=== PATIENT | male | born 1940 | race Caucasian/White ===

== ENCOUNTER → 2017-07-01 20:00 | Outpatient (CLI) | payer MEDICARE, SELFPAY | PROVIDERS: Family Provider Internal Medicine; PCP Internal Medicine; Visit Provider Psychiatry & Neurology Psychiatry | DX: G47.33 Obstructive sleep apnea (adult) (pediatric) (principal) | CPT/HCPCS: 95811 ==

== ENCOUNTER 2017-07-05 14:54 | Emergency (ER) | payer MEDICARE, SELFPAY ==
[2017-07-05 14:55] VITALS: BP 137/77; PULSE 87; RESP 14; TEMP 36.6; O2SAT 99; BMI 27.0
--- NOTE | 2017-07-05 15:10 | RAD_ITS ---
STUDY: X-RAY CHEST REASON FOR EXAM: Male, 77 years old. Chest pain TECHNIQUE: Single frontal view of the chest. COMPARISON: 08/16/2016 FINDINGS: Single chamber defibrillator on the left. The lungs are clear and expanded. There is no demonstrated pleural abnormality. Normal size heart. Normal mediastinum and jeffrey. Normal visualized pulmonary arteries. Normal visualized aortic arch and descending thoracic aorta. Normal visualized thoracic spine. Normal visualized ribs, clavicles, and shoulders. There is no demonstrated abnormality of the visualized soft tissue structures of the upper abdomen. RAD/Chest 1 View (Portable) IMPRESSION: No acute pulmonary findings. Electronically Signed: Ravi Chau MD at 15:50 EDT Tel , Service support ,
--- NOTE | 2017-07-05 15:10 | EKG12_ITS ---
Test Reason : CP Blood Pressure : / mmHG Vent. Rate : 090 BPM Atrial Rate : 090 BPM P-R Int : 246 ms QRS Dur : 122 ms QT Int : 394 ms P-R-T Axes : 063 -46 133 degrees QTc Int : 481 ms Sinus rhythm with 1st degree A-V block Left anterior fascicular block ST & T wave abnormality, consider lateral ischemia Abnormal ECG Confirmed by MOSHE HUERTAS, SARA ([id number]), scientific publications editor BIRGIT HONEYCUTT ([id number] on 07/07/2017 2:38:22 PM Referred By: OLAMIDE Confirmed By:SARA MESA MD
--- NOTE | 2017-07-05 15:18 | ED.VISSUMM ---
- ER Visit Summary Date of Service: 07/05/17 Chief Complaint: Shortness of breath History of Present Illness: The patient is a 77 M history of COPD, cardiomyopathy and defibrillator pacemaker. States since the first week of March he has had shortness of breath. He was treated at an urgent care with steroids I believe an antibiotic. Said he felt somewhat better but now is back to being short of breath. He has a cough is nonproductive. He says only chest pain he has is with soreness with coughing. Denies any hemoptysis. States he goes to [place] every winter in mid February comes back and May 1 week of June and he had similar symptoms last year when he came back in the cold and with seasonal allergies. No history of DVT or PE. Denies any leg pain or swelling. No pleuritic chest pain. Physical Examination: Older male no acute distress. Vital signs are stable afebrile. Pulse ox 99% room air no signs of hypoxia. No distress. HEENT exam unremarkable. Neck nontender no lymphadenopathy. Lungs coarse breath sounds but no rhonchi. Equal symmetrical. Heart regular rate and rhythm rate about 90. No murmur. Chest wall nontender. No crepitus. Abdomen soft and nontender. Moving all 4 extremities. Calves nontender without edema or cords. Neurologically is awake and alert with no focal motor deficits. Test Results: CBC normal white count of 6. BMP normal. Troponin less than 0.02. EKG shows sinus rhythm a rate of 90 with an old left bundle branch block. No acute signs of MD. Unchanged from prior EKG from 2017. Chest x-ray showed a left-sided defibrillator and chronic changes consistent with COPD but no pneumonia or failure. Read both by myself and the radiologist. Emergency Department Course and Treatment: A gentleman with dyspnea with a history of COPD. Undergo cardiac workup along with receiving aerosols and Solu-Medrol. Treatment Plan: Patient doing well on repeat exam after aerosols and Solu-Medrol. He was ambulated in the hallway and his pulse ox went from 91-94 % without being on oxygen. He did well walking. On repeat exam at 17 43 his sat is 96% while lying in bed. He feels comfortable being discharged home. He will be started on prednisone 40 mg a day for 1 week. Follow-up with his primary care physician Dr. Salomon this week. Disposition: Discharge Impression: Acute dyspnea secondary to acute exacerbation of COPD History of cardiomyopathy and defibrillator. This note was generated with [employer] dictation software. It may contain incorrect words, spelling, and punctuation that were not noted in review of the chart prior to signing ED Disposition - Plan for ED Patient: Chief Complaint: Shortness of Breath Referrals: Dustin Salomon MD [Primary Care Provider] -
--- NOTE | 2017-07-05 15:22 | ED.DCSUM_ITS ---
- ER Visit Summary Date of Service: 07/05/17 Chief Complaint: Shortness of breath History of Present Illness: The patient is a 77 M history of COPD, cardiomyopathy and defibrillator pacemaker. States since the first week of March he has had shortness of breath. He was treated at an urgent care with steroids I believe an antibiotic. Said he felt somewhat better but now is back to being short of breath. He has a cough is nonproductive. He says only chest pain he has is with soreness with coughing. Denies any hemoptysis. States he goes to [place] every winter in mid February comes back and May 1 week of June and he had similar symptoms last year when he came back in the cold and with seasonal allergies. No history of DVT or PE. Denies any leg pain or swelling. No pleuritic chest pain. Physical Examination: Older male no acute distress. Vital signs are stable afebrile. Pulse ox 99% room air no signs of hypoxia. No distress. HEENT exam unremarkable. Neck nontender no lymphadenopathy. Lungs coarse breath sounds but no rhonchi. Equal symmetrical. Heart regular rate and rhythm rate about 90. No murmur. Chest wall nontender. No crepitus. Abdomen soft and nontender. Moving all 4 extremities. Calves nontender without edema or cords. Neurologically is awake and alert with no focal motor deficits. Test Results: CBC normal white count of 6. BMP normal. Troponin less than 0.02. EKG shows sinus rhythm a rate of 90 with an old left bundle branch block. No acute signs of AR. Unchanged from prior EKG from 2017. Chest x-ray showed a left-sided defibrillator and chronic changes consistent with COPD but no pneumonia or failure. Read both by myself and the radiologist. Emergency Department Course and Treatment: A gentleman with dyspnea with a history of COPD. Undergo cardiac workup along with receiving aerosols and Solu- Medrol. Treatment Plan: Patient doing well on repeat exam after aerosols and Solu- Medrol. He was ambulated in the hallway and his pulse ox went from 91-94 % without being on oxygen. He did well walking. On repeat exam at 17 43 his sat is 96% while lying in bed. He feels comfortable being discharged home. He will be started on prednisone 40 mg a day for 1 week. Follow-up with his primary care physician Dr. Salomon this week. Disposition: Discharge Impression: Acute dyspnea secondary to acute exacerbation of COPD History of cardiomyopathy and defibrillator. This note was generated with [employer] dictation software. It may contain incorrect words, spelling, and punctuation that were not noted in review of the chart prior to signing ED Disposition - Plan for ED Patient: Chief Complaint: Shortness of Breath Referrals: Dustin Salomon MD [Primary Care Provider] -
[2017-07-05 15:47] LABS: Absolute Lymphocyte Count 0.95 X10^3/ul (0.83-4.51); Absolute Neutrophil Count 3.8 X10^3/uL (2.0-7.7); Basophil# 0.03 X10^3/uL; Basophil% 0.5 % (0-1); Eosinophil# 0.58 X10^3/uL; Eosinophils% 9.6 % (0-5); Hematocrit 38.6 % (40-54); Hemoglobin 13.3 g/dl (13.0-16.5); Lymphocyte # 0.95 X10^3/ul (4.0); Lymphocyte % 15.8 % (19-41); Mean Corp Hgb Conc 34.5 g/gl (32-36); Mean Corpuscular Hgb 32.5 pg (27.0-32.0); Mean Corpuscular Volume 94.4 fL (80-94); Mean Platelet Vol. 9.3 fl (6.2-12.0); Monocyte# 0.69 X10^3/uL; Monocyte% 11.4 % (0-10); Neutrophil # 3.77 X10^3/uL (2.7-7.7); Neutrophil % 62.5 % (47-70); Platelet Count 212 K/mm3 (150-450); RBC Distribution Width SD 43.4 fl (35.1-43.9); Red Blood Count 4.09 M/mm3 (4.6-6.2)
[2017-07-05 15:48] VITALS: PULSE 82; RESP 16
[2017-07-05 15:48] LABS: POSITIVE COUNT NO; POSITIVE DIFFERENTIAL NO; POSITIVE MORPHOLOGY NO
[2017-07-05] MEDS: MethylPREDNISolone 125 MG/2 ML Vial IV (15:48)
[2017-07-05] MEDS: Ipratropium/Albuterol Sulfate 3 ML AMPUL.NEB INHALATION (15:48)
[2017-07-05] MEDS: Albuterol 2.5 MG/3 ML VIAL.NEB. INHALATION ×2 (15:48)
[2017-07-05 15:56] LABS: Anion Gap 5 (5-15); BUN 13 mg/dL (7-18); BUN/Creat Ratio 11.9 RATIO (10-20); Calcium,Total 9.1 mg/dL (8.5-10.1); Chloride 103 mmol/L (98-107); Creatinine, Serum 1.09 mg/dL (0.70-1.30); EST Glomerular Filtration Rate 70 mL/min (>60); Est Glom Filt Rate - Afr Amer 85 mL/min (>60); Estimated Creatinine Clearance 63.28 ml/min; Glucose 89 mg/dL (74-106); Potassium 3.8 mmol/L (3.5-5.1); Sodium Level 137 mmol/L (136-145)
[2017-07-05 16:49] VITALS: O2SAT 95
[2017-07-05 17:33] VITALS: PULSE 95; RESP 20; O2SAT 95
--- NOTE | 2017-07-05 17:45 | ED.DEP ---
ED Disposition - Plan for ED Patient: Disposition: Home or Assisted Living Chief Complaint: Shortness of Breath Instructions: ED COPD Flare Prescriptions: Prednisone [Deltasone] 40 mg PO DAILY 7 Days tab Referrals: Dustin Salomon MD [Primary Care Provider] - 3-5 Days Additional Instructions: Call and follow-up with your doctor this week. Return to ER if you are feeling worse. Prednisone 40 mg a day for 7 days. Use your inhalers as needed.
[2017-07-05 17:52] VITALS: PULSE 95; RESP 14; O2SAT 96
== END 2017-07-05 17:52 | disposition home or self-care (01) ==
PROVIDERS: Emergency Provider Emergency Medicine; Family Provider Internal Medicine; PCP Internal Medicine
DX: J44.1 Chronic obstructive pulmonary disease with (acute) exacerbation (principal); R06.00 Dyspnea, unspecified; I42.9 Cardiomyopathy, unspecified; Z95.810 Presence of automatic (implantable) cardiac defibrillator; Z87.891 Personal history of nicotine dependence; Z79.899 Other long term (current) drug therapy
CPT/HCPCS: 71045; 80048; 84484; 85025; 93005; 94640; 96374; 99284; A4216

== ENCOUNTER → 2017-08-19 12:53 | Outpatient (CLI) | payer MEDICARE, SELFPAY | PROVIDERS: Family Provider Internal Medicine; PCP Internal Medicine; Visit Provider Internal Medicine Cardiovascular Disease | DX: Z00.00 Encounter for general adult medical examination without abnormal findings (principal) ==

== ENCOUNTER → 2017-09-03 06:51 | Outpatient (CLI) | payer MEDICARE, SELFPAY ==
--- NOTE | 2017-09-03 10:00 | STRESSREP ---
Stress Test Report Date: 09/03/2017 Procedure: Pharmacologic stress nuclear imaging study Indications: Shortness of breath/dyspnea Consent: Per the patient Procedure: The patient underwent pharmacologic (Regadenoson) evaluation with a peak heart rate of 86 beats per minute (59 predicted maximal heart rate) and a peak blood pressure of 114/70 mmHg. The baseline ECG demonstrated sinus rhythm with a nonspecific IVCD. The peak pharmacologic ECG demonstrated no obvious ECG changes. There was a rare PVC pretest and during recovery. There was no complaint of chest discomfort during pharmacologic infusion or recovery. The examination was discontinued secondary to completion of protocol. Impression: 1. Pharmacologic (Regadenoson) evaluation 2. Peak pharmacologic ECG with continued nonspecific IVCD with no obvious ECG changes. 3. There was a rare PVC pretest and during recovery 4. Nuclear images pending Myocardial perfusion imaging study: Technique: The patient was injected with 11.7 millicuries of technetium 99m Cardiolite and subsequently rest SPECT Cardiolite nuclear imaging was obtained in the horizontal long, vertical long, and short axis views. The patient underwent pharmacologic (Regadenoson) evaluation with a peak heart rate of 86 beats per minute (59 % percent predicted maximal heart rate) and a peak blood pressure of 114/70 mmHg. The patient was injected with 36 millicuries of technetium 99m Cardiolite and subsequently stress SPECT Cardiolite nuclear imaging was obtained in the horizontal long, vertical long, and short axis views. A gated Cardiolite study at peak stress was obtained. Interpretation: Rest and stress SPECT Cardiolite nuclear imaging status post realignment, normalization, and attenuation correction demonstrate a lot of uniform tracer uptake and myocardial perfusion appearing within normal limits. Also, there appears to be myocardial perfusion findings potentially compatible with left ventricular dilatation. There is diminished end systolic thickening and brightening. The gated Cardiolite study demonstrates diminished myocardial thickening and inward wall motion. The reported LVEF is 33 %. Impression: 1. Rest and stress SPECT Cardiolite nuclear imaging demonstrate relative uniform tracer uptake and myocardial perfusion appearing within normal limits. 2. Also, there appears to be myocardial perfusion findings potentially compatible with left ventricular dilatation. 3. The gated Cardiolite study reports an LVEF of 33 %. This note was generated with [employer] software. It may contain incorrect words, spelling, and punctuation that were not noted in checking the note before signing.
== END ==
PROVIDERS: Family Provider Internal Medicine; PCP Internal Medicine; Visit Provider Internal Medicine Cardiovascular Disease
DX: I42.8 Other cardiomyopathies (principal); I50.22 Chronic systolic (congestive) heart failure; I47.2 Ventricular tachycardia; Z95.810 Presence of automatic (implantable) cardiac defibrillator; R06.02 Shortness of breath
CPT/HCPCS: 78452; 93017; A9500; A4216; J2785

== ENCOUNTER → 2017-12-29 16:09 | Outpatient (CLI) | payer MEDICARE, SELFPAY ==
[2017-12-29 17:03] LABS: Anion Gap 6 (5-15); BUN 19 mg/dL (7-18); BUN/Creat Ratio 16.4 RATIO (10-20); Calcium,Total 9.2 mg/dL (8.5-10.1); Chloride 104 mmol/L (98-107); Creatinine, Serum 1.16 mg/dL (0.70-1.30); EST Glomerular Filtration Rate 65 mL/min (>60); Est Glom Filt Rate - Afr Amer 79 mL/min (>60); Glucose 96 mg/dL (74-106); Potassium 4.5 mmol/L (3.5-5.1); Sodium Level 138 mmol/L (136-145)
[2017-12-29 17:18] LABS: BNP,B-Type NATRIURETIC PEPTIDE 864.1 pg/mL (0-100)
== END ==
PROVIDERS: Family Provider Internal Medicine; PCP Internal Medicine; Referring Provider Nurse Practitioner Family; Visit Provider Nurse Practitioner Family
DX: I42.8 Other cardiomyopathies (principal); R06.09 Other forms of dyspnea; Z95.810 Presence of automatic (implantable) cardiac defibrillator
CPT/HCPCS: 36415; 80048; 83880

== ENCOUNTER → 2018-07-07 | Outpatient (CLI) | payer MEDICARE, SELFPAY ==
[2018-06-30 14:38] VITALS: BMI 24.3
[2018-07-07 10:41] LABS: International Normalized Ratio 2.1; Prothrombin Time (Protime)PT. 23.7 SECONDS (11.7-14.9)
[2018-07-07 11:07] LABS: Albumin, Serum 3.6 g/dL (3.2-5.0); BUN 31 mg/dL (7-18); BUN/Creat Ratio 10.4 RATIO (10-20); Calcium,Total 9.3 mg/dL (8.5-10.1); Chloride 94 mmol/L (98-107); Creatinine, Serum 2.98 mg/dL (0.70-1.30); EST Glomerular Filtration Rate 22 mL/min (>60); Est Glom Filt Rate - Afr Amer 26 mL/min (>60); Glucose 125 mg/dL (74-106); Phosphorus 2.7 mg/dL (2.5-4.9); Sodium Level 135 mmol/L (136-145)
[2018-07-07 11:21] LABS: Digoxin Level 1.51 ng/mL (0.80-2.00)
== END | disposition home or self-care (01) ==
PROVIDERS: Family Provider Internal Medicine; PCP Internal Medicine; Referring Provider Internal Medicine Cardiovascular Disease; Visit Provider Internal Medicine Cardiovascular Disease
DX: I50.22 Chronic systolic (congestive) heart failure (principal); I51.3 Intracardiac thrombosis, not elsewhere classified; I42.8 Other cardiomyopathies; I48.0 Paroxysmal atrial fibrillation; N17.9 Acute kidney failure, unspecified; Z95.810 Presence of automatic (implantable) cardiac defibrillator
CPT/HCPCS: 36415; 80069; 80162; 85610

== ENCOUNTER → 2018-07-08 | Outpatient (CLI) | payer MEDICARE, SELFPAY ==
[2018-06-30 14:38] VITALS: BMI 24.3
--- NOTE | 2018-07-08 10:52 | ECHOL_ITS ---
Reason For Study: CHF Procedure This was a limited 2D transthoracic echocardiogram. The exam was of adequate technical quality. Exam performed in department. Left Ventricle Mildly dilated left ventricle. Apical false tendon noted. Severe segmental systolic dysfunction (see wall motion). The estimated ejection fraction is 20 %. Unable to assess diastolic dysfunction. Anterio-Basal: Hypokinetic. Posterior-Basal: Hypokinetic. Infero-Basal: Severely Hypokinetic. Basal inferoseptal: Severely Hypokinetic. Basal anteroseptal: Hypokinetic. Mid-Anterior : Severely Hypokinetic. Mid-Lateral : Severely Hypokinetic. Mid-Posterior: Akinetic. Mid-Inferior: Akinetic. Mid-inferoseptal : Akinetic. Mid-anteroseptal : Severely Hypokinetic. Mobile : Akinetic. Right Ventricle Normal RV size. ICD or pacer leads identified within the right ventricle. Normal systolic function. Atria The left atrium is severely enlarged. Normal right atrium. ICD or pacer leads identified within the right atrium. No doppler evidence for ASD. Mitral Valve There is no mitral annular calcification. Mild diffuse mitral valve thickening. Mild papillary muscle dysfunction of the mitral valve. Trivial mitral valve insufficiency. Tricuspid Valve Normal tricuspid valve. Mild tricuspid valve insufficiency. Right ventricular systolic pressure estimated to be 53 mmHg. Aortic Valve Trisinus/trileaflet aortic valve. Normal aortic valve. Pulmonic Valve The pulmonic valve is not well visualized. Great Vessels Normal sized aortic root. Pericardium/Pleural No pericardial effusion. MMode/2D Measurements & Calculations LVIDd: 5.7 cm IVSd: 1.1 cm Ao root diam: 2.8 cm LVIDs: 4.7 cm LVPWd: 1.1 cm RVDd: 3.6 cm FS: 17.4 % LAV(MOD-bp): 141.6 ml LA A4 area: 34.0 cm2 LA dimension(2D): 4.3 cm LAV(MOD-bp) Indexed: 71.2 ml/m2 LAV(MOD-sp2): 138.3 ml LAV(MOD-sp4): 138.1 ml RA A4 area: 18.8 cm2 Doppler Measurements & Calculations TR max april: 347.4 cm/sec TR max P.6 mmHg Interpretation Summary Mildly dilated left ventricle. Severe segmental systolic dysfunction (see wall motion). The estimated ejection fraction is 20 %. Apical false tendon noted. The left atrium is severely enlarged. Mild diffuse mitral valve thickening. Mild papillary muscle dysfunction of the mitral valve. Trivial mitral valve insufficiency. Mild tricuspid valve insufficiency. Right ventricular systolic pressure estimated to be 53 mmHg. Unable to assess diastolic dysfunction. ICD or pacer leads identified within the right atrium ICD or pacer leads identified within the right ventricle. Ordering Physician: Irvin Allen Referring Physician: Dustin Salomon Performed By: Su Tucker RDCS, RVT
== END | disposition home or self-care (01) ==
LOC: CVS 10:51
PROVIDERS: Family Provider Internal Medicine; PCP Internal Medicine; Referring Provider Internal Medicine Cardiovascular Disease; Visit Provider Internal Medicine Cardiovascular Disease
DX: I50.22 Chronic systolic (congestive) heart failure (principal); I51.3 Intracardiac thrombosis, not elsewhere classified; E78.00 Pure hypercholesterolemia, unspecified; I42.8 Other cardiomyopathies; Z95.810 Presence of automatic (implantable) cardiac defibrillator
CPT/HCPCS: 93308

== ENCOUNTER 2018-08-03 08:44 | Outpatient (RCR) | payer MEDICARE, SELFPAY ==
[2018-06-30 14:38] VITALS: BMI 24.3
[2018-07-12 11:22] LABS: International Normalized Ratio 2.6; Prothrombin Time (Protime)PT. 28.3 SECONDS (11.7-14.9)
[2018-07-12 11:25] LABS: BUN 27 mg/dL (7-18); Creatinine, Serum 2.81 mg/dL (0.70-1.30); Glucose 133 mg/dL (74-106)
[2018-07-12 11:26] LABS: Anion Gap 4 (5-15); BUN/Creat Ratio 9.6 RATIO (10-20); Calcium,Total 9.4 mg/dL (8.5-10.1); Chloride 94 mmol/L (98-107); EST Glomerular Filtration Rate 23 mL/min (>60); Est Glom Filt Rate - Afr Amer 28 mL/min (>60); Potassium 3.4 mmol/L (3.5-5.1); Sodium Level 129 mmol/L (136-145)
[2018-07-20 08:55] LABS: Albumin, Serum 3.5 g/dL (3.2-5.0); BUN 28 mg/dL (7-18); BUN/Creat Ratio 10.3 RATIO (10-20); Calcium,Total 8.9 mg/dL (8.5-10.1); Chloride 102 mmol/L (98-107); Creatinine, Serum 2.72 mg/dL (0.70-1.30); EST Glomerular Filtration Rate 24 mL/min (>60); Est Glom Filt Rate - Afr Amer 29 mL/min (>60); Glucose 143 mg/dL (74-106); Phosphorus 2.8 mg/dL (2.5-4.9); Potassium 4.1 mmol/L (3.5-5.1); Sodium Level 136 mmol/L (136-145)
[2018-07-20 10:22] LABS: International Normalized Ratio 2.7
[2018-08-03 10:11] LABS: International Normalized Ratio 1.9; Prothrombin Time (Protime)PT. 22.1 SECONDS (11.7-14.9)
[2018-08-03 10:31] LABS: Albumin, Serum 3.3 g/dL (3.2-5.0); BUN 39 mg/dL (7-18); BUN/Creat Ratio 12.8 RATIO (10-20); Calcium,Total 8.8 mg/dL (8.5-10.1); Chloride 103 mmol/L (98-107); Creatinine, Serum 3.04 mg/dL (0.70-1.30); EST Glomerular Filtration Rate 21 mL/min (>60); Est Glom Filt Rate - Afr Amer 26 mL/min (>60); Glucose 147 mg/dL (74-106); Phosphorus 2.8 mg/dL (2.5-4.9); Potassium 3.9 mmol/L (3.5-5.1); Sodium Level 138 mmol/L (136-145)
== END 2018-08-03 10:00 | disposition home or self-care (01) ==
LOC: LAB 08:44
PROVIDERS: Family Provider Internal Medicine; PCP Internal Medicine; Referring Provider Internal Medicine Cardiovascular Disease; Visit Provider Internal Medicine Cardiovascular Disease
DX: N17.9 Acute kidney failure, unspecified (principal); I50.22 Chronic systolic (congestive) heart failure; I48.0 Paroxysmal atrial fibrillation; I51.3 Intracardiac thrombosis, not elsewhere classified
CPT/HCPCS: 36415; 80048; 80069; 85610

== ENCOUNTER 2018-08-23 09:51 | Outpatient (RCR) | payer MEDICARE, SELFPAY ==
[2018-08-07 08:34] VITALS: BMI 24.3
[2018-08-09 10:09] LABS: International Normalized Ratio 2.2
[2018-08-23 10:26] LABS: International Normalized Ratio 2.4; Prothrombin Time (Protime)PT. 26.4 SECONDS (11.7-14.9)
[2018-08-23 11:21] LABS: Albumin, Serum 3.3 g/dL (3.2-5.0); BUN 26 mg/dL (7-18); BUN/Creat Ratio 9.2 RATIO (10-20); Chloride 101 mmol/L (98-107); Creatinine, Serum 2.83 mg/dL (0.70-1.30); EST Glomerular Filtration Rate 23 mL/min (>60); Est Glom Filt Rate - Afr Amer 28 mL/min (>60); Glucose 125 mg/dL (74-106); Phosphorus 3.1 mg/dL (2.5-4.9); Potassium 3.8 mmol/L (3.5-5.1); Sodium Level 138 mmol/L (136-145)
== END 2018-08-23 10:00 | disposition home or self-care (01) ==
LOC: LAB 09:51
PROVIDERS: Family Provider Internal Medicine; PCP Internal Medicine; Referring Provider Internal Medicine Cardiovascular Disease; Visit Provider Internal Medicine Cardiovascular Disease
DX: I50.22 Chronic systolic (congestive) heart failure (principal); I48.0 Paroxysmal atrial fibrillation; I51.3 Intracardiac thrombosis, not elsewhere classified
CPT/HCPCS: 36415; 80069; 85610

== ENCOUNTER 2018-09-20 09:05 | Outpatient (RCR) | payer MEDICARE, SELFPAY ==
[2018-09-03 10:36] VITALS: BMI 24.1
[2018-09-20 10:40] LABS: Prothrombin Time (Protime)PT. 22.7 SECONDS (11.7-14.9)
[2018-09-20 11:25] LABS: Anion Gap 12 (5-15); BUN 35 mg/dL (7-18); BUN/Creat Ratio 11.9 RATIO (10-20); Calcium,Total 8.9 mg/dL (8.5-10.1); Chloride 103 mmol/L (98-107); Creatinine, Serum 2.93 mg/dL (0.70-1.30); EST Glomerular Filtration Rate 22 mL/min (>60); Est Glom Filt Rate - Afr Amer 27 mL/min (>60); Glucose 121 mg/dL (74-106); Potassium 3.5 mmol/L (3.5-5.1); Sodium Level 139 mmol/L (136-145)
== END 2018-10-06 16:00 | disposition home or self-care (01) ==
LOC: LAB 09:05
PROVIDERS: Family Provider Internal Medicine; PCP Internal Medicine; Referring Provider Internal Medicine Cardiovascular Disease; Visit Provider Internal Medicine Cardiovascular Disease
DX: N17.9 Acute kidney failure, unspecified (principal); I50.22 Chronic systolic (congestive) heart failure; I48.0 Paroxysmal atrial fibrillation; I51.3 Intracardiac thrombosis, not elsewhere classified
CPT/HCPCS: 36415; 80048; 85610

== ENCOUNTER 2018-10-03 06:06 | Emergency (ER) | payer MEDICARE, SELFPAY ==
[2018-09-03 10:36] VITALS: BMI 24.1
[2018-10-03 06:07] VITALS: BP 132/94; PULSE 61; RESP 15; TEMP 36.4; O2SAT 99; BMI 24.4
--- NOTE | 2018-10-03 06:18 | RAD_ITS ---
STUDY: X-RAY CHEST REASON FOR EXAM: Male, 78 years old. Cough. TECHNIQUE: PA and lateral views of the chest were obtained. COMPARISON: None. FINDINGS: A left-sided defibrillator is noted. The lungs are clear and expanded. There is no demonstrated pleural abnormality. Normal size heart. Normal mediastinum and jeffrey. Normal visualized pulmonary arteries. Normal visualized aortic arch and descending thoracic aorta. Normal visualized thoracic spine. Normal visualized ribs, clavicles, and shoulders. There is no demonstrated abnormality of the visualized soft tissue structures of the upper abdomen. RAD/Chest PA and Lateral IMPRESSION: Normal x-ray examination of the chest. Electronically Signed: Suleiman Johnson, at 7:02 EDT Tel , Service support ,
--- NOTE | 2018-10-03 06:18 | EKG12_ITS ---
Test Reason : ANXIETY Blood Pressure : / mmHG Vent. Rate : 063 BPM Atrial Rate : 063 BPM P-R Int : 226 ms QRS Dur : 184 ms QT Int : 492 ms P-R-T Axes : -19 146 101 degrees QTc Int : 503 ms AV dual-paced rhythm with prolonged AV conduction with occasional ventricular-paced complexes Biventricular pacemaker detected Abnormal ECG Confirmed by PAM HUERTAS, BEA ([id number]), editor managing director ANGIE WASHINGTON ([id number]) on 10/06/2018 10:36:09 AM Referred By: JOSE M Confirmed By:BEA OROZCO MD
--- NOTE | 2018-10-03 06:19 | ED.VIS.GEN ---
History of Present Illness Informant: Patient Onset: Days - 3 Narrative: Patient here with multiple complaints. Initial complaints shortness of breath worsening since Thursday. Nonproductive cough. Symptoms worse with exertion. No chest pains or tightness with exertion. History of cardiomyopathy, paroxysmal atrial fibrillation on warfarin. Reports pacemaker defibrillator was changed out September 02, is followed by Dr. Allen. Denies any vomiting or diarrhea. Reports this evening had difficulty sleeping, states when he would closely fall asleep would jerk. Denies any increased stress. Denies any NM history. Took Advil PM at 1 AM. Prior similar symptoms: Yes <Abilio Rosario - Last Filed: 10/03/18 06:41> <Brian Garcia - Last Filed: 10/03/18 08:00> Chief Complaint: Anxiety Past Medical History Smoking Status: Never smoker <Abilio Rosario - Last Filed: 10/03/18 06:41> <Brian Garcia - Last Filed: 10/03/18 08:00> - Allergies and Home Meds Allergies/Adverse Reactions: Allergies Penicillins Allergy (Verified 08/05/18 13:17) Hives Sulfa (Sulfonamide Antibiotics) Allergy (Verified 08/05/18 13:17) Hives MILKA Inhibitors Adverse Reaction (Severe, Verified 08/05/18 13:17) cough Primary Care Physician: Dustin Salomon MD [Primary Care Provider] - Review of Systems General: Denies: Chills, Fever, Sweats Eyes: Denies: Visual changes - bilaterally, Diplopia ENT: Denies: Rhinorrhea, Sore throat Cardiovascular: Denies: Chest pain, Palpitations Respiratory: Reports: Dyspnea, Cough. Denies: Dyspnea on exertion Gastrointestinal: Denies: Abdominal pain, Nausea, Vomiting, Diarrhea, Melena, Hematochezia Genitourinary: Denies: Dysuria, Hematuria, Frequency Musculoskeletal: Denies: Back pain, Extremity Pain Skin: Denies: Rash, Wounds Neurological: Denies: Headache, Weakness, Numbness <Abilio Rosario - Last Filed: 10/03/18 06:41> Physical Exam Vital Signs/Narrative: Vital Signs Temp Pulse Resp BP Pulse Ox 10/03/18 06:07 97.6 F L 61 15 132/94 H 99 Inital Vital Signs reviewed: Yes General: Well nourished, Well developed, No Acute Distress Head: Normocephalic, Atraumatic Eyes: Perrl, EOMI ENT: Moist mucous membranes, No rhinorrhea Neck: Supple, Nontender Cardiovascular: Regular rate, Regular rhythm, No murmurs Respiratory: No distress, CTA bilaterally, Chest nontender, - - Left upper chest device, incision clean, dry, intact. Abdomen: Soft, Nontender, Nondistended, Normal bowel sounds Back: Nontender, Normal Inspection Extremities: Nontender, No edema Skin: Normal color, No rash Neurological: Alert, Oriented x3, Cranial nerves II-XII grossly intact, Normal Strength, Normal Sensation Psychological: Normal affect, Normal Mood <Abilio Rosario - Last Filed: 10/03/18 06:41> Vital Signs/Narrative: Vital Signs Temp Pulse Resp BP Pulse Ox 10/03/18 06:07 97.6 F L 61 15 132/94 H 99 <Brian Garcia - Last Filed: 10/03/18 08:00> Diagnostic/Tx/Re-eval - EKG Initial EKG Interpretation: Paced - AV paced rhythm rate of 63 with no acute changes. Comparison to EKG in June 2017 is different however in the interim has had his ICD replaced. - Medical Decision Making Patient vital signs stable. EKG notes a paced rhythm. Labs are sent for evaluation including INR and digoxin evaluation. Chest x-ray ordered. Work-up initiated, patient will be signed out to morning physician for final disposition. <Abilio Rosario - Last Filed: 10/03/18 06:41> Impressions Chest X-Ray 10/03/18 06:18 IMPRESSION: Normal x-ray examination of the chest. Electronically Signed: Suleiman Johnson, at 7:02 EDT Tel , Service support , 10/03/18 06:18 Chest PA and Lateral [RAD] Stat Laboratory Results 10/03/18 10/03/18 10/03/18 06:25 06:25 06:25 WBC 7.3 RBC 3.36 L Hgb 11.3 L Hct 33.8 L MCV 100.6 H MCH 33.6 H MCHC 33.4 RDW Std Deviation 50.1 H RDW Coeff of Bebo 13.6 Plt Count 122 L MPV 9.9 Immature Gran % (Auto) 0.400 Neut % (Auto) 75.8 H Lymph % (Auto) 12.5 L Beaver % (Auto) 9.4 Eos % (Auto) 1.5 Baso % (Auto) 0.4 Absolute Neuts (auto) 5.6 Absolute Lymphs (auto) 0.92 Absolute Nucleated RBC 0.00 Nucleated RBC % 0 PT 24.2 H INR 2.2 Sodium 133 L Potassium 3.7 Chloride 99 Carbon Dioxide 28.0 Anion Gap 6 BUN 35 H Creatinine 2.86 H Estim Creat Clear Calc 23.74 Est GFR (MDRD) Af Amer 28 L Est GFR (MDRD) Non-Af 23 L BUN/Creatinine Ratio 12.2 Glucose 106 Calcium 9.2 Troponin I < 0.015 Digoxin 10/03/18 06:25 WBC RBC Hgb Hct MCV MCH MCHC RDW Std Deviation RDW Coeff of Bebo Plt Count MPV Immature Gran % (Auto) Neut % (Auto) Lymph % (Auto) Beaver % (Auto) Eos % (Auto) Baso % (Auto) Absolute Neuts (auto) Absolute Lymphs (auto) Absolute Nucleated RBC Nucleated RBC % PT INR Sodium Potassium Chloride Carbon Dioxide Anion Gap BUN Creatinine Estim Creat Clear Calc Est GFR (MDRD) Af Amer Est GFR (MDRD) Non-Af BUN/Creatinine Ratio Glucose Calcium Troponin I Digoxin 1.66 - Medical Decision Making Patient has stable chronic renal insufficiency, the rest of his work-up is negative and his INR is therapeutic. His chest x-ray is normal. With ambulation here in the ER, initially his pulse ox was 95, and went up to 98 while exerting himself, and he did not become dyspneic. He keeps talking about how he is very tired and has restless legs and because of that he cannot sleep. According to the , the restless legs has been an ongoing issue that has just been gradually getting worse and it was mainly the reason that the patient came in tonight. Dr. Rosario had offered him a prescription for Vistaril, which I have no issue writing him a temporary supply of, but he is advised to follow-up with his primary care doctor. Since his INR is therapeutic and his x-ray is unremarkable I do not think we need to risk kidney injury to rule out pulmonary embolus. At this time I think he is stable for discharge home. Discussed with him and they are comfortable with this, will also give him a dose of Ativan here prior to discharge as he would like to go home and sleep if able. <Brian Garcia - Last Filed: 10/03/18 08:00> ED Disposition <Abilio Rosario - Last Filed: 10/03/18 06:41> <Brian Garcia - Last Filed: 10/03/18 08:00> - Plan for ED Patient: Disposition: Home or Assisted Living Diagnosis: Dyspnea on exertion, Restless legs Instructions: ED Dyspnea, Understanding Restless Legs Syndrome Prescriptions: hydrOXYzine pamoate capsule [Vistaril] 25 - 50 mg PO TID PRN PRN #20 cap PRN Reason: Anxiety Prescription Printed Referrals: Dustin Salomon MD [Primary Care Provider] - 3-5 Days
[2018-10-03 06:34] LABS: Absolute Lymphocyte Count 0.92 X10^3/uL (0.83-4.51); Absolute Neutrophil Count 5.6 X10^3/uL (2.0-7.7); Basophil# 0.03 X10^3/uL; Basophil% 0.4 % (0-1); Eosinophil# 0.11 X10^3/uL; Eosinophils% 1.5 % (0-5); Hematocrit 33.8 % (40-54); Hemoglobin 11.3 g/dL (13.0-16.5); Lymphocyte # 0.92 X10^3/ul (4.0); Lymphocyte % 12.5 % (19-41); Mean Corp Hgb Conc 33.4 g/dL (32-36); Mean Corpuscular Hgb 33.6 pg (27.0-32.0); Mean Corpuscular Volume 100.6 fL (80-94); Mean Platelet Vol. 9.9 fl (6.2-12.0); Monocyte# 0.69 X10^3/uL; Monocyte% 9.4 % (0-10); NRBC Flagged by Analyzer 0 % (0-5); Neutrophil # 5.56 X10^3/uL (2.7-7.7); Neutrophil % 75.8 % (47-70); Platelet Count 122 K/mm3 (150-450); RBC Distribution Width CV 13.6 % (11.6-14.6); RBC Distribution Width SD 50.1 fl (35.1-43.9); Red Blood Count 3.36 M/mm3 (4.6-6.2); White Blood Count 7.3 K/mm3 (4.4-11.0)
[2018-10-03 06:40] LABS: International Normalized Ratio 2.2; Prothrombin Time (Protime)PT. 24.2 SECONDS (11.7-14.9)
[2018-10-03 06:50] LABS: Anion Gap 6 (5-15); BUN 35 mg/dL (7-18); BUN/Creat Ratio 12.2 RATIO (10-20); Calcium,Total 9.2 mg/dL (8.5-10.1); Chloride 99 mmol/L (98-107); Creatinine, Serum 2.86 mg/dL (0.70-1.30); EST Glomerular Filtration Rate 23 mL/min (>60); Est Glom Filt Rate - Afr Amer 28 mL/min (>60); Estimated Creatinine Clearance 23.74 ml/min; Glucose 106 mg/dL (74-106); Potassium 3.7 mmol/L (3.5-5.1); Sodium Level 133 mmol/L (136-145)
[2018-10-03 07:32] LABS: Digoxin Level 1.66 ng/mL (0.80-2.00)
[2018-10-03 07:42] VITALS: O2SAT 95
[2018-10-03 08:04] VITALS: BP 123/87; PULSE 74; RESP 18
[2018-10-03] MEDS: LORazepam 1 MG Tablet PO (08:06)
== END 2018-10-03 08:11 | disposition home or self-care (01) ==
PROVIDERS: Emergency Provider Emergency Medicine; Family Provider Internal Medicine; PCP Internal Medicine
DX: R06.09 Other forms of dyspnea (principal); G25.81 Restless legs syndrome; I48.0 Paroxysmal atrial fibrillation; I42.9 Cardiomyopathy, unspecified; Z95.0 Presence of cardiac pacemaker; Z79.01 Long term (current) use of anticoagulants
CPT/HCPCS: 71046; 80048; 80162; 84484; 85025; 85610; 93005; 99284; A4216

== ENCOUNTER 2018-10-22 10:37 | Outpatient (RCR) | payer MEDICARE, SELFPAY ==
[2018-10-22 11:36] LABS: Prothrombin Time (Protime)PT. 22.4 SECONDS (11.7-14.9)
[2018-10-22 11:49] LABS: Albumin, Serum 3.7 g/dL (3.2-5.0); Anion Gap 5 (5-15); BUN 39 mg/dL (7-18); BUN/Creat Ratio 13.6 RATIO (10-20); Calcium,Total 8.9 mg/dL (8.5-10.1); Chloride 98 mmol/L (98-107); Creatinine, Serum 2.86 mg/dL (0.70-1.30); EST Glomerular Filtration Rate 23 mL/min (>60); Est Glom Filt Rate - Afr Amer 28 mL/min (>60); Glucose 114 mg/dL (74-106); Phosphorus 4.1 mg/dL (2.5-4.9); Potassium 4.3 mmol/L (3.5-5.1); Sodium Level 133 mmol/L (136-145)
== END 2018-10-22 12:00 | disposition home or self-care (01) ==
LOC: LAB 10:37
PROVIDERS: Family Provider Internal Medicine; PCP Internal Medicine; Referring Provider Internal Medicine Cardiovascular Disease; Visit Provider Internal Medicine Cardiovascular Disease
DX: N17.9 Acute kidney failure, unspecified (principal); I50.22 Chronic systolic (congestive) heart failure; I48.0 Paroxysmal atrial fibrillation; I51.3 Intracardiac thrombosis, not elsewhere classified
CPT/HCPCS: 36415; 80048; 82040; 84100; 85610

== ENCOUNTER 2018-10-25 21:30 | Observation (INO) | payer MEDICARE, SELFPAY ==
[2018-10-25 21:31] VITALS: BP 104/71; PULSE 64; RESP 18; TEMP 36.4; O2SAT 98; BMI 24.8
[2018-10-25 21:46] VITALS: PULSE 65; O2SAT 98
--- NOTE | 2018-10-25 22:06 | RAD_ITS ---
STUDY: X-RAY CHEST REASON FOR EXAM: Male, 78 years old. Shortness of breath TECHNIQUE: Single frontal view of the chest. COMPARISON: 10/03/2018 FINDINGS: Dual-chamber pacemaker defibrillator on the left. The lungs are clear and expanded. There is no demonstrated pleural abnormality. Stable cardiomediastinal silhouette. Normal mediastinum and jeffrey. Normal visualized pulmonary arteries. Normal visualized aortic arch and descending thoracic aorta. Normal visualized thoracic spine. Normal visualized ribs, clavicles, and shoulders. There is no demonstrated abnormality of the visualized soft tissue structures of the upper abdomen. RAD/Chest 1 View (Portable) IMPRESSION: No acute pulmonary findings. Electronically Signed: Ravi Chau MD at 22:31 EDT Tel , Service support ,
--- NOTE | 2018-10-25 22:07 | EKG12_ITS ---
Test Reason : Blood Pressure : / mmHG Vent. Rate : 065 BPM Atrial Rate : 065 BPM P-R Int : 152 ms QRS Dur : 182 ms QT Int : 484 ms P-R-T Axes : 078 153 094 degrees QTc Int : 503 ms Atrial-sensed ventricular-paced rhythm Biventricular pacemaker detected Abnormal ECG Confirmed by PAM HUERTAS, IRVIN ([id number]), editor in chief ANGIE WASHINGTON ([id number]) on 10/28/2018 1:01:38 PM Referred By: Irvin Orozco Confirmed By:IRVIN OROZCO MD
--- NOTE | 2018-10-25 22:10 | ED.DCSUM_ITS ---
History of Present Illness Chief Complaint: Anxiety Informant: Patient, Family Onset: Weeks Current Severity: Moderate Maximum Severity: Moderate Narrative: Patient has had problems with anxiety over the past several weeks. He is unsure if it is related to restless legs. He was seen here in the ER on October 04 and work-up was unremarkable. He was given Vistaril which family states helped for a short time but not for long. He also saw his PCP a few days later and was given prescription for Mirapex which did not help him. Symptoms of seem to be worse over the past 2 days. He states he has trouble sitting still. He denies chest pain. He has shortness of breath when he has a bad panic attack. 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 - Past Medical History (1) shelter (current) use of anticoagulants Status: Chronic (2) Chronic systolic (congestive) heart failure Status: Chronic (3) Paroxysmal atrial fibrillation Status: Acute (4) Pure hypercholesterolemia Status: Chronic (5) Nonsustained ventricular tachycardia Status: Acute (6) History of implantable cardioverter-defibrillator (ICD) placement Status: Chronic (7) Nonischemic cardiomyopathy Status: Chronic (8) Dilated cardiomyopathy Status: Chronic Past Medical History - Allergies and Home Meds Allergies/Adverse Reactions: Allergies Penicillins Allergy (Verified 10/25/18 21:31) Hives Sulfa (Sulfonamide Antibiotics) Allergy (Verified 10/25/18 21:31) Hives MILKA Inhibitors Adverse Reaction (Severe, Verified 10/25/18 21:31) cough Primary Care Physician: Dustin Salomon MD [Primary Care Provider] - Prior records reviewed: Yes Past Medical History: - - Reviewed Lives: Spouse/ Significant Other Smoking Status: Never smoker Review of Systems General: Denies: Chills, Fever Eyes: Denies: Visual changes - bilaterally ENT: Denies: Bilateral ear pain Cardiovascular: Denies: Chest pain Respiratory: Reports: Dyspnea Gastrointestinal: Denies: Abdominal pain, Nausea, Vomiting Genitourinary: Denies: Dysuria Musculoskeletal: Reports: Myalgias Skin: Denies: Rash Neurological: Denies: Headache Psych: Reports: Anxiety. Denies: Suicidal thoughts Physical Exam Vital Signs/Narrative: Vital Signs Temp Pulse Resp BP Pulse Ox 10/25/18 21:46 65 98 10/25/18 21:31 97.5 F L 64 18 104/71 98 Inital Vital Signs reviewed: Yes General: Well nourished, Well developed Head: Normocephalic Eyes: EOMI ENT: Moist mucous membranes Neck: Supple Cardiovascular: Regular rate, Regular rhythm Respiratory: No distress, CTA bilaterally Abdomen: Soft, Nontender Extremities: Nontender Skin: Normal color, No rash Neurological: Alert, Oriented x3, Normal Strength, Normal Sensation Psychological: - - Anxious Diagnostic/Tx/Re-eval Impressions Chest X-Ray 10/25/18 22:06 IMPRESSION: No acute pulmonary findings. Electronically Signed: Ravi Chau MD at 22:31 EDT Tel , Service support , 10/25/18 22:06 Chest 1 View (Portable) [RAD] Stat Laboratory Results 10/25/18 10/25/18 10/25/18 22:30 22:30 22:30 WBC 7.8 RBC 3.76 L Hgb 12.7 L Hct 36.8 L MCV 97.9 H MCH 33.8 H MCHC 34.5 RDW Std Deviation 48.4 H RDW Coeff of Bebo 13.4 Plt Count 138 L MPV 9.9 Immature Gran % (Auto) 0.400 Neut % (Auto) 77.2 H Lymph % (Auto) 12.5 L [place] % (Auto) 8.2 Eos % (Auto) 1.2 Baso % (Auto) 0.5 Absolute Neuts (auto) 6.0 Absolute Lymphs (auto) 0.97 Nucleated RBC % 0 PT INR Sodium 133 L Potassium 4.2 Chloride 100 Carbon Dioxide 28.0 Anion Gap 5 BUN 39 H Creatinine 2.95 H Estim Creat Clear Calc 23.02 Est GFR (MDRD) Af Amer 27 L Est GFR (MDRD) Non-Af 22 L BUN/Creatinine Ratio 13.2 Glucose 132 H Calcium 8.5 Troponin I < 0.015 TSH 9.78 H Free T4 Total T3 Digoxin 1.69 10/25/18 10/25/18 10/25/18 22:30 22:30 22:30 WBC RBC Hgb Hct MCV MCH MCHC RDW Std Deviation RDW Coeff of Bebo Plt Count MPV Immature Gran % (Auto) Neut % (Auto) Lymph % (Auto) [place] % (Auto) Eos % (Auto) Baso % (Auto) Absolute Neuts (auto) Absolute Lymphs (auto) Nucleated RBC % PT 22.7 H INR 2.0 Sodium Potassium Chloride Carbon Dioxide Anion Gap BUN Creatinine Estim Creat Clear Calc Est GFR (MDRD) Af Amer Est GFR (MDRD) Non-Af BUN/Creatinine Ratio Glucose Calcium Troponin I TSH Free T4 1.52 H Total T3 0.78 Digoxin - EKG Initial EKG Interpretation: - - Paced at 65. Unchanged from prior. - Medical Decision Making Patient was initially given 0.5 mg of IV Ativan. He reports no improvement in his anxiety. He is then given a dose of Benadryl IV. Test results are discussed with the patient. I advised him that his thyroid testing indicates hypothyroid, not hyperthyroid. Labs are printed and given to to take to PCP tomorrow. Patient be signed out to oncoming physician for repeat evaluation. Family was updated and is in agreement with the plan. ED Disposition - Plan for ED Patient: Disposition: Home or Assisted Living Diagnosis: Anxiety Instructions: Anxiety Reaction Referrals: Dustin Salomon MD [Primary Care Provider] - Keep [facility] appointment
[2018-10-25] MEDS: LORazepam 2 MG/ML Syringe 0.5 MG IV (22:31)
[2018-10-25 22:41] LABS: Absolute Lymphocyte Count 0.97 X10^3/uL (0.83-4.51); Basophil# 0.04 X10^3/uL; Basophil% 0.5 % (0-1); Eosinophil# 0.09 X10^3/uL; Eosinophils% 1.2 % (0-5); Hematocrit 36.8 % (40-54); Hemoglobin 12.7 g/dL (13.0-16.5); Lymphocyte # 0.97 X10^3/ul (4.0); Lymphocyte % 12.5 % (19-41); Mean Corp Hgb Conc 34.5 g/dL (32-36); Mean Corpuscular Hgb 33.8 pg (27.0-32.0); Mean Corpuscular Volume 97.9 fL (80-94); Mean Platelet Vol. 9.9 fl (6.2-12.0); Monocyte# 0.64 X10^3/uL; Monocyte% 8.2 % (0-10); NRBC Flagged by Analyzer 0 % (0-5); Neutrophil % 77.2 % (47-70); Platelet Count 138 K/mm3 (150-450); RBC Distribution Width CV 13.4 % (11.6-14.6); RBC Distribution Width SD 48.4 fl (35.1-43.9); Red Blood Count 3.76 M/mm3 (4.6-6.2); White Blood Count 7.8 K/mm3 (4.4-11.0)
[2018-10-25 22:47] LABS: Prothrombin Time (Protime)PT. 22.7 SECONDS (11.7-14.9)
[2018-10-25 23:07] LABS: Anion Gap 5 (5-15); BUN 39 mg/dL (7-18); BUN/Creat Ratio 13.2 RATIO (10-20); Calcium,Total 8.5 mg/dL (8.5-10.1); Chloride 100 mmol/L (98-107); Creatinine, Serum 2.95 mg/dL (0.70-1.30); EST Glomerular Filtration Rate 22 mL/min (>60); Est Glom Filt Rate - Afr Amer 27 mL/min (>60); Estimated Creatinine Clearance 23.02 ml/min; Glucose 132 mg/dL (74-106); Potassium 4.2 mmol/L (3.5-5.1); Sodium Level 133 mmol/L (136-145); Thyroid Stim Hormone (TSH) 9.78 uIU/mL (0.358-3.74)
[2018-10-25 23:36] VITALS: BP 129/80; PULSE 68; RESP 15; O2SAT 96
[2018-10-25] MEDS: DiphenhydrAMINE 50 MG/ML Syringe 25 MG IV (23:39)
[2018-10-25 23:42] LABS: T3 Total - Triiodothyronine 0.78 ng/mL (0.6-1.81)
[2018-10-25 23:51] LABS: Digoxin Level 1.69 ng/mL (0.80-2.00); T4 Free Direct 1.52 ng/dL (0.76-1.46)
[2018-10-26] VITALS (10 sets, daily range): BP systolic 123–147; BP diastolic 76–89; PULSE 63–70; RESP 18–21; TEMP 36.3–36.8; O2SAT 98–100; BMI 24.1; BMI 24.2
--- NOTE | 2018-10-26 00:45 | PCM.HP.STD ---
Problem List (1) Akathisia Status: Acute (2) Paroxysmal atrial fibrillation Status: Chronic (3) Left ventricular apical thrombus Status: Chronic (4) Wide-complex tachycardia Status: Chronic (5) Nonsustained ventricular tachycardia Status: Chronic (6) Premature ventricular contraction Status: Chronic History of Present Illness Date of Admission: 10/26/18 Chief Complaint: restlessness The patient is a 78 year old M with a significant history of permanent pacemaker; former smoker; obstructive sleep apnea; proximal A. fib who presented to emergency department with 3-week history of restlessness. Per family patient was prescribed Vistaril which did not help with his symptoms. Also he was prescribed Mirapex which also did not help with his symptoms. At the emergency department patient was found to have elevated TSH and elevated T3. But his T4 was normal. 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 (Chronic) Chronic systolic (congestive) heart failure (Chronic) Paroxysmal atrial fibrillation (Chronic) Left ventricular apical thrombus (Chronic) Pure hypercholesterolemia (Chronic) Premature ventricular contraction (Chronic) Nonsustained ventricular tachycardia (Chronic) Wide-complex tachycardia (Chronic) History of implantable cardioverter-defibrillator (ICD) placement (Chronic ~12/2012) Nonischemic cardiomyopathy (Chronic) Dilated cardiomyopathy (Chronic) Medical History: Medical History (Last Reviewed 10/26/18 @ 01:42 by Constantin Angeles MD) 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) use of anticoagulants (Chronic) Z79.01 Chronic systolic (congestive) heart failure (Chronic) I50.22 Paroxysmal atrial fibrillation (Chronic) I48.0 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 Pure hypercholesterolemia (Chronic) E78.00 Dyspnea on exertion (Inactive) R06.09 Premature ventricular contraction (Acute) I49.3 Nonsustained ventricular tachycardia (Chronic) I47.2 Wide-complex tachycardia (Chronic) I47.2 Nonischemic cardiomyopathy (Chronic) I42.8 Dilated cardiomyopathy (Chronic) I42.0 History of GI bleed Z87.19 LISA (obstructive sleep apnea) G47.33 Degenerative joint disease M19.90 Allergies Penicillins Allergy (Verified 10/25/18 21:31) Hives Sulfa (Sulfonamide Antibiotics) Allergy (Verified 10/25/18 21:31) Hives MILKA Inhibitors Adverse Reaction (Severe, Verified 10/25/18 21:31) cough Home Medications: Ambulatory Orders Medication Instructions Recorded cod liver oil capsule 3 cap PO QDAY cap 07/28/17 multivitamin tablet 1 tab PO QDAY 07/28/17 atorvastatin 40 mg tablet 40 mg PO QHS 06/29/18 torsemide 20 mg tablet 20 mg PO DAILY 06/29/18 warfarin 2.5 mg tablet 2.5 mg PO DAILY 06/29/18 metoprolol succinate ER 100 mg 100 mg PO BID #180 tab 07/06/18 tablet,extended release 24 hr hydralazine 10 mg tablet 10 mg PO TID #90 tab 07/09/18 isosorbide dinitrate 10 mg tablet 5 mg PO TID #90 tab 07/14/18 digoxin 125 mcg tablet 125 mcg PO QDAY #90 tab 08/30/18 potassium chloride ER 20 mEq 40 meq PO QDAY #180 tab 08/30/18 tablet,extended release amiodarone 200 mg tablet 200 mg PO DAILY #90 tab 10/21/18 Surgical History: Surgical History (Last Reviewed 10/26/18 @ 01:38 by Constantin Angeles MD) History of implantable cardioverter-defibrillator (ICD) placement (Chronic) Onset Date: ~12/2012 Z95.810 History of hip surgery Z98.890 Hx of appendectomy Z90.49 Lives: Spouse/ Significant Other Smoking Status: Former smoker Alcohol: None - *Family History Paternal Family History: Family History (Last Reviewed 10/26/18 @ 01:38 by Constantin Angeles MD) Grandmother CHF (congestive heart failure) Grandfather CHF (congestive heart failure) Father CHF (congestive heart failure) Review of Systems Constitutional: Denies: Chills, Fever, Weight Change HEENT: Denies: Head Aches, Sinus Congestion, Sinus Drainage Cardiovascular: Denies: Chest Pain, Palpitations Respiratory: Denies: Cough, Shortness of breath at rest, Sputum production Gastrointestinal: Denies: Abdominal Pain, Nausea, Vomiting Genitourinary: Denies: Dysuria Musculoskeletal: Denies: Joint Pain, Joint Tenderness Skin: Denies: Rash, Wounds Neurological: Denies: Numbness, Tingling, Focal weakness Psychiatric: Reports: Anxiety. Denies: Depression, Homicidal Ideations, Suicidal Ideations Hematologic/ Lymphatic: Denies: Easy Bruising, Easy Bleeding VTE Information - Inpt Only VTE Present on Admission: No VTE Mechan Device Prophylaxis: None VTE Pharm Prophylaxis ordered?: No Reason prophylaxis not ordered:: Treatment Not Indicated - Coumadin for A. fib continued Patient Problems: Active and Suspected Problems (Last Reviewed 10/26/18 @ 01:42 by Constantin Angeles MD) Anxiety (Acute) Akathisia (Acute) - Physical Exam General: Alert, Oriented x3, Cooperative, - - Patient was fidgeting and moving his legs in pain. HEENT: Atraumatic, PERRLA, EOMI, Normocephalic Neck: Supple, No JVD, Negative Carotid Bruits Lungs: Clear to auscultation, Normal air movement Cardiovascular: Regular rate, No murmurs Abdomen: Bowel Sounds Present, Soft, Non Tender Extremities: No edema, Capillary Refill Less than 3 Seconds Skin: No rashes, No breakdown Musculoskeletal: No Tenderness to Palpation of Joints or Extremities Neurological: Cranial nerves II-XII grossly intact Psych/Mental Status: Anxious Vital Signs Temp Pulse Resp BP Pulse Ox 97.5 F L 68 15 129/80 H 96 10/25/18 21:31 10/25/18 23:36 10/25/18 23:36 10/25/18 23:36 10/25/18 23:36 Oxygen Delivery Method Room Air Weight: 83.1 kg Body Mass Index (BMI) 24.8 Laboratory Tests Past 24 Hrs 10/25/18 10/25/18 10/25/18 22:30 22:30 22:30 WBC 7.8 RBC 3.76 L Hgb 12.7 L Hct 36.8 L MCV 97.9 H MCH 33.8 H MCHC 34.5 RDW Std Deviation 48.4 H RDW Coeff of Bebo 13.4 Plt Count 138 L MPV 9.9 Immature Gran % (Auto) 0.400 Neut % (Auto) 77.2 H Lymph % (Auto) 12.5 L [place] % (Auto) 8.2 Eos % (Auto) 1.2 Baso % (Auto) 0.5 Absolute Neuts (auto) 6.0 Absolute Lymphs (auto) 0.97 Nucleated RBC % 0 PT INR Sodium 133 L Potassium 4.2 Chloride 100 Carbon Dioxide 28.0 Anion Gap 5 BUN 39 H Creatinine 2.95 H Estim Creat Clear Calc 23.02 Est GFR (MDRD) Af Amer 27 L Est GFR (MDRD) Non-Af 22 L BUN/Creatinine Ratio 13.2 Glucose 132 H Calcium 8.5 Troponin I < 0.015 TSH 9.78 H Free T4 Total T3 Digoxin 1.69 10/25/18 10/25/18 10/25/18 22:30 22:30 22:30 WBC RBC Hgb Hct MCV MCH MCHC RDW Std Deviation RDW Coeff of Bebo Plt Count MPV Immature Gran % (Auto) Neut % (Auto) Lymph % (Auto) [place] % (Auto) Eos % (Auto) Baso % (Auto) Absolute Neuts (auto) Absolute Lymphs (auto) Nucleated RBC % PT 22.7 H INR 2.0 Sodium Potassium Chloride Carbon Dioxide Anion Gap BUN Creatinine Estim Creat Clear Calc Est GFR (MDRD) Af Amer Est GFR (MDRD) Non-Af BUN/Creatinine Ratio Glucose Calcium Troponin I TSH Free T4 1.52 H Total T3 0.78 Digoxin Assessment/Plan All Active Problems (Last Reviewed 10/26/18 @ 01:42 by Constantin Angeles MD) Anxiety (Acute) Akathisia (Acute) The patient is a 78 year old M with a significant history of permanent pacemaker; former smoker; obstructive sleep apnea; proximal A. fib who presented to emergency department with 3-week history of restlessness consistent with probable akathisia. Akathisia Etiology unclear. Patient received Cogentin; Ativan and Benadryl at the emergency department. Scheduled Cogentin ordered. PRN Benadryl and PRN Ativan ordered. Etiology is unclear at this time. Will seek neurology input. Elevated TSH. Also noted to have elevated T3 but normal T4. Recommend repeating this labs outpatient. Family to look for pacemaker paper so that we can know whether his pacemaker is MRI compatible. Consider MRI. Atrial fibrillation Amiodarone; digoxin and Coumadin continued. INR is therapeutic. Obstructive sleep apnea CPAP continued Congestive heart failure Torsemide with potassium continued DVT prophylaxis Coumadin for A. fib continued. Code Visit OBSV E&M: [id number] Initial observation care L3
[2018-10-26] MEDS: hydrALAZINE 10 MG Tablet PO ×3 (05:09→21:41)
[2018-10-26] MEDS: Benztropine 2 MG Tablet 0.5 MG PO ×2 (05:12→14:42)
[2018-10-26] MEDS: Isosorbide DN 10 MG Tablet 5 MG PO ×3 (05:12→21:41)
[2018-10-26] MEDS: Furosemide 40 MG Tablet PO (09:19)
[2018-10-26] MEDS: Multivitamins,Therapeutic Tablet 1 TABLET PO (09:19)
[2018-10-26] MEDS: Metoprolol(XL)Succ 100 MG Tablet PO ×2 (09:19→21:41)
[2018-10-26] MEDS: Amiodarone 200 MG Tablet PO (09:19)
[2018-10-26] MEDS: Digoxin 125 MCG Tablet PO (09:20)
[2018-10-26] MEDS: Enoxaparin 30 MG/0.3 ML Syringe SC (09:23)
--- NOTE | 2018-10-26 11:17 | CON.PCM_ITS ---
Reason for Consult Date of Consultation: 10/26/18 Reason for Consultation: akasthisia History of Present Illness: The patient is a 78 year old right handed white male who initially began experienced feeling restless in may after hospitalization for chf in [facility], progressively worse, has been given mirapex and vistaril 3weeks ago in ed, no benefit, worse, now re-admitted and improved after medication with benadryl and lorazepam. three daughters and present who also wonder about anxiety. daughters report new pacer/defib two months ago, and kidney failure which is known, due to cardiac issues, family reports creatinine improved. 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 (Chronic) Chronic systolic (congestive) heart failure (Chronic) Paroxysmal atrial fibrillation (Chronic) Left ventricular apical thrombus (Chronic) Pure hypercholesterolemia (Chronic) Premature ventricular contraction (Chronic) Nonsustained ventricular tachycardia (Chronic) Wide-complex tachycardia (Chronic) History of implantable cardioverter-defibrillator (ICD) placement (Chronic ~12/2012) Nonischemic cardiomyopathy (Chronic) Dilated cardiomyopathy (Chronic) Medical History: Medical History (Last Reviewed 10/26/18 @ 01:42 by Constantin Angeles MD) nursing home (current) use of anticoagulants (Chronic) Z79.01 Chronic systolic (congestive) heart failure (Chronic) I50.22 Paroxysmal atrial fibrillation (Chronic) I48.0 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 Pure hypercholesterolemia (Chronic) E78.00 Dyspnea on exertion (Inactive) R06.09 Premature ventricular contraction (Chronic) I49.3 Nonsustained ventricular tachycardia (Chronic) I47.2 Wide-complex tachycardia (Chronic) I47.2 Nonischemic cardiomyopathy (Chronic) I42.8 Dilated cardiomyopathy (Chronic) I42.0 History of GI bleed Z87.19 LISA (obstructive sleep apnea) G47.33 Degenerative joint disease M19.90 Allergies Penicillins Allergy (Verified 10/25/18 21:31) Hives Sulfa (Sulfonamide Antibiotics) Allergy (Verified 10/25/18 21:31) Hives MILKA Inhibitors Adverse Reaction (Severe, Verified 10/25/18 21:31) cough Home Medications: Ambulatory Orders Medication Instructions Recorded cod liver oil capsule 3 cap PO QDAY cap 07/28/17 multivitamin tablet 1 tab PO QDAY 07/28/17 atorvastatin 40 mg tablet 40 mg PO QHS 06/29/18 torsemide 20 mg tablet 20 mg PO DAILY 06/29/18 warfarin 2.5 mg tablet 2.5 mg PO DAILY 06/29/18 Amiodarone HCl 200 mg PO DAILY 10/26/18 Digoxin 125 mcg PO QDAY 10/26/18 Hydralazine HCl 10 mg PO TID 10/26/18 Isosorbide DN [Isordil] 5 mg PO TID 10/26/18 Metoprolol Succinate 100 mg PO BID 10/26/18 Potassium Chloride [K-Tab ER] 40 meq PO QDAY 10/26/18 Surgical History: Surgical History (Last Reviewed 10/26/18 @ 11:23 by Sebastián Owusu MD) History of implantable cardioverter-defibrillator (ICD) placement (Chronic) Onset Date: ~12/2012 Z95.810 History of hip surgery Z98.890 Hx of appendectomy Z90.49 Lives: Spouse/ Significant Other Alcohol: None - *Family History Paternal Family History: Family History (Last Reviewed 10/26/18 @ 11:23 by Sebastián Owusu MD) Grandmother CHF (congestive heart failure) Grandfather CHF (congestive heart failure) Father CHF (congestive heart failure) Review of Systems Constitutional: Denies: Chills, Fever, Weight Change HEENT: Denies: Head Aches, Sinus Congestion, Sinus Drainage Cardiovascular: Denies: Chest Pain, Palpitations Respiratory: Denies: Cough, Shortness of breath at rest, Sputum production Gastrointestinal: Denies: Abdominal Pain, Nausea, Vomiting Genitourinary: Denies: Dysuria Musculoskeletal: Denies: Joint Pain, Joint Tenderness Skin: Denies: Rash, Wounds Neurological: Denies: Numbness, Tingling, Focal weakness Psychiatric: Denies: Anxiety, Depression, Homicidal Ideations, Suicidal Ideations Hematologic/ Lymphatic: Denies: Easy Bruising, Easy Bleeding Patient Problems: Active and Suspected Problems (Last Reviewed 10/26/18 @ 01:42 by Constantin Angeles MD) Anxiety (Acute) Akathisia (Acute) - Physical Exam General: Alert, Oriented x3, Cooperative, No apparent distress HEENT: PERRLA, EOMI Neurological: Cranial nerves II-XII grossly intact, Deep Tendon Reflexes 2+/4 and Symmetrical, Neuro grossly intact Psych/Mental Status: Normal Affect, Alert and oriented to time, place, person, mood and affect Vital Signs Temp Pulse Resp BP Pulse Ox 36.7 C 63 18 147/76 H 100 10/26/18 09:15 10/26/18 09:20 10/26/18 09:15 10/26/18 09:15 10/26/18 09:15 Oxygen Delivery Method Room Air Weight: 80.824 kg Body Mass Index (BMI) 24.1 Intake and Output for Last 24 Hours 10/24/18 10/25/18 10/26/18 23:59 23:59 23:59 Intake Total 60 / 60 Balance 60 / 60 Laboratory Tests Past 24 Hrs 10/25/18 10/25/18 10/25/18 22:30 22:30 22:30 WBC 7.8 RBC 3.76 L Hgb 12.7 L Hct 36.8 L MCV 97.9 H MCH 33.8 H MCHC 34.5 RDW Std Deviation 48.4 H RDW Coeff of Bebo 13.4 Plt Count 138 L MPV 9.9 Immature Gran % (Auto) 0.400 Neut % (Auto) 77.2 H Lymph % (Auto) 12.5 L [place] % (Auto) 8.2 Eos % (Auto) 1.2 Baso % (Auto) 0.5 Absolute Neuts (auto) 6.0 Absolute Lymphs (auto) 0.97 Nucleated RBC % 0 PT INR Sodium 133 L Potassium 4.2 Chloride 100 Carbon Dioxide 28.0 Anion Gap 5 BUN 39 H Creatinine 2.95 H Estim Creat Clear Calc 23.02 Est GFR (MDRD) Af Amer 27 L Est GFR (MDRD) Non-Af 22 L BUN/Creatinine Ratio 13.2 Glucose 132 H Calcium 8.5 Troponin I < 0.015 TSH 9.78 H Free T4 Total T3 Digoxin 1.69 10/25/18 10/25/18 10/25/18 22:30 22:30 22:30 WBC RBC Hgb Hct MCV MCH MCHC RDW Std Deviation RDW Coeff of Bebo Plt Count MPV Immature Gran % (Auto) Neut % (Auto) Lymph % (Auto) [place] % (Auto) Eos % (Auto) Baso % (Auto) Absolute Neuts (auto) Absolute Lymphs (auto) Nucleated RBC % PT 22.7 H INR 2.0 Sodium Potassium Chloride Carbon Dioxide Anion Gap BUN Creatinine Estim Creat Clear Calc Est GFR (MDRD) Af Amer Est GFR (MDRD) Non-Af BUN/Creatinine Ratio Glucose Calcium Troponin I TSH Free T4 1.52 H Total T3 0.78 Digoxin Current Home Med List Medication Instructions Recorded Confirmed Type cod liver oil capsule 3 cap PO QDAY cap 07/28/17 10/26/18 History multivitamin tablet 1 tab PO QDAY 07/28/17 10/26/18 History atorvastatin 40 mg tablet 40 mg PO QHS 06/29/18 10/26/18 History torsemide 20 mg tablet 20 mg PO DAILY 06/29/18 10/26/18 History warfarin 2.5 mg tablet 2.5 mg PO DAILY 06/29/18 10/26/18 History Amiodarone HCl 200 mg PO DAILY 10/26/18 10/26/18 History Digoxin 125 mcg PO QDAY 10/26/18 10/26/18 History Hydralazine HCl 10 mg PO TID 10/26/18 10/26/18 History Isosorbide DN [Isordil] 5 mg PO TID 10/26/18 10/26/18 History Metoprolol Succinate 100 mg PO BID 10/26/18 10/26/18 History Potassium Chloride [K-Tab ER] 40 meq PO QDAY 10/26/18 10/26/18 History Current Medications Generic Name Dose Route Start Last Admin Trade Name Freq PRN Reason Stop Dose Admin Acetaminophen 650 mg 10/26/18 01:53 Tylenol PO Q6H PRN PRN Mild Pain (1-3)/Temp > 100.7 F Amiodarone HCl 200 mg 10/26/18 10:00 10/26/18 09:19 Cordarone PO 200 mg DAILY GREG Administration Atorvastatin Calcium 40 mg 10/26/18 22:00 Lipitor PO QHS GREG Benztropine Mesylate 0.5 mg 10/26/18 06:00 10/26/18 05:12 Cogentin PO 0.5 mg TID GREG Administration Dextrose 0 gm 10/26/18 01:53 D50w Syringe IV X1 PRN Hypoglycemia Protocol Digoxin 125 mcg 10/26/18 10:00 10/26/18 09:20 Lanoxin PO 125 mcg DAILY GREG Administration Diphenhydramine HCl 25 mg 10/26/18 01:53 Benadryl PO TID PRN PRN RESTLESSNESS Enoxaparin Sodium 30 mg 10/26/18 10:00 10/26/18 09:23 Lovenox SC 30 mg DAILY@1000 GREG Administration Furosemide 40 mg 10/26/18 10:00 10/26/18 09:19 Lasix PO 40 mg DAILY GREG Administration Glucagon 1 mg 10/26/18 01:53 IM .X1 PRN Hypoglycemia Hydralazine HCl 10 mg 10/26/18 06:00 10/26/18 05:09 Apresoline PO 10 mg TID [facility] Administration Isosorbide Dinitrate 5 mg 10/26/18 06:00 10/26/18 05:12 Isordil PO 5 mg TID [facility] Administration Lorazepam 0.5 mg 10/26/18 01:53 Ativan IV Q6H PRN PRN ANXIETY Melatonin 3 mg 10/26/18 01:53 Melatonin PO QHS PRN PRN INSOMNIA Metoprolol Succinate 100 mg 10/26/18 10:00 10/26/18 09:19 Toprol Xl (Beta Primo) PO 100 mg BID [facility] Administration Multivitamins 1 tablet 10/26/18 08:00 10/26/18 09:19 Multivitamin PO 1 tablet DAILY@0800 [facility] [place] Administration Ondansetron HCl 4 mg 10/26/18 01:53 Zofran IV Q8H PRN PRN NAUSEA/VOMITING Potassium Chloride 40 meq 10/26/18 10:00 10/26/18 09:19 K-Dur PO 40 meq DAILY GREG Administration Sodium Chloride 10 - 40 ml 10/26/18 04:40 IV UD PRN SALINE FLUSH Warfarin Sodium 2.5 mg 10/26/18 17:00 Coumadin (Pbkc) PO DAILY@1700 [facility] Protocol Assessment/Plan All Active Problems (Last Reviewed 10/26/18 @ 01:42 by Constantin Angeles MD) Anxiety (Acute) Akathisia (Acute) severe RLS, improved, likely due to elevated creatinine due to cardiomyopathy agree with cogentin, prn benzos confirm dose of mirapex iron studies consider ssri
[2018-10-26 12:54] LABS: Ferritin 318 ng/mL (26-388); Iron 35 ug/dL (65-175); Iron Binding Capacity,Total 341 ug/dL (250-450); PERCENT IRON SATURATION 10.3 % (15.0-55.0)
[2018-10-26 12:55] LABS: AST(SGOT) 20 U/L (15-37); Alanine Aminotransfer ALT/SGPT 36 U/L (16-61); Albumin, Serum 3.6 g/dL (3.2-5.0); Alkaline Phosphatase 58 U/L (45-117); Bilirubin, Direct 0.39 mg/dL (0.00-0.30); Ferritin 313 ng/mL (26-388); Globulin 3.8 g/dL (2.2-4.2); Iron 32 ug/dL (65-175); Iron Binding Capacity,Total 312 ug/dL (250-450); Magnesium 2.9 mg/dL (1.6-2.6); PERCENT IRON SATURATION 10.3 % (15.0-55.0); Protein, Total 7.4 g/dL (6.4-8.2)
--- NOTE | 2018-10-26 14:29 | PCM.PROGNOTE ---
Patient Problems: Active and Suspected Problems (Last Reviewed 10/26/18 @ 01:42 by Constantin Angeles MD) Anxiety (Acute) Akathisia (Acute) Subjective: Patient seen and examined. He reports intermittent panic attacks. Restlessness significantly improved. Complains of intermittent shortness of breath which resolves with a few deep breaths. Family at bedside and discussed plan of care. - Physical Exam General: Alert, Oriented x3, Cooperative HEENT: Atraumatic, PERRLA, EOMI, Normocephalic Neck: Supple, No JVD, Negative Carotid Bruits Lungs: Clear to auscultation, Normal air movement Cardiovascular: Regular rate, No murmurs Abdomen: Bowel Sounds Present, Soft, Non Tender Extremities: No clubbing, No cyanosis, No edema, Capillary Refill Less than 3 Seconds Skin: No rashes, No breakdown Musculoskeletal: No Tenderness to Palpation of Joints or Extremities Neurological: Cranial nerves II-XII grossly intact, Neuro grossly intact Psych/Mental Status: Anxious Vital Signs Temp Pulse Resp BP Pulse Ox 98.1 F 63 18 147/76 H 100 10/26/18 09:15 10/26/18 09:20 10/26/18 09:15 10/26/18 09:15 10/26/18 09:15 Oxygen Delivery Method Room Air Weight: 178 lb 3 oz Body Mass Index (BMI) 24.1 Intake and Output for Last 24 Hours 10/24/18 10/25/18 10/26/18 23:59 23:59 23:59 Intake Total 300 / 300 Balance 300 / 300 Laboratory Tests Past 24 Hrs 10/25/18 10/25/18 10/25/18 22:30 22:30 22:30 WBC 7.8 RBC 3.76 L Hgb 12.7 L Hct 36.8 L MCV 97.9 H MCH 33.8 H MCHC 34.5 RDW Std Deviation 48.4 H RDW Coeff of Bebo 13.4 Plt Count 138 L MPV 9.9 Immature Gran % (Auto) 0.400 Neut % (Auto) 77.2 H Lymph % (Auto) 12.5 L [place] % (Auto) 8.2 Eos % (Auto) 1.2 Baso % (Auto) 0.5 Absolute Neuts (auto) 6.0 Absolute Lymphs (auto) 0.97 Nucleated RBC % 0 PT INR Sodium 133 L Potassium 4.2 Chloride 100 Carbon Dioxide 28.0 Anion Gap 5 BUN 39 H Creatinine 2.95 H Estim Creat Clear Calc 23.02 Est GFR (MDRD) Af Amer 27 L Est GFR (MDRD) Non-Af 22 L BUN/Creatinine Ratio 13.2 Glucose 132 H Calcium 8.5 Phosphorus Magnesium Iron TIBC Iron Saturation Ferritin Total Bilirubin Direct Bilirubin AST ALT Alkaline Phosphatase Troponin I < 0.015 Total Protein Albumin Globulin TSH 9.78 H Free T4 Total T3 Digoxin 1.69 10/25/18 10/25/18 10/25/18 22:30 22:30 22:30 WBC RBC Hgb Hct MCV MCH MCHC RDW Std Deviation RDW Coeff of Bebo Plt Count MPV Immature Gran % (Auto) Neut % (Auto) Lymph % (Auto) [place] % (Auto) Eos % (Auto) Baso % (Auto) Absolute Neuts (auto) Absolute Lymphs (auto) Nucleated RBC % PT 22.7 H INR 2.0 Sodium Potassium Chloride Carbon Dioxide Anion Gap BUN Creatinine Estim Creat Clear Calc Est GFR (MDRD) Af Amer Est GFR (MDRD) Non-Af BUN/Creatinine Ratio Glucose Calcium Phosphorus Magnesium Iron TIBC Iron Saturation Ferritin Total Bilirubin Direct Bilirubin AST ALT Alkaline Phosphatase Troponin I Total Protein Albumin Globulin TSH Free T4 1.52 H Total T3 0.78 Digoxin 10/26/18 10/26/18 11:53 11:53 WBC RBC Hgb Hct MCV MCH MCHC RDW Std Deviation RDW Coeff of Bebo Plt Count MPV Immature Gran % (Auto) Neut % (Auto) Lymph % (Auto) [place] % (Auto) Eos % (Auto) Baso % (Auto) Absolute Neuts (auto) Absolute Lymphs (auto) Nucleated RBC % PT INR Sodium Potassium Chloride Carbon Dioxide Anion Gap BUN Creatinine Estim Creat Clear Calc Est GFR (MDRD) Af Amer Est GFR (MDRD) Non-Af BUN/Creatinine Ratio Glucose Calcium Phosphorus 3.0 Magnesium 2.9 H Iron 32 L 35 L TIBC 312 341 Iron Saturation 10.3 L 10.3 L Ferritin 313 318 Total Bilirubin 1.70 H Direct Bilirubin 0.39 H AST 20 ALT 36 Alkaline Phosphatase 58 Troponin I Total Protein 7.4 Albumin 3.6 Globulin 3.8 TSH Free T4 Total T3 Digoxin Assessment/Plan All Active Problems (Last Reviewed 10/26/18 @ 01:42 by Constantin Angeles MD) Anxiety (Acute) Akathisia (Acute) 1. Akathisia, suspect multifactorial secondary to underlying anxiety/panic disorder, iron deficiency, CKD stage IV and severe cardiomyopathy-feel the largest contributing factor is underlying anxiety. Family reports patient has had panic attacks that have been untreated for some time now. Initiate Zoloft 50 mg daily. Add Klonopin 0.5 mg twice daily. Recommend outpatient follow-up with counseling. Family and patient in agreement. Recommend titrating Zoloft as outpatient to reach desired effect and then can taper and discontinue Klonopin when symptoms are better controlled. Patient symptoms have improved currently. Will monitor overnight and plan for discharge home tomorrow if continued improvement. 2. Iron deficiency, macrocytic anemia-IV Venofer x1. Oral iron 325 mg twice daily. 3. Paroxysmal atrial fibrillation-rate controlled. On amiodarone, digoxin and Coumadin. Digoxin level normal. INR therapeutic. 4. LISA-continue CPAP regimen. 5. Hypertension-stable, continue home hydralazine, isosorbide, metoprolol regimen. 6. Non-CAD related cardiomyopathy/chronic systolic CHF/ventricular dysrhythmias-status post ICD placement. Follows with Dr. Allen. Echocardiogram July 2018 with EF 20%. Continue statin, metoprolol, isosorbide, torsemide regimen. 7. Chronic kidney disease stage IV-at baseline, trend BMP. DVT prophylaxis- coumadin This patient was seen by SAGE Buchanan under the supervision of Dr. Sarah.
[2018-10-26] MEDS: Sertraline 50 MG Tablet PO (15:18)
[2018-10-26] MEDS: clonazePAM 0.5 MG Tablet PO (15:18)
[2018-10-26] MEDS: Ferrous Sulfate 325 MG Tablet PO (17:15)
[2018-10-26] MEDS: DiphenhydrAMINE 25 MG Capsule PO (21:40)
[2018-10-26] MEDS: Atorvastatin Calcium 40 MG Tablet PO (21:42)
[2018-10-26] MEDS: Acetaminophen 325 MG Tablet 650 MG PO (23:32)
[2018-10-26] MEDS: MELATONIN 3 MG TABLET PO (23:42)
[2018-10-27 02:37] VITALS: BP 106/70; PULSE 59; RESP 17; TEMP 36.8; O2SAT 95
[2018-10-27] MEDS: clonazePAM 0.5 MG Tablet PO (02:41)
[2018-10-27 05:35] VITALS: PULSE 60
[2018-10-27] MEDS: hydrALAZINE 10 MG Tablet PO (05:35)
[2018-10-27] MEDS: Isosorbide DN 10 MG Tablet 5 MG PO (05:35)
[2018-10-27 05:40] LABS: Hematocrit 35.6 % (40-54); Hemoglobin 11.6 g/dL (13.0-16.5); Mean Corp Hgb Conc 32.6 g/dL (32-36); Mean Corpuscular Hgb 32.6 pg (27.0-32.0); Mean Platelet Vol. 10.2 fl (6.2-12.0); Platelet Count 118 K/mm3 (150-450); RBC Distribution Width CV 13.4 % (11.6-14.6); RBC Distribution Width SD 49.5 fl (35.1-43.9); Red Blood Count 3.56 M/mm3 (4.6-6.2); White Blood Count 5.8 K/mm3 (4.4-11.0)
[2018-10-27 05:58] LABS: Anion Gap 8 (5-15); BUN 37 mg/dL (7-18); BUN/Creat Ratio 14.1 RATIO (10-20); Calcium,Total 8.2 mg/dL (8.5-10.1); Chloride 108 mmol/L (98-107); Creatinine, Serum 2.63 mg/dL (0.70-1.30); EST Glomerular Filtration Rate 25 mL/min (>60); Est Glom Filt Rate - Afr Amer 31 mL/min (>60); Estimated Creatinine Clearance 25.82 ml/min; Glucose 95 mg/dL (74-106); Potassium 4.3 mmol/L (3.5-5.1); Sodium Level 140 mmol/L (136-145)
[2018-10-27 08:16] VITALS: BP 108/72; PULSE 60; RESP 18; TEMP 36.8; O2SAT 97
[2018-10-27] MEDS: Multivitamins,Therapeutic Tablet 1 TABLET PO (08:16)
[2018-10-27 08:20] VITALS: PULSE 60
--- NOTE | 2018-10-27 11:02 | PCM.DC ---
- Discharge Diagnoses Current Active Problems: Current Active and Chronic Problems (Last Reviewed 10/26/18 @ 01:42 by Constantin Angeles MD) Anxiety (Acute) Akathisia (Acute) You will use the following diet at home:: Cardiac Discharge Activity: Return to Normal Activity Call your doctor if you observe: Shortness of breath, Dizziness, Fainting spells, Chest pain Instructions: Anxiety Reaction Allergies/Adverse Reactions: Allergies Penicillins Allergy (Verified 10/25/18 21:31) Hives Sulfa (Sulfonamide Antibiotics) Allergy (Verified 10/25/18 21:31) Hives MILKA Inhibitors Adverse Reaction (Severe, Verified 10/25/18 21:31) cough Medications to take at Discharge cod liver oil capsule 3 cap PO QDAY cap 07/28/17 multivitamin tablet 1 tab PO QDAY 07/28/17 atorvastatin 40 mg tablet 40 mg PO QHS 06/29/18 torsemide 20 mg tablet 20 mg PO DAILY 06/29/18 warfarin 2.5 mg tablet 2.5 mg PO DAILY 06/29/18 Amiodarone HCl 200 mg PO DAILY 10/26/18 Digoxin 125 mcg PO QDAY 10/26/18 Hydralazine HCl 10 mg PO TID 10/26/18 Isosorbide DN [Isordil] 5 mg PO TID 10/26/18 Metoprolol Succinate 100 mg PO BID 10/26/18 Potassium Chloride [K-Tab ER] 40 meq PO QDAY 10/26/18 Clonazepam [Klonopin] 0.5 mg PO Q12H #28 tablet 10/27/18 Ferrous Sulfate 325 mg PO 1200,1700 #60 tab 10/27/18 Sertraline HCl [Zoloft] 50 mg PO DAILY #30 tab 10/27/18 The following prescriptions were given: Ferrous Sulfate 325 mg PO 1200,1700 #60 tab Transmission Status: Pending to [id number] Clonazepam [Klonopin] 0.5 mg PO Q12H #28 tablet Transmission Status: Received by [facility][id number] Sertraline HCl [Zoloft] 50 mg PO DAILY #30 tab Transmission Status: Pending to [id number] Primary Care Physician: Dustin Salomon MD [Primary Care Provider] - Keep [facility] appointment Please follow up with your Primary Care Physician in: Within one week Test Results: Test results from this visit will be discussed in further detail at your follow-up appointment, if applicable. Please Follow Up With: Manpreet Miles NP-C - [facility] When: 1-2 Weeks Please Follow Up With: [facility] When: Call to schedule outpatient counseling [phone] Proposed Discharge Date: 10/27/18
--- NOTE | 2018-10-27 11:11 | DS.PCM_ITS ---
Discharge Date and Diagnosis Date of Admission: 10/26/18 Date of Discharge: 10/27/18 - Primary Discharge Diagnosis Active and Suspected Problems (Last Reviewed 10/26/18 @ 01:42 by Cnostantin Angeles MD) 1. Akathisia, suspect multifactorial secondary to underlying anxiety/panic disorder, iron deficiency, CKD stage IV and severe cardiomyopathy 2. Iron deficiency, macrocytic anemia 3. Paroxysmal atrial fibrillation 4. LISA 5. Hypertension 6. Non-CAD related cardiomyopathy/chronic systolic CHF/ventricular dysrhythmias- status post ICD placement. 7. Chronic kidney disease stage IV - Secondary Discharge Diagnosis Chronic Problems (Last Reviewed 10/26/18 @ 01:42 by Constantin Angeles MD) long-term (current) use of anticoagulants (Chronic) Chronic systolic (congestive) heart failure (Chronic) Paroxysmal atrial fibrillation (Chronic) Left ventricular apical thrombus (Chronic) Pure hypercholesterolemia (Chronic) Premature ventricular contraction (Chronic) Nonsustained ventricular tachycardia (Chronic) Wide-complex tachycardia (Chronic) History of implantable cardioverter-defibrillator (ICD) placement (Chronic ~12/2012) Nonischemic cardiomyopathy (Chronic) Dilated cardiomyopathy (Chronic) Hospital Course and Treatment Imaging Results: Diagnostic Data Chest X-Ray 10/25/18 22:06 IMPRESSION: No acute pulmonary findings. Electronically Signed: Ravi Chau MD at 22:31 EDT Tel , Service support , Dr. Owusu- Neurology Operations: None Procedures: None Summary of Care Provided: The patient is a 78 year old M admitted 10/26/2018 due to restlessness. 1. Akathisia, suspect multifactorial secondary to underlying anxiety/panic disorder, iron deficiency, CKD stage IV and severe cardiomyopathy-feel the largest contributing factor is underlying anxiety. Family reports patient has had panic attacks that have been untreated for some time now. Started on Zoloft 50 mg daily and Klonopin 0.5 mg twice daily. Recommend outpatient follow-up with counseling. Referred to [facility] in [place]. Family and patient in agreement. Recommend titrating Zoloft as outpatient to reach desired effect and then can taper and discontinue Klonopin when symptoms are better controlled. Patient symptoms have improved currently. Discharge home with further outpatient follow-up. Follow-up with primary care provider within 1 week. 2. Iron deficiency, macrocytic anemia-IV Venofer x2. Ferrous sulfate 325 mg twice daily. 3. Paroxysmal atrial fibrillation-rate controlled. On amiodarone, digoxin and Coumadin. Digoxin level normal. INR therapeutic. 4. LISA-continue CPAP regimen. 5. Hypertension-stable, continue home hydralazine, isosorbide, metoprolol regimen. 6. Non-CAD related cardiomyopathy/chronic systolic CHF/ventricular dysrhythmias- status post ICD placement. Follows with Dr. Allen. Echocardiogram July 2018 with EF 20%. Continue statin, metoprolol, isosorbide, torsemide regimen. 7. Chronic kidney disease stage IV-at baseline. General: Alert, Oriented x3, Cooperative HEENT: Atraumatic, PERRLA, EOMI, Normocephalic Neck: Supple, No JVD, Negative Carotid Bruits Lungs: Clear to auscultation, Normal air movement Cardiovascular: Regular rate, No murmurs Abdomen: Bowel Sounds Present, Soft, Non Tender Extremities: No clubbing, No cyanosis, No edema, Capillary Refill Less than 3 Seconds Skin: No rashes, No breakdown Musculoskeletal: No Tenderness to Palpation of Joints or Extremities Neurological: Cranial nerves II-XII grossly intact, Neuro grossly intact Psych/Mental Status: Anxious Patient seen and examined prior to discharge. Physical assessment as noted above. Patient is stable for discharge with follow up recommendations as noted above. This patient was seen by SAGE Buchanan under the supervision of Dr. Sarah. - Physical Exam Vital Signs Temp Pulse Resp BP Pulse Ox 98.3 F 60 18 108/72 97 10/27/18 08:16 10/27/18 08:16 10/27/18 08:16 10/27/18 08:16 10/27/18 08:16 Oxygen Flow Rate (L/min) 1 Oxygen Delivery Method Nasal Cannula Weight: 178 lb 3 oz Body Mass Index (BMI) 24.1 Intake and Output for Last 24 Hours 10/25/18 10/26/18 10/27/18 23:59 23:59 23:59 Intake Total 410 / 660 370 / 370 Output Total 275 / 275 Balance 410 / 385 95 / 95 Laboratory Tests Past 24 Hrs 10/26/18 10/26/18 10/27/18 11:53 11:53 05:25 WBC 5.8 RBC 3.56 L Hgb 11.6 L Hct 35.6 L MCV 100.0 H MCH 32.6 H MCHC 32.6 RDW Std Deviation 49.5 H RDW Coeff of Bebo 13.4 Plt Count 118 L MPV 10.2 Sodium Potassium Chloride Carbon Dioxide Anion Gap BUN Creatinine Estim Creat Clear Calc Est GFR (MDRD) Af Amer Est GFR (MDRD) Non-Af BUN/Creatinine Ratio Glucose Calcium Phosphorus 3.0 Magnesium 2.9 H Iron 32 L 35 L TIBC 312 341 Iron Saturation 10.3 L 10.3 L Ferritin 313 318 Total Bilirubin 1.70 H Direct Bilirubin 0.39 H AST 20 ALT 36 Alkaline Phosphatase 58 Total Protein 7.4 Albumin 3.6 Globulin 3.8 10/27/18 05:25 WBC RBC Hgb Hct MCV MCH MCHC RDW Std Deviation RDW Coeff of Bebo Plt Count MPV Sodium 140 Potassium 4.3 Chloride 108 H Carbon Dioxide 24.0 Anion Gap 8 BUN 37 H Creatinine 2.63 H Estim Creat Clear Calc 25.82 Est GFR (MDRD) Af Amer 31 L Est GFR (MDRD) Non-Af 25 L BUN/Creatinine Ratio 14.1 Glucose 95 Calcium 8.2 L Phosphorus Magnesium Iron TIBC Iron Saturation Ferritin Total Bilirubin Direct Bilirubin AST ALT Alkaline Phosphatase Total Protein Albumin Globulin Discharge Diet: Low fat/ Low Cholesterol Discharge Activity: Return to Normal Activity Call your doctor if you observe: Shortness of breath, Dizziness, Fainting spells, Chest pain Home Medications: Medications to take at Discharge cod liver oil capsule 3 cap PO QDAY cap 07/28/17 multivitamin tablet 1 tab PO QDAY 07/28/17 atorvastatin 40 mg tablet 40 mg PO QHS 06/29/18 torsemide 20 mg tablet 20 mg PO DAILY 06/29/18 warfarin 2.5 mg tablet 2.5 mg PO DAILY 06/29/18 Amiodarone HCl 200 mg PO DAILY 10/26/18 Digoxin 125 mcg PO QDAY 10/26/18 Hydralazine HCl 10 mg PO TID 10/26/18 Isosorbide DN [Isordil] 5 mg PO TID 10/26/18 Metoprolol Succinate 100 mg PO BID 10/26/18 Potassium Chloride [K-Tab ER] 40 meq PO QDAY 10/26/18 Clonazepam [Klonopin] 0.5 mg PO Q12H #28 tablet 10/27/18 Ferrous Sulfate 325 mg PO 1200,1700 #60 tab 10/27/18 Sertraline HCl [Zoloft] 50 mg PO DAILY #30 tab 10/27/18 Following Prescrptions Were Given to Patient: Ferrous Sulfate 325 mg PO 1200,1700 #60 tab Transmission Status: Pending to [facility]/pharmacy #[id number] Clonazepam [Klonopin] 0.5 mg PO Q12H #28 tablet Transmission Status: Received by [facility]/pharmacy #[id number] Sertraline HCl [Zoloft] 50 mg PO DAILY #30 tab Transmission Status: [id number] Primary Care Physician: Dustin Salomon MD [Primary Care Provider] - Keep [facility] appointment Please follow up with your Primary Care Physician in: Within one week Please Follow Up With: Manpreet Miles NP-C - [facility] When: 1-2 Weeks Please Follow Up With: [facility] When: Call to schedule outpatient counseling [phone] Patient Instructions: Anxiety Reaction Disposition: Home Minutes spent on discharge:: 35 Patient Condition:: Stable Meaningful Use Info Meaningful Use Diagnoses (Choose all that apply): None applicable
[2018-10-27 11:23] VITALS: PULSE 60
[2018-10-27] MEDS: Sertraline 50 MG Tablet PO (11:23)
[2018-10-27] MEDS: Amiodarone 200 MG Tablet PO (11:23)
[2018-10-27] MEDS: Ferrous Sulfate 325 MG Tablet PO (11:23)
[2018-10-27] MEDS: Furosemide 40 MG Tablet PO (11:23)
[2018-10-27] MEDS: Digoxin 125 MCG Tablet PO (11:23)
[2018-10-27] MEDS: Metoprolol(XL)Succ 100 MG Tablet PO (11:23)
[2018-10-27 13:02] VITALS: BP 116/70; PULSE 60; RESP 18; TEMP 36.5; O2SAT 94
== END 2018-10-27 13:42 | disposition home or self-care (01) ==
LOC: ED 10-26 00:21 → MS3 10-26 01:06
PROVIDERS: Emergency Medicine; Nurse Practitioner Family; Psychiatry & Neurology Neurology; Admitting Provider Hospitalist; Emergency Provider Emergency Medicine; Family Provider Internal Medicine; PCP Internal Medicine; Visit Provider Internal Medicine
DX: G25.71 Drug induced akathisia (principal); E78.00 Pure hypercholesterolemia, unspecified; F41.0 Panic disorder [episodic paroxysmal anxiety]; I42.0 Dilated cardiomyopathy; I48.0 Paroxysmal atrial fibrillation; I50.22 Chronic systolic (congestive) heart failure; Z79.01 Long term (current) use of anticoagulants; Z95.810 Presence of automatic (implantable) cardiac defibrillator; D50.9 Iron deficiency anemia, unspecified; N18.3 Chronic kidney disease, stage 3 (moderate); G47.33 Obstructive sleep apnea (adult) (pediatric); Z87.891 Personal history of nicotine dependence
CPT/HCPCS: 36415; 71045; 80048; 80076; 80162; 82728; 83540; 83550; 83735; 84100; 84439; 84443; 84480; 84484; 85025; 85027; 85610; 93005; 99285; J1756; J7040; A4216

== ENCOUNTER 2018-11-20 10:37 | Inpatient (IN) | payer MEDICARE, SELFPAY ==
[2018-11-02 09:06] VITALS: BMI 24.8
[2018-11-20] VITALS (10 sets, daily range): BP systolic 121–133; BP diastolic 81–89; PULSE 57–68; RESP 16–19; TEMP 36.2–36.8; O2SAT 96–100; BMI 24.8; BMI 24.5
--- NOTE | 2018-11-20 11:02 | EKG12_ITS ---
Test Reason : WEAKNESS Blood Pressure : / mmHG Vent. Rate : 061 BPM Atrial Rate : 061 BPM P-R Int : 218 ms QRS Dur : 212 ms QT Int : 520 ms P-R-T Axes : 000 129 101 degrees QTc Int : 523 ms AV dual-paced rhythm with prolonged AV conduction Biventricular pacemaker detected Abnormal ECG Confirmed by TASHIA HUERTAS, RORY ([id number]), manuscript editor BIRGIT HONEYCUTT ([id number]) on 11/23/2018 11:52:56 AM Referred By: MARY ANNE Confirmed By:YUE LAO MD
--- NOTE | 2018-11-20 11:04 | RAD_ITS ---
STUDY: X-RAY CHEST REASON FOR EXAM: Male, 78 years old. Chest pain TECHNIQUE: AP portable upright chest COMPARISON: 10/25/2017 FINDINGS: Left pectoral AICD device, stable. Myocardium Egli. Normal mediastinal silhouette, jeffrey and pleural margins. Pulmonary hyperlucency consistent with COPD. Lungs otherwise clear. No acute osseous or upper abdominal process. RAD/Chest 1 View (Portable) IMPRESSION: No acute cardiopulmonary process. Electronically Signed: Pascual Coulter MD at 12:04 EDT Tel , Service support ,
[2018-11-20 11:25] LABS: Absolute Lymphocyte Count 0.68 X10^3/uL (0.83-4.51); Absolute Neutrophil Count 7.1 X10^3/uL (2.0-7.7); Basophil# 0.01 X10^3/uL; Basophil% 0.1 % (0-1); Hematocrit 41.7 % (40-54); Hemoglobin 14.3 g/dL (13.0-16.5); Lymphocyte # 0.68 X10^3/ul (4.0); Lymphocyte % 7.5 % (19-41); Mean Corp Hgb Conc 34.3 g/dL (32-36); Mean Corpuscular Hgb 32.8 pg (27.0-32.0); Mean Corpuscular Volume 95.6 fL (80-94); Mean Platelet Vol. 10.3 fl (6.2-12.0); Monocyte# 1.33 X10^3/uL; Monocyte% 14.6 % (0-10); NRBC Flagged by Analyzer 0.2 % (0-5); Neutrophil # 7.05 X10^3/uL (2.7-7.7); Neutrophil % 77.3 % (47-70); Platelet Count 138 K/mm3 (150-450); RBC Distribution Width CV 14.2 % (11.6-14.6); RBC Distribution Width SD 49.4 fl (35.1-43.9); Red Blood Count 4.36 M/mm3 (4.6-6.2); White Blood Count 9.1 K/mm3 (4.4-11.0)
[2018-11-20 11:31] LABS: Prothrombin Time (Protime)PT. 53.4 SECONDS (11.7-14.9)
[2018-11-20 11:34] LABS: International Normalized Ratio 5.9
[2018-11-20 11:46] LABS: Anion Gap 11 (5-15); BUN 39 mg/dL (7-18); BUN/Creat Ratio 10.2 RATIO (10-20); Calcium,Total 9.2 mg/dL (8.5-10.1); Chloride 94 mmol/L (98-107); Creatinine, Serum 3.81 mg/dL (0.70-1.30); EST Glomerular Filtration Rate 16 mL/min (>60); Est Glom Filt Rate - Afr Amer 20 mL/min (>60); Estimated Creatinine Clearance 17.82 ml/min; Glucose 135 mg/dL (74-106); Potassium 4.9 mmol/L (3.5-5.1); Sodium Level 125 mmol/L (136-145); Thyroid Stim Hormone (TSH) 8.91 uIU/mL (0.358-3.74)
[2018-11-20 11:59] LABS: BNP,B-Type NATRIURETIC PEPTIDE > 5000.0 pg/mL (0-100)
--- NOTE | 2018-11-20 12:11 | ED.DCSUM_ITS ---
- ER Visit Summary Date of Service: 11/20/18 Chief Complaint: Heart problems History of Present Illness: The patient is a 78 M who presents for a week of weakness, nausea, diarrhea. He also reports anxiety and a weight gain of 10 pounds. He was recently admitted to the hospital. Please refer to the previous note. He was scheduled for an outpatient echocardiogram next week. He was also started on clonazepam twice a day for anxiety. This worked when he was in the hospital, but now his symptoms are progressing. He is awaiting follow-up with psychiatry. Patient has a history of CHF, hyperlipidemia, atrial fibrillation, implanted defibrillator, cardiomyopathy. He does take Coumadin. Denies any bleeding. Physical Examination: Afebrile and vital signs unremarkable. Skin is normal except for some possible cyanosis to his lips. Heart is regular. Lungs are clear. Abdomen is soft. Extremities nontender. Test Results: EKG showed a paced rhythm at a rate of 61. Platelets 138, sodium 125, glucose 135, BUN 39, creatinine 3.81. INR 5.9. Troponin normal. BNP greater than 5000. TSH 8.91. Digoxin level pending. Chest x-ray unremarkable. Emergency Department Course and Treatment: Patient was placed on a monitor. His symptoms include generalized weakness, nausea, and diarrhea. He has multiple cardiac issues. Work-up above indicated an elevated BNP as well as hyponatremia and an elevated creatinine. EKG was paced which makes interpretation difficult, but I do not see anything acute. Chest x-ray also showed nothing acute. With the patient's multiple medical issues, he will need inpatient care. I contacted the hospitalist. Treatment Plan: As above Disposition: Admission Impression: 1. CHF 2. CKD 3. Hyponatremia 4. Supratherapeutic INR This note was generated with 120 [employer] software. It may contain incorrect words, spelling, and punctuation that were not noted in review of the chart prior to signing ED Disposition - Plan for ED Patient: Referrals: Dustin Salomon MD [Primary Care Provider] -
[2018-11-20 12:14] LABS: Digoxin Level 1.73 ng/mL (0.80-2.00)
[2018-11-20] MEDS: Furosemide 40 MG/4 ML Vial IV ×2 (12:23→17:26)
--- NOTE | 2018-11-20 12:40 | HP.PCM_ITS ---
History of Present Illness Date of Admission: 11/20/18 Chief Complaint: shortness of breath, weight gain The patient is a 78 year old M with an extensive past medical history as listed. He was admitted through the ED on 11/20/2018 with complaint of shortness of breath which had been going on for several days. He also progressively felt weak and had noticed a 10 pound weight gain over the past week. Patient claims compliance with his diuretics. He denied any chest pain but admitted to orthopnea and PND. He denied any lower extremity swelling and states that whenever he has an exacerbation of his CHF he does not have any swelling in his lower extremities. Patient states he had a third wire added to his pacemaker leads a few months ago. On admission in the ED, vitals were significant for mild bradycardia of 57 subsequently resolved. CBC was unremarkable but BMP showed sodium of 125 and bicarb of 20 as well as creatinine of 3.81 (baseline of ~ 2.7). Initial troponin was negative and BNP was more than 5000. TSH was 8.91. INR was 5.9 and chest x-ray showed no acute cardiopulmonary process. He has been admitted to be managed for acute on chronic heart failure with reduced ejection fraction as well as hyponatremia and supratherapeutic INR. [] Past Medical History Past Medical History (Chronic Problems): Chronic Problems (Last Reviewed 10/26/18 @ 01:42 by Constantin Angeles MD) [facility] (current) use of anticoagulants (Chronic) Chronic systolic (congestive) heart failure (Chronic) Paroxysmal atrial fibrillation (Chronic) Left ventricular apical thrombus (Chronic) Pure hypercholesterolemia (Chronic) Premature ventricular contraction (Chronic) Nonsustained ventricular tachycardia (Chronic) Wide-complex tachycardia (Chronic) History of implantable cardioverter-defibrillator (ICD) placement (Chronic ~12/2012) Nonischemic cardiomyopathy (Chronic) Dilated cardiomyopathy (Chronic) Medical History: Medical History (Last Reviewed 10/26/18 @ 01:42 by Constantin Angeles MD) [facility] (current) use of anticoagulants (Chronic) Z79.01 Chronic systolic (congestive) heart failure (Chronic) I50.22 Paroxysmal atrial fibrillation (Chronic) I48.0 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 Pure hypercholesterolemia (Chronic) E78.00 Dyspnea on exertion (Inactive) R06.09 Premature ventricular contraction (Chronic) I49.3 Nonsustained ventricular tachycardia (Chronic) I47.2 Wide-complex tachycardia (Chronic) I47.2 Nonischemic cardiomyopathy (Chronic) I42.8 Dilated cardiomyopathy (Chronic) I42.0 History of GI bleed Z87.19 LISA (obstructive sleep apnea) G47.33 Degenerative joint disease M19.90 Allergies Penicillins Allergy (Verified 11/20/18 10:38) Hives Sulfa (Sulfonamide Antibiotics) Allergy (Verified 11/20/18 10:38) Hives MILKA Inhibitors Adverse Reaction (Severe, Verified 11/20/18 10:38) cough Home Medications: Ambulatory Orders Medication Instructions Recorded cod liver oil capsule 3 cap PO QDAY cap 07/28/17 multivitamin tablet 1 tab PO QDAY 07/28/17 atorvastatin 40 mg tablet 40 mg PO QHS 06/29/18 torsemide 20 mg tablet 20 mg PO DAILY 06/29/18 warfarin 2.5 mg tablet 2.5 mg PO DAILY 06/29/18 Amiodarone HCl 200 mg PO DAILY 10/26/18 Digoxin 125 mcg PO QDAY 10/26/18 Hydralazine HCl 10 mg PO TID 10/26/18 Isosorbide DN [Isordil] 5 mg PO TID 10/26/18 Metoprolol Succinate 100 mg PO BID 10/26/18 Potassium Chloride [K-Tab ER] 40 meq PO QDAY 10/26/18 Clonazepam [Klonopin] 0.5 mg PO Q12H #28 tab 10/27/18 Ferrous Sulfate 325 mg PO 1200,1700 #60 tab 10/27/18 Sertraline HCl [Zoloft] 50 mg PO DAILY #30 tab 10/27/18 pantoprazole 40 mg tablet,delayed 40 mg PO DAILY 11/18/18 release Ropinirole HCl [Requip] 0.25 mg PO QHS 11/20/18 Surgical History: Surgical History (Last Reviewed 10/26/18 @ 11:23 by Sebastián Owusu MD) History of implantable cardioverter-defibrillator (ICD) placement (Chronic) Onset Date: ~12/2012 Z95.810 History of hip surgery Z98.890 Hx of appendectomy Z90.49 Lives: With Family Smoking Status: Former smoker Tobacco Use: Non-smoker Alcohol: None Drugs: None - *Family History Maternal Family History: Family History (Last Reviewed 10/26/18 @ 11:23 by Sebastián Owusu MD) Grandmother CHF (congestive heart failure) Grandfather CHF (congestive heart failure) Father CHF (congestive heart failure) Review of Systems Constitutional: Reports: Malaise, Weakness, Fatigue. Denies: Chills, Fever, Weight Change Eyes: Denies: Blurred vision HEENT: Denies: Head Aches, Sinus Congestion, Sinus Drainage Cardiovascular: Reports: Orthopnea, Paroxysmal Noc. Dyspnea. Denies: Chest Pain, Chest Pressure, Chest Tightness, Edema, Heaviness, Light Headedness, Palpitations, Syncope Respiratory: Reports: Shortness of Breath, Shortness of breath at rest, Shortness of breath upon exertion. Denies: Cough, Sputum production, Wheezing Gastrointestinal: Denies: Abdominal Pain, Nausea, Vomiting Genitourinary: Denies: Dysuria Musculoskeletal: Denies: Joint Pain, Joint Tenderness Skin: Denies: Rash, Wounds Neurological: Reports: - - restless legs. Denies: Focal weakness, Numbness, Tingling Psychiatric: Denies: Anxiety, Depression, Homicidal Ideations, Suicidal Ideations Hematologic/ Lymphatic: Denies: Easy Bruising, Easy Bleeding VTE Information - Inpt Only VTE Present on Admission: No VTE Pharm Prophylaxis ordered?: No Reason prophylaxis not ordered:: Medical Contraindication - supratherapeutic INR - Physical Exam General: Alert, Oriented x3, Cooperative, No apparent distress, Lethargic HEENT: Atraumatic, PERRLA, EOMI, Normocephalic Oral: Dry Mucosa Neck: Supple, No JVD, Negative Carotid Bruits Lungs: Clear to auscultation, Normal air movement Cardiovascular: Regular rate, Regular Rhythm, Normal S1, Normal S2, No murmurs, - - pacemaker in place Abdomen: Bowel Sounds Present, Soft, Non Tender, Non-Distended, No Hepato-spleno megaly Extremities: No clubbing, No cyanosis, No edema, Capillary Refill Less than 3 Seconds Skin: No rashes, No breakdown Musculoskeletal: No Tenderness to Palpation of Joints or Extremities Lymphatic: No Cervical, Supraclavicular, or Inguinal Adenopathy Neurological: Cranial nerves II-XII grossly intact, Neuro grossly intact, Motor Exam 5/5 strength throughout Psych/Mental Status: Normal Affect, Appropriate, Alert and oriented to time, place, person, mood and affect Vital Signs Temp Pulse Resp BP Pulse Ox 97.2 F L 68 16 128/89 H 98 11/20/18 10:39 11/20/18 12:07 11/20/18 12:07 11/20/18 12:07 11/20/18 12:07 Oxygen Delivery Method Room Air Weight: 183 lb Body Mass Index (BMI) 24.8 Laboratory Tests Past 24 Hrs 11/20/18 11/20/18 11/20/18 11:15 11:15 11:15 WBC 9.1 RBC 4.36 L Hgb 14.3 Hct 41.7 MCV 95.6 H MCH 32.8 H MCHC 34.3 RDW Std Deviation 49.4 H RDW Coeff of Bebo 14.2 Plt Count 138 L MPV 10.3 Immature Gran % (Auto) 0.500 Neut % (Auto) 77.3 H Lymph % (Auto) 7.5 L Larue % (Auto) 14.6 H Eos % (Auto) 0.0 Baso % (Auto) 0.1 Absolute Neuts (auto) 7.1 Absolute Lymphs (auto) 0.68 L Nucleated RBC % 0.2 PT 53.4 H INR 5.9 H* Sodium 125 L Potassium 4.9 Chloride 94 L Carbon Dioxide 20.0 L Anion Gap 11 BUN 39 H Creatinine 3.81 H Estim Creat Clear Calc 17.82 Est GFR (MDRD) Af Amer 20 L Est GFR (MDRD) Non-Af 16 L BUN/Creatinine Ratio 10.2 Glucose 135 H Calcium 9.2 Troponin I < 0.015 B-Natriuretic Peptide TSH 8.91 H Digoxin 11/20/18 11/20/18 11:15 11:15 WBC RBC Hgb Hct MCV MCH MCHC RDW Std Deviation RDW Coeff of Bebo Plt Count MPV Immature Gran % (Auto) Neut % (Auto) Lymph % (Auto) Larue % (Auto) Eos % (Auto) Baso % (Auto) Absolute Neuts (auto) Absolute Lymphs (auto) Nucleated RBC % PT INR Sodium Potassium Chloride Carbon Dioxide Anion Gap BUN Creatinine Estim Creat Clear Calc Est GFR (MDRD) Af Amer Est GFR (MDRD) Non-Af BUN/Creatinine Ratio Glucose Calcium Troponin I B-Natriuretic Peptide > 5000.0 H TSH Digoxin 1.73 Diagnostic Data Chest X-Ray 11/20/18 11:04 IMPRESSION: No acute cardiopulmonary process. Electronically Signed: Pascual Coulter MD at 12:04 EDT Tel , Service support , Assessment/Plan All Active Problems (Last Reviewed 10/26/18 @ 01:42 by Constantin Angeles MD) Anxiety (Acute) Akathisia (Acute) 78 y/o male admitted with a complaint of SOB and weight gain 1. Acute on chronic HFrEF * admit to PCU with telemetry * BNP was >5000 * sodium was 125, likely due to CHF exacerbation * last echo(07/08/18): mildly dilated LV with EF of 20% and severe LV systolic dysfunction, false apical tendon. Left atrium severely enlarged. RVSP of 53mmhg. ICD/pacer leads identified in RV and RA/ * initial troponin is negative, will cycle * EKG showed a paced rhythm, and no acute ST changes * start on IV lasix 40mg bid. * monitor input output chart * fluid restriction to 1500cc daily. * 2. Hyponatremia * Sodium is 125. This is likely a hypervolemic hypotonic hyponatremia due to CHF exacerbation. * Improved with IV diuresis. * 3. CRUZ on CKD 3 * Creatinine is 2.81 with a baseline of around 2.7. This is likely due to acute heart failure. * Will monitor with diuresis. * Of course there is a chance that creatinine will trend up further with aggressive diuresis. * Will consider nephro consult if creatinine does not trend up. * 4. Hypo-thyroidism: * TSH is 8.91. It was 9.8 in 10/25/18 . * Not on any thyroid replacement medication. Considering his age, and the fact that he is in amiodarone which can interfere with thyroid function, will defer to PCP on outpatient basis about starting Synthroid or otherwise. * 5. Supratherapeutic INR: * INR is 5.9. Hold Coumadin for now. * No evidence of bleeding so we will hold off on giving any vitamin K. * 6. History of ischemic dilated cardiomyopathy s/p defibrillator placement * has a history of VTach as well * on imdur, metoprolol and amiodarone as well as dgoxin * digoxin level is WNL * 7. History of paroxysmal Afib * on amiodarone and metoprolol * INR is 5.9; will hold coumadin for now. * no evidence of bleeding. will recheck INR * 8. History of LV apical thrombus: on coumadin; coumadin held as under 5. 9. LISA: stable. CPAP qhs 10. Akathisia and restless leg syndrome: * recently diagnosed. * says he was started on clonazepam; this has however made him feel terrible * will dc. start requip * DVT prophylaxis: none, due to supratherapeutic INR CODE STATUS: Full code * Patient counseled extensively about different types of CODE STATUS including full code, DNR CCA and DNR CCA. Patient elects to be full code. Total [id number] time 16 minutes. Code Visit Inpatient E&M: 18876 Init Hosp L3 Procedures: 33223 Advncd Care Plan 30 Min
--- NOTE | 2018-11-20 12:58 | NURSING ---
110 [facility] CHF EXAC
[2018-11-20] MEDS: Isosorbide DN 10 MG Tablet 5 MG PO ×2 (14:45→21:56)
[2018-11-20] MEDS: Ferrous Sulfate 325 MG Tablet PO (14:45)
[2018-11-20] MEDS: hydrALAZINE 10 MG Tablet PO ×2 (14:46→21:57)
[2018-11-20] MEDS: clonazePAM 0.5 MG Tablet PO (15:36)
[2018-11-20] MEDS: 0.9% NaCl Peripheral Flush Adult/Peds IV (17:26)
[2018-11-20] MEDS: MELATONIN 3 MG TABLET PO (21:54)
[2018-11-20] MEDS: Atorvastatin Calcium 40 MG Tablet PO (21:57)
[2018-11-20] MEDS: Pramipexole Di-HCl 0.125 MG Tablet PO (21:57)
[2018-11-20] MEDS: Metoprolol(XL)Succ 100 MG Tablet PO (21:57)
[2018-11-21] VITALS (14 sets, daily range): BP systolic 115–142; BP diastolic 73–95; PULSE 60–68; RESP 24–35; TEMP 36.2–36.4; O2SAT 91–99
--- NOTE | 2018-11-21 03:03 | EKG12_ITS ---
Test Reason : DYSRHYTHMIA Blood Pressure : / mmHG Vent. Rate : 060 BPM Atrial Rate : 060 BPM P-R Int : 224 ms QRS Dur : 244 ms QT Int : 582 ms P-R-T Axes : 000 221 101 degrees QTc Int : 582 ms AV dual-paced rhythm with prolonged AV conduction Biventricular pacemaker detected Abnormal ECG When compared with ECG of 20-NOV-2018 11:17, MANUAL COMPARISON REQUIRED, DATA IS UNCONFIRMED Confirmed by MOSHE HUERTAS, SARA ([id number]), supervising film or videotape editor BIRGIT HONEYCUTT ([id number]) on 11/23/2018 12:23:10 PM Referred By: MANPREET Confirmed By:SARA MESA MD
[2018-11-21] MEDS: Furosemide 40 MG/4 ML Vial IV (03:15)
[2018-11-21] MEDS: 0.9% NaCl Peripheral Flush Adult/Peds IV ×5 (03:15→11:47)
[2018-11-21 03:46] LABS: Bedside Glucose 110 mg/dL (70-110)
[2018-11-21 03:46] LABS: Allen Test POS; Base Excess -11 mmol/L (-2 to +2); Bicarbonate 13.7 mmol/L (22-26); Blood Gas Specimen Type ART; O2 Delivery Device Nasal Can; PO2 77 mmHG (75-100); SITE L Brachial; SO2 96 % (95-99); Time Given 325; Total Carbon Dioxide 14 mmol/L; pCO2 21.3 mmHg (35-45); pH 7.41 (7.35-7.45)
[2018-11-21 03:52] LABS: Absolute Lymphocyte Count 0.75 X10^3/uL (0.83-4.51); Basophil# 0.03 X10^3/uL; Basophil% 0.2 % (0-1); Eosinophil# 0.15 X10^3/uL; Eosinophils% 1.2 % (0-5); Hematocrit 46.7 % (40-54); Hemoglobin 15.8 g/dL (13.0-16.5); Lymphocyte # 0.75 X10^3/ul (4.0); Lymphocyte % 5.8 % (19-41); Mean Corp Hgb Conc 33.8 g/dL (32-36); Mean Corpuscular Hgb 32.6 pg (27.0-32.0); Mean Corpuscular Volume 96.5 fL (80-94); Mean Platelet Vol. 11.2 fl (6.2-12.0); Monocyte# 1.02 X10^3/uL; Monocyte% 7.8 % (0-10); NRBC Flagged by Analyzer 0 % (0-5); Neutrophil # 10.99 X10^3/uL (2.7-7.7); Neutrophil % 84.2 % (47-70); Platelet Count 132 K/mm3 (150-450); RBC Distribution Width CV 14.4 % (11.6-14.6); RBC Distribution Width SD 50.7 fl (35.1-43.9); Red Blood Count 4.84 M/mm3 (4.6-6.2)
[2018-11-21] MEDS: clonazePAM 0.5 MG Tablet PO (03:52)
[2018-11-21 03:54] LABS: Anion Gap 19 (5-15); BUN 46 mg/dL (7-18); BUN/Creat Ratio 10.8 RATIO (10-20); Calcium,Total 9.3 mg/dL (8.5-10.1); Chloride 91 mmol/L (98-107); Creatinine, Serum 4.24 mg/dL (0.70-1.30); EST Glomerular Filtration Rate 15 mL/min (>60); Est Glom Filt Rate - Afr Amer 18 mL/min (>60); Estimated Creatinine Clearance 16.01 ml/min; Glucose 92 mg/dL (74-106); Potassium 5.8 mmol/L (3.5-5.1); Sodium Level 126 mmol/L (136-145)
[2018-11-21 04:10] LABS: Prothrombin Time (Protime)PT. 74.6 SECONDS (11.7-14.9)
[2018-11-21 04:20] LABS: International Normalized Ratio 8.9
[2018-11-21] MEDS: Sodium Polystyrene Sulfonate 15 GM/60 ML UDC 30 GM PO (04:27)
--- NOTE | 2018-11-21 04:35 | NURSING ---
PATIENT COMPLAINING OF BEING NAUSEOUS SO TOOK OFF OF CPAP MACHINE AT THIS TIME.
--- NOTE | 2018-11-21 06:40 | CCHN_ITS ---
Hospitalist Note Called per RN as patient had been diaphoretic, not feeling well, anxious, obtained EKG which was similar to prior, obtained trop which was within normal range, obtained early AM labs with noted CBC w/ WBC 13 with L shift, INR further elevated 8.9, ABG obtained as increased RR with evidence mild hyperventilation likely with patient normally on klonopin with mild hypoxia noted and discussed that patient normally on q HS CPAP which was initiated, BMP w/ Na 126, K 5.8, BUN/Cr 46/4.24, worsened function from prior. Obtained UFe/Cr, renal US, requested consultation with his [employer]is[employer] Dr. Saleh, also administered vitamin K as well as kayexelate with planned repeat BMP and INR.
[2018-11-21] MEDS: Ondansetron 4 MG/2 ML Vial IV (07:03)
[2018-11-21 07:54] LABS: Urine Sodium 6 mmol/L (Not Establ.)
[2018-11-21 07:57] LABS: AST(SGOT) 1790 U/L (15-37); Alanine Aminotransfer ALT/SGPT 1914 U/L (16-61); Albumin, Serum 3.8 g/dL (3.2-5.0); Alkaline Phosphatase 82 U/L (45-117); Globulin 3.7 g/dL (2.2-4.2); Protein, Total 7.5 g/dL (6.4-8.2)
[2018-11-21] MEDS: Furosemide 500 MG in Empty Viaflex 50 mL 1 EACH CONT INF (07:58)
[2018-11-21] MEDS: Digoxin 125 MCG Tablet PO (08:07)
[2018-11-21] MEDS: Pantoprazole Sodium 40 MG Tablet PO (08:07)
[2018-11-21] MEDS: Amiodarone 200 MG Tablet PO (08:07)
[2018-11-21] MEDS: Metoprolol(XL)Succ 100 MG Tablet PO (08:08)
[2018-11-21] MEDS: Sertraline 50 MG Tablet PO (08:08)
[2018-11-21] MEDS: Ferrous Sulfate 325 MG Tablet PO (08:08)
[2018-11-21] MEDS: Isosorbide DN 10 MG Tablet 5 MG PO (08:09)
[2018-11-21] MEDS: hydrALAZINE 10 MG Tablet PO (08:09)
--- NOTE | 2018-11-21 10:02 | PN_ITS ---
Subjective: Patient seen and examined. He complains of having a rough night. He still remains short of breath. He denies any chest pain or palpitation, dizziness or swelling in his lower extremities. Review of systems otherwise negative. Labs and vitals reviewed. Patient's urine output has been very poor and he only made about 425 mils overnight. His weight is actually gone up about 3 pounds since admission. His creatinine was also noted to have trended up to 4.24 and potassium went up to 5.8. He received sodium Kayexalate and nephrology has been consulted. His sodium only went up to 126 from 125 on admission. Vitals/I&O's: Vital Signs Temp Pulse Resp BP Pulse Ox 97.6 F L 60 24 H 122/73 H 95 11/21/18 07:51 11/21/18 08:09 11/21/18 07:51 11/21/18 07:51 11/21/18 07:51 Oxygen Flow Rate (L/min) 93 Oxygen Delivery Method Room Air Weight: 183 lb 13.848 oz Body Mass Index (BMI) 24.5 Intake and Output for Last 24 Hours 11/19/18 11/20/18 11/21/18 23:59 23:59 23:59 Intake Total 560 / 560 51 / 51 Output Total 425 / 425 50 / 50 Balance 135 / 135 General: Alert, Oriented x3, Cooperative, No apparent distress, anxious HEENT: Atraumatic, PERRLA, EOMI, Normocephalic Oral: Dry Mucosa Neck: Supple, No JVD, Negative Carotid Bruits Lungs: Clear to auscultation, Normal air movement Cardiovascular: Regular rate, Regular Rhythm, Normal S1, Normal S2, No murmurs, - - pacemaker in place Abdomen: Bowel Sounds Present, Soft, Non Tender, Non-Distended, No Hepato- splenomegaly Extremities: No clubbing, No cyanosis, No edema, Capillary Refill Less than 3 Seconds Skin: No rashes, No breakdown Musculoskeletal: No Tenderness to Palpation of Joints or Extremities Lymphatic: No Cervical, Supraclavicular, or Inguinal Adenopathy Neurological: Cranial nerves II-XII grossly intact, Neuro grossly intact, Motor Exam 5/5 strength throughout Psych/Mental Status: Normal Affect, Appropriate, Alert and oriented to time, place, person, mood and affect Laboratory Results 11/20/18 11:15: WBC 9.1, RBC 4.36 L, Hgb 14.3, Hct 41.7, MCV 95.6 H, MCH 32.8 H, MCHC 34.3, RDW Std Deviation 49.4 H, RDW Coeff of Bebo 14.2, Plt Count 138 L, MPV 10.3, Immature Gran % (Auto) 0.500, Neut % (Auto) 77.3 H, Lymph % (Auto) 7.5 L, Rice % (Auto) 14.6 H, Eos % (Auto) 0.0, Baso % (Auto) 0.1, Absolute Neuts (auto) 7.1, Absolute Lymphs (auto) 0.68 L, Nucleated RBC % 0.2 11/20/18 11:15: PT 53.4 H, INR 5.9 H* 11/20/18 11:15: Sodium 125 L, Potassium 4.9, Chloride 94 L, Carbon Dioxide 20.0 L, Anion Gap 11, BUN 39 H, Creatinine 3.81 H, Estim Creat Clear Calc 17.82, Est GFR (MDRD) Af Amer 20 L, Est GFR (MDRD) Non-Af 16 L, BUN/Creatinine Ratio 10.2, Glucose 135 H, Calcium 9.2, Troponin I < 0.015, TSH 8.91 H 11/20/18 11:15: Digoxin 1.73 11/20/18 11:15: B-Natriuretic Peptide > 5000.0 H 11/21/18 02:57: POC Glucose 110 11/21/18 03:22: WBC 13.0 H, RBC 4.84, Hgb 15.8, Hct 46.7, MCV 96.5 H, MCH 32.6 H , MCHC 33.8, RDW Std Deviation 50.7 H, RDW Coeff of Bebo 14.4, Plt Count 132 L, MPV 11.2, Immature Gran % (Auto) 0.800, Neut % (Auto) 84.2 H, Lymph % (Auto) 5.8 L, Rice % (Auto) 7.8, Eos % (Auto) 1.2, Baso % (Auto) 0.2, Absolute Neuts (auto) 11.0 H, Absolute Lymphs (auto) 0.75 L, Nucleated RBC % 0 11/21/18 03:22: PT 74.6 H, INR 8.9 H* 11/21/18 03:22: Sodium 126 L, Potassium 5.8 H, Chloride 91 L, Carbon Dioxide 16.0 L, Anion Gap 19 H, BUN 46 H, Creatinine 4.24 H, Estim Creat Clear Calc 16.01, Est GFR (MDRD) Af Amer 18 L, Est GFR (MDRD) Non-Af 15 L, BUN/Creatinine Ratio 10.8, Glucose 92, Calcium 9.3 11/21/18 03:22: Troponin I 0.035 11/21/18 03:35: Specimen Type ART, Sample Site L Brachial, pH 7.41, Bicarbonate Actual 13.7 L, POC Total CO2 14, Base Excess -11 L, O2 Saturation 96, ABG pCO2 21.3 L, ABG pO2 77, Rao Test POS, O2 Delivery Device Nasal Can, Liter Flow 2.0, Blood Gas Notified Whom JIMBO HUERTAS, Blood Gas Notified Time 325 11/21/18 06:04: Troponin I 0.051 H 11/21/18 06:04: Total Bilirubin 3.20 H, Direct Bilirubin 1.00 H, AST 1790 H, ALT 1914 H, Alkaline Phosphatase 82, Total Protein 7.5, Albumin 3.8, Globulin 3.7 11/21/18 07:00: Urine Creatinine 146.00 11/21/18 07:00: Ur Random Sodium 6 11/21/18 09:40: Troponin I Pending 11/21/18 09:40: Sodium Pending, Potassium Pending, Chloride Pending, Carbon Dioxide Pending, Anion Gap Pending, BUN Pending, Creatinine Pending, Est GFR (MDRD) Af Amer Pending, Est GFR (MDRD) Non-Af Pending, BUN/Creatinine Ratio Pending, Glucose Pending, Calcium Pending Diagnostic Data Chest X-Ray 11/20/18 11:04 IMPRESSION: No acute cardiopulmonary process. Electronically Signed: Pascual Coulter MD at 12:04 EDT Tel , Service support , Current Medications Albuterol Sulfate (Ventolin Aerosols) 2.5 mg INHALATION Q2H PRN PRN PRN Reason: dyspnea, wheezing Amiodarone HCl (Cordarone) 200 mg PO DAILY [facility] Last Admin: 11/21/18 08:07 Dose: 200 mg Documented by: Atorvastatin Calcium (Lipitor) 40 mg PO QHS [facility] Last Admin: 11/20/18 21:57 Dose: 40 mg Documented by: Clonazepam (Klonopin) 0.5 mg PO Q12H PRN PRN PRN Reason: ANXIETY Last Admin: 11/21/18 03:52 Dose: 0.5 mg Documented by: Dextrose (D50w Syringe) 0 gm IV X1 PRN; Protocol PRN Reason: Hypoglycemia Digoxin (Lanoxin) 125 mcg PO DAILY [facility] Last Admin: 11/21/18 08:07 Dose: 125 mcg Documented by: Ferrous Sulfate (Ferrous Sulfate) 325 mg PO 1200,1700 [facility] Last Admin: 11/21/18 08:08 Dose: 325 mg Documented by: Glucagon () 1 mg IM .X1 PRN PRN Reason: Hypoglycemia Hydralazine HCl (Apresoline) 10 mg PO TID [facility] Last Admin: 11/21/18 08:09 Dose: 10 mg Documented by: Furosemide 500 mg/ N/A 50 mls @ 1 mls/hr CONT INF .Q50H [facility] Last Admin: 11/21/18 07:58 Dose: 10 mg/hr, 1 mls/hr Documented by: Isosorbide Dinitrate (Isordil) 5 mg PO TID [facility] Last Admin: 11/21/18 08:09 Dose: 5 mg Documented by: Melatonin (Melatonin) 3 mg PO QHS [facility] Last Admin: 11/20/18 21:54 Dose: 3 mg Documented by: Metoprolol Succinate (Toprol Xl (Beta Primo)) 100 mg PO BID [facility] Last Admin: 11/21/18 08:08 Dose: 100 mg Documented by: Multivitamins (Multivitamin) 1 tablet PO DAILY@0800 [facility] Last Admin: 11/21/18 08:07 Dose: Not Given Documented by: Ondansetron HCl (Zofran) 4 mg IV Q8H PRN PRN PRN Reason: NAUSEA/VOMITING Last Admin: 11/21/18 07:03 Dose: 4 mg Documented by: Pantoprazole Sodium (Protonix) 40 mg PO DAILY [facility] Last Admin: 11/21/18 08:07 Dose: 40 mg Documented by: Pramipexole Dihydrochloride (Mirapex) 0.125 mg PO QHS [facility] Last Admin: 11/20/18 21:57 Dose: 0.125 mg Documented by: Sertraline HCl (Zoloft) 50 mg PO DAILY [facility] Last Admin: 11/21/18 08:08 Dose: 50 mg Documented by: Sodium Chloride () 10 - 40 ml IV UD PRN PRN Reason: SALINE FLUSH Last Admin: 11/21/18 07:58 Dose: 10 ml Documented by: Medical Necessity - Tobacco Use Smoking Status: Former smoker Tobacco Use: Non-smoker Assessment/Plan All Active Problems (Last Reviewed 10/26/18 @ 01:42 by Constantin Angeles MD) Anxiety (Acute) Akathisia (Acute) 78 y/o male admitted with a complaint of SOB and weight gain 1. Acute on chronic HFrEF * BNP was >5000 on admission * still remains SOB, had CPAP overnight. Usually wears CPAP at night * very poor urine output; made only ~ 400cc of urine overnight * last echo(07/08/18): mildly dilated LV with EF of 20% and severe LV systolic dysfunction, false apical tendon. Left atrium severely enlarged. RVSP of 53mmhg. ICD/pacer leads identified in RV and RA/ * troponins x 3 were negative * Cr trended up to 4.24 today. * will dc IV lasix and start on lasix drip * monitor input output chart * fluid restriction to 1500cc daily. * nephrology and cardiology consulted * 2. Hyponatremia * Sodium is up to 126 today, from 125 on admission. This is likely a hypervolemic hypotonic hyponatremia due to CHF exacerbation. * will monitor with IV diuresis * 3. CRUZ on CKD 3 * Creatinine is up to 4.24 today, from 3.81 on admission. * nephrology consulted; IV lasix switched to lasix drip. * will await nephro rec's * renal USG ordered. * 4. Hypo-thyroidism: * TSH is 8.91. It was 9.8 in 10/25/18 . * Not on any thyroid replacement medication. Considering his age, and the fact that he is in amiodarone which can interfere with thyroid function, will defer to PCP on outpatient basis about starting Synthroid or otherwise. * 5. Supratherapeutic INR: * INR is 5.9. Hold Coumadin for now. * No evidence of bleeding so we will hold off on giving any vitamin K. * 6. History of ischemic dilated cardiomyopathy s/p defibrillator placement * has a history of VTach as well * on imdur, metoprolol and amiodarone as well as dgoxin * digoxin level is WNL * 7. History of paroxysmal Afib * on amiodarone and metoprolol * INR is 5.9; will hold coumadin for now. * no evidence of bleeding. will recheck INR * 8. History of LV apical thrombus: on coumadin; coumadin held as under 5. 9. LISA: stable. CPAP qhs 10. Akathisia and restless leg syndrome: * recently diagnosed. * says he was started on clonazepam; this has however made him feel terrible * will dc. start requip * DVT prophylaxis: none, due to supratherapeutic INR
[2018-11-21 10:17] LABS: Anion Gap 21 (5-15); BUN 50 mg/dL (7-18); BUN/Creat Ratio 10.4 RATIO (10-20); Calcium,Total 9.1 mg/dL (8.5-10.1); Chloride 89 mmol/L (98-107); Creatinine, Serum 4.81 mg/dL (0.70-1.30); EST Glomerular Filtration Rate 13 mL/min (>60); Est Glom Filt Rate - Afr Amer 15 mL/min (>60); Estimated Creatinine Clearance 14.12 ml/min; Glucose 71 mg/dL (74-106); Potassium 5.4 mmol/L (3.5-5.1); Sodium Level 125 mmol/L (136-145)
[2018-11-21] MEDS: Lidocaine Jelly 2% 20 ML Syringe (URO-JET) 20 APPLIC TOPICAL (10:32)
--- NOTE | 2018-11-21 11:35 | NURSING ---
report called to Alysa BURKETT at [facility]
[2018-11-21] MEDS: DOBUTamine 500mg PM 500 MG/250 ML IV.SOLN. 6.3 MG CONT INF (11:42)
[2018-11-21] MEDS: Furosemide 100 MG/10 ML Vial 80 MG IV (11:47)
--- NOTE | 2018-11-21 12:06 | PCM.PN.BLA ---
Progress Note Chart reviewed. CRUZ on CKD stage 4 with hepatic failure of unclear etiology, supratherapeutic INR. Anuric on lasix drip. Discussed management with Dr. Molina this morning. Plan transfer to tertiary care center at [facility] for further care. Consult not seen due to transfer. Will follow up at [facility].
--- NOTE | 2018-11-21 14:35 | DS.PCM_ITS ---
Discharge Date and Diagnosis Date of Admission: 11/20/18 Date of Discharge: 11/21/18 - Primary Discharge Diagnosis acute on chronic heart failure with reduced EF CRUZ on CKD 3 anion gap metabolic acidosis supratherapeutic INR elevated liver enzymes - Secondary Discharge Diagnosis Chronic Problems (Last Reviewed 10/26/18 @ 01:42 by Constantin Angeles MD) assisted (current) use of anticoagulants (Chronic) Chronic systolic (congestive) heart failure (Chronic) Paroxysmal atrial fibrillation (Chronic) Left ventricular apical thrombus (Chronic) Pure hypercholesterolemia (Chronic) Premature ventricular contraction (Chronic) Nonsustained ventricular tachycardia (Chronic) Wide-complex tachycardia (Chronic) History of implantable cardioverter-defibrillator (ICD) placement (Chronic ~12/2012) Nonischemic cardiomyopathy (Chronic) Dilated cardiomyopathy (Chronic) Hospital Course and Treatment Imaging Results: Diagnostic Data Chest X-Ray 11/20/18 11:04 IMPRESSION: No acute cardiopulmonary process. Electronically Signed: Pascual Coulter MD at 12:04 EDT Tel , Service support , cardiology- Dr Vila nephrololgy- Dr Saleh Operations: None Procedures: None Summary of Care Provided: The patient is a 78 year old M with an extensive past medical history as listed. He was admitted through the ED on 11/20/2018 with complaint of shortness of breath which had been going on for several days. He also progressively felt weak and had noticed a 10 pound weight gain over the past week. Patient claims compliance with his diuretics. He denied any chest pain but admitted to orthopnea and PND. He denied any lower extremity swelling and states that whenever he has an exacerbation of his CHF he does not have any swelling in his lower extremities. Patient states he had a third wire added to his pacemaker leads a few months ago. On admission in the ED, vitals were significant for mild bradycardia of 57 subsequently resolved. CBC was unremarkable but BMP showed sodium of 125 and bicarb of 20 as well as creatinine of 3.81 (baseline of ~ 2.7). Initial troponin was negative and BNP was more than 5000. TSH was 8.91. INR was 5.9 and chest x-ray showed no acute cardiopulmonary process. He was admitted to be managed for acute on chronic heart failure with reduced ejection fraction as well as hyponatremia and supratherapeutic INR. Patient was started on diuresis with IV Lasix. However, patient's urine output was minimal. By the next day 11/21/2018, patient's creatinine trended up to 4.81. INR also went up to 8.9. Liver enzymes were deranged, with AST and ALT markedly elevated (1790 and 1914 respectively), and total bilirubin was 3.2. Patient's bicarb dropped further and he developed anion gap acidosis with bicarb being 15 and anion gap 21 which was thought to be due to uremia from CRUZ on CKD. Patient was given a dose of IV vitamin K 10 mg overnight and nephrology was consulted. Cardiology was also consulted and renal ultrasound was ordered. Serum sodium was only 126 and patient was also hyperkalemic with potassium going up to 5.8. Patient however remained hemodynamically stable with blood pressure being in the 130 systolic. Considering patient's worsening kidney function and liver function, decision was made to transfer patient to a tertiary care facility. All his symptoms were thought to be due to his severe heart failure and likely reduced EF. Decision to transfer was to [facility]i with nephrology and cardiology were all on board. Patient seen and examined prior to transfer. He said he had a rough night because he had a panic attack. He still remained short of breath. Review of systems otherwise negative. Labs and vitals reviewed. o/e: Vital Signs Height 6 ft Weight: 183 lb 13.848 oz Weight in Pounds 183.9 lbs Pulse Ox 91 Temperature 97.6 F Pulse Rate 68 Respiratory Rate 30 Blood Pressure 117/95 Blood Pressure Position Semi-Fowlers General: Alert, Oriented x3, Cooperative, No apparent distress, anxious HEENT: Atraumatic, PERRLA, EOMI, Normocephalic Oral: Dry Mucosa Neck: Supple, No JVD, Negative Carotid Bruits Lungs: Clear to auscultation, Normal air movement Cardiovascular: Regular rate, Regular Rhythm, Normal S1, Normal S2, No murmurs, - - pacemaker in place Abdomen: Bowel Sounds Present, Soft, Non Tender, Non-Distended, No Hepato- splenomegaly Extremities: No clubbing, No cyanosis, No edema, Capillary Refill Less than 3 Seconds Skin: No rashes, No breakdown Musculoskeletal: No Tenderness to Palpation of Joints or Extremities Lymphatic: No Cervical, Supraclavicular, or Inguinal Adenopathy Neurological: Cranial nerves II-XII grossly intact, Neuro grossly intact, Motor Exam 5/5 strength throughout Psych/Mental Status: Normal Affect, Appropriate, Alert and oriented to time, place, person, mood and affect Patient was transferred to [facility] heart and lung unit on 11/21/2018. Accepting physician is Dr. Kim. - Physical Exam Vital Signs Temp Pulse Resp BP Pulse Ox 97.6 F L 68 30 H 117/95 H 91 11/21/18 07:51 11/21/18 12:00 11/21/18 12:00 11/21/18 12:00 11/21/18 12:00 Oxygen Flow Rate (L/min) 93 Oxygen Delivery Method Room Air Weight: 183 lb 13.848 oz Body Mass Index (BMI) 24.5 Intake and Output for Last 24 Hours 11/19/18 11/20/18 11/21/18 23:59 23:59 23:59 Intake Total 560 / 560 300.52 / 300.52 Output Total 425 / 425 150 / 150 Balance 135 / 135 150.52 / 150.52 Laboratory Tests Past 24 Hrs 11/21/18 11/21/18 11/21/18 03:22 03:22 03:22 WBC 13.0 H RBC 4.84 Hgb 15.8 Hct 46.7 MCV 96.5 H MCH 32.6 H MCHC 33.8 RDW Std Deviation 50.7 H RDW Coeff of Bebo 14.4 Plt Count 132 L MPV 11.2 Immature Gran % (Auto) 0.800 Neut % (Auto) 84.2 H Lymph % (Auto) 5.8 L Trinity % (Auto) 7.8 Eos % (Auto) 1.2 Baso % (Auto) 0.2 Absolute Neuts (auto) 11.0 H Absolute Lymphs (auto) 0.75 L Nucleated RBC % 0 PT 74.6 H INR 8.9 H* Specimen Type Sample Site pH Bicarbonate Actual POC Total CO2 Base Excess O2 Saturation ABG pCO2 ABG pO2 Rao Test O2 Delivery Device Liter Flow Blood Gas Notified Whom Blood Gas Notified Time Sodium 126 L Potassium 5.8 H Chloride 91 L Carbon Dioxide 16.0 L Anion Gap 19 H BUN 46 H Creatinine 4.24 H Estim Creat Clear Calc 16.01 Est GFR (MDRD) Af Amer 18 L Est GFR (MDRD) Non-Af 15 L BUN/Creatinine Ratio 10.8 Glucose 92 Calcium 9.3 Total Bilirubin Direct Bilirubin AST ALT Alkaline Phosphatase Troponin I Total Protein Albumin Globulin Ur Random Sodium Urine Creatinine 11/21/18 11/21/18 11/21/18 03:22 03:35 06:04 WBC RBC Hgb Hct MCV MCH MCHC RDW Std Deviation RDW Coeff of Bebo Plt Count MPV Immature Gran % (Auto) Neut % (Auto) Lymph % (Auto) Trinity % (Auto) Eos % (Auto) Baso % (Auto) Absolute Neuts (auto) Absolute Lymphs (auto) Nucleated RBC % PT INR Specimen Type ART Sample Site L Brachial pH 7.41 Bicarbonate Actual 13.7 L POC Total CO2 14 Base Excess -11 L O2 Saturation 96 ABG pCO2 21.3 L ABG pO2 77 Rao Test POS O2 Delivery Device Nasal Can Liter Flow 2.0 Blood Gas Notified Whom [facility] MD Blood Gas Notified Time 325 Sodium Potassium Chloride Carbon Dioxide Anion Gap BUN Creatinine Estim Creat Clear Calc Est GFR (MDRD) Af Amer Est GFR (MDRD) Non-Af BUN/Creatinine Ratio Glucose Calcium Total Bilirubin Direct Bilirubin AST ALT Alkaline Phosphatase Troponin I 0.035 0.051 H Total Protein Albumin Globulin Ur Random Sodium Urine Creatinine 11/21/18 11/21/18 11/21/18 06:04 07:00 07:00 WBC RBC Hgb Hct MCV MCH MCHC RDW Std Deviation RDW Coeff of Bebo Plt Count MPV Immature Gran % (Auto) Neut % (Auto) Lymph % (Auto) Trinity % (Auto) Eos % (Auto) Baso % (Auto) Absolute Neuts (auto) Absolute Lymphs (auto) Nucleated RBC % PT INR Specimen Type Sample Site pH Bicarbonate Actual POC Total CO2 Base Excess O2 Saturation ABG pCO2 ABG pO2 Rao Test O2 Delivery Device Liter Flow Blood Gas Notified Whom Blood Gas Notified Time Sodium Potassium Chloride Carbon Dioxide Anion Gap BUN Creatinine Estim Creat Clear Calc Est GFR (MDRD) Af Amer Est GFR (MDRD) Non-Af BUN/Creatinine Ratio Glucose Calcium Total Bilirubin 3.20 H Direct Bilirubin 1.00 H AST 1790 H ALT 1914 H Alkaline Phosphatase 82 Troponin I Total Protein 7.5 Albumin 3.8 Globulin 3.7 Ur Random Sodium 6 Urine Creatinine 146.00 11/21/18 11/21/18 09:40 09:40 WBC RBC Hgb Hct MCV MCH MCHC RDW Std Deviation RDW Coeff of Bebo Plt Count MPV Immature Gran % (Auto) Neut % (Auto) Lymph % (Auto) Trinity % (Auto) Eos % (Auto) Baso % (Auto) Absolute Neuts (auto) Absolute Lymphs (auto) Nucleated RBC % PT INR Specimen Type Sample Site pH Bicarbonate Actual POC Total CO2 Base Excess O2 Saturation ABG pCO2 ABG pO2 Rao Test O2 Delivery Device Liter Flow Blood Gas Notified Whom Blood Gas Notified Time Sodium 125 L Potassium 5.4 H Chloride 89 L Carbon Dioxide 15.0 L Anion Gap 21 H BUN 50 H Creatinine 4.81 H Estim Creat Clear Calc 14.12 Est GFR (MDRD) Af Amer 15 L Est GFR (MDRD) Non-Af 13 L BUN/Creatinine Ratio 10.4 Glucose 71 L Calcium 9.1 Total Bilirubin Direct Bilirubin AST ALT Alkaline Phosphatase Troponin I 0.069 H Total Protein Albumin Globulin Ur Random Sodium Urine Creatinine POC Glucose 11/21/18 02:57 POC Glucose 110 Discharge Diet: Low fat/ Low Cholesterol Home Medications: Medications to take at Discharge cod liver oil capsule 3 cap PO QDAY cap 07/28/17 multivitamin tablet 1 tab PO QDAY 07/28/17 atorvastatin 40 mg tablet 40 mg PO QHS 06/29/18 torsemide 20 mg tablet 20 mg PO DAILY 06/29/18 warfarin 2.5 mg tablet 2.5 mg PO DAILY 06/29/18 Amiodarone HCl 200 mg PO DAILY 10/26/18 Digoxin 125 mcg PO QDAY 10/26/18 Hydralazine HCl 10 mg PO TID 10/26/18 Isosorbide DN [Isordil] 5 mg PO TID 10/26/18 Metoprolol Succinate 100 mg PO BID 10/26/18 Potassium Chloride [K-Tab ER] 40 meq PO QDAY 10/26/18 Clonazepam [Klonopin] 0.5 mg PO Q12H #28 tab 10/27/18 Ferrous Sulfate 325 mg PO 1200,1700 #60 tab 10/27/18 Sertraline HCl [Zoloft] 50 mg PO DAILY #30 tab 10/27/18 pantoprazole 40 mg tablet,delayed release 40 mg PO DAILY 11/18/18 Ropinirole HCl [Requip] 0.25 mg PO QHS 11/20/18 Primary Care Physician: Dustin Salomon MD [Primary Care Provider] - Disposition: Acute care Hospital [facility] Heart and Lung Unit Minutes spent on discharge:: 50 Patient Condition:: Fair Medical Necessity - Tobacco Use Smoking Status: Former smoker Tobacco Use: Non-smoker Meaningful Use Info Meaningful Use Diagnoses (Choose all that apply): CHF - CHF MILKA/ARB ordered at discharge?: No Reason MILKA/ARB not ordered?: Worsening renal disease, Hyperkalemia Documented LVEF (%): 20 Code Visit Inpatient E&M: 54553 Disch Hosp
== END 2018-11-21 12:30 | disposition short-term general hospital (02) | DRG 292 ==
LOC: ED 11:39 → PCU 12:31
PROVIDERS: Family Medicine; Admitting Provider Student in an Organized Health Care Education/Training Program; Emergency Provider Emergency Medicine; Family Provider Internal Medicine; PCP Internal Medicine; Visit Provider Student in an Organized Health Care Education/Training Program
DX: I50.23 Acute on chronic systolic (congestive) heart failure (principal); N17.9 Acute kidney failure, unspecified; N18.4 Chronic kidney disease, stage 4 (severe); E87.2 Acidosis; I42.0 Dilated cardiomyopathy; E87.1 Hypo-osmolality and hyponatremia; R74.8 Abnormal levels of other serum enzymes; Z79.01 Long term (current) use of anticoagulants; I48.0 Paroxysmal atrial fibrillation; E78.00 Pure hypercholesterolemia, unspecified; Z95.810 Presence of automatic (implantable) cardiac defibrillator; G47.33 Obstructive sleep apnea (adult) (pediatric); Z79.899 Other long term (current) drug therapy; Z87.891 Personal history of nicotine dependence; E03.9 Hypothyroidism, unspecified; G25.81 Restless legs syndrome; G25.71 Drug induced akathisia; K72.90 Hepatic failure, unspecified without coma; E87.5 Hyperkalemia
CPT/HCPCS: 36415; 36600; 71045; 80048; 80076; 80162; 82570; 82803; 82962; 83880; 84300; 84443; 84484; 85025; 85610; 93005; 94660; 97162; 97166; 99285; A4216; J1940; J2405; J3490

== ENCOUNTER 2018-12-03 09:47 | Outpatient (RCR) | payer MEDICARE, SELFPAY ==
[2018-11-02 09:06] VITALS: BMI 24.8
[2018-11-20 12:48] VITALS: BMI 24.5
[2018-12-03 11:14] LABS: International Normalized Ratio 2.7; Prothrombin Time (Protime)PT. 28.7 SECONDS (11.7-14.9)
== END 2018-12-03 11:00 | disposition home or self-care (01) ==
LOC: LAB 09:47
PROVIDERS: Family Provider Internal Medicine; PCP Internal Medicine; Referring Provider Internal Medicine Cardiovascular Disease; Visit Provider Internal Medicine Cardiovascular Disease
DX: I50.22 Chronic systolic (congestive) heart failure (principal); I48.0 Paroxysmal atrial fibrillation; I51.3 Intracardiac thrombosis, not elsewhere classified
CPT/HCPCS: 36415; 85610

== ENCOUNTER → 2018-12-10 | Outpatient (CLI) | payer MEDICARE, SELFPAY ==
[2018-11-20 12:48] VITALS: BMI 24.5
[2018-12-10 15:32] LABS: Anion Gap 8 (5-15); BUN 32 mg/dL (7-18); BUN/Creat Ratio 14.2 RATIO (10-20); Calcium,Total 8.7 mg/dL (8.5-10.1); Chloride 96 mmol/L (98-107); Creatinine, Serum 2.26 mg/dL (0.70-1.30); EST Glomerular Filtration Rate 30 mL/min (>60); Est Glom Filt Rate - Afr Amer 36 mL/min (>60); Glucose 106 mg/dL (74-106); Potassium 3.2 mmol/L (3.5-5.1); Sodium Level 138 mmol/L (136-145)
== END | disposition home or self-care (01) ==
LOC: LAB 13:45
PROVIDERS: Family Provider Internal Medicine; PCP Internal Medicine; Referring Provider Internal Medicine Nephrology; Visit Provider Internal Medicine Nephrology
DX: N17.9 Acute kidney failure, unspecified (principal)
CPT/HCPCS: 36415; 80048

== ENCOUNTER → 2018-12-23 | Outpatient (CLI) | payer MEDICARE, SELFPAY ==
[2018-11-20 12:48] VITALS: BMI 24.5
--- NOTE | 2018-12-23 09:39 | PCM.CR.ITP ---
General Information - General Information Admitting Diagnosis: DILATED CARDIOMYOPATHY, CHF W/LEVEF <30% Special Needs: WILL BE FOLLOWING UP CARE WITH DR. BEA OROZCO - Education/Goals Barriers to Learning: Hearing Impairment Individual Counseling: Initial Assessment: Abnormal Cholesterol Levels, High Blood Pressure Cardiac Rehabilitation Goals: 1. Maintain the individual as the primary focus of care. 2. To improve the patient's quality of life. 3. Identification of cardiac risk factors and provide cardiac risk factor management. 4. Enhance the psychosocial status of the patient. 5. Reconditioning enough to allow the patient to resume customary activities. 6. Control symptoms of cardiac disease Scale for measuring improvement of personal goals: Enter appropriate number in Comments. 2 = Unchanged. 3 = Slightly Better. 4 = Moderate Improvement. 5 = Met my Goal Exercise - Initial Assessment - Visit Date of Eval: 12/23/18 Session #:: 0 - START CR ON 12/27/2018; WILL RESUME HIS CR IN [place] AT LATER DATE. - Stages of Change Stages of Change:: Action - Physician Prescribed Exercise Modalities: Treadmill, Airdyne, NuStep Frequency (days/week): 3x/week for 12 weeks [36 sessions] Duration (Minutes):: 30-45 Intensity: 60-80% age predicted maximum heart rate reserve METs - Progression: 0.5-1.0 MET, RPE 11-14 WEEK: 3 Target Heart Rate:: 93-121 ECHO LVEF 20% - Hypertension Do any of the following apply?: Yes, Medication - Intervention Home Exercise/Activity Goal:: Moderate Exercise 30 min/day x 5 days/wk - Education Goals:: Warm-up, RPE MOMO Scale, S/S, Safe Exercise, Self-Monitoring - Exercise Program Goals Exercise Program Goals: Aerobic Activity >30 min Nutrition - Initial Assessment - Program Goals Nutrition Program Goals: LDL <70. Total Cholesterol <200. HDL >45. Triglycerides <150. HgbA1C <7%. BMI <25 - Visit Date of Assessment:: 12/23/18 - Stages of Change Stages of Change:: Action - Lipids Total Cholesterol (mg/dL) Goal = less than 200 mg/dL: 0 - LIPID PROFILE NOT AVAILABLE - Diabetes Diabetes:: No Insulin: No Non-Insulin Dependent?: No Do you monitor your blood sugar at home?: No - Weight Management Height: 6 ft Weight:: 174 lb 4.8 oz Body Fat %:: 23.63 - Intervention Referral to dietitian:: No Referral to Diabetic Clinic:: No Will attend diet classes:: Yes - Education Gave educational materials for:: Healthy eating Tobacco - Initial Assessment - Program Goals Tobacco Program Goals: Complete smoking cessation. Attend education classes. Improve Knowledge Test score - Stage of Change Stages of Change:: Action - Learning Barriers Learning Barriers: Hearing, Ready to Learn - Family Support Do you have family support?: Yes - Tobacco Use Tobacco Use: Non-smoker Do you use smokeless tobacco?: No - Intervention Smoking Cessation Referral:: No Individual Education/Counseling:: No Education Schedule Given:: Yes - Education Attended class for:: Treating Heart Disease, How The Heart Works, What it means to have Heart Disease, How Coronary Artery Disease is Diagnosed, Heart Procedures, What Heart Medications Do, Risk Factors & Modifications, Living an Active Life, Nutrition, Emotions & Heart Disease, Stress Management & Relaxation, Sleep Disorders & Heart Disease Psychosocial - Initial Assess - Target Goals Target Goals: Assess presence or absence of depression. Using a valid screening tool, maximizes coping skills. Positive support system - Stages of Change Stages of Change:: Action - Psychosocial Test Tool Used:: HANDS Depression Questionnaire - Intervention PS - Interventions: Yes Attend Stress Management Classes, No Referral to Mental Health, No Referral to [facility] Case Management, No Referral to Physician, No Uses Stress Management Skills - Education Gave educational materials for:: Coping techniques, Signs & symptoms of depression, Stress management, Relaxation techniques - Patient/Program Goal Preventative Medication(s):: Aspirin, MILKA inhibitor, Clopidogrel, Beta chapito, Statin/lipid - Assistive Devices Assistive Devices:: None Fall Risk Assessed:: Yes Patient Health Questionnaire Initial Assessment 1. Little interest or pleasure in doing things: Not at all 2. Feeling down, depressed, or hopeless: Not at all 3. Trouble falling or staying asleep, or sleeping too much: Not at all 4. Feeling tired or having little energy: Several days 5. Poor appetite or overeating: Not at all 6. Feeling bad about yourself -- or that you are a failure or have let yourself or your family down: Not at all 7. Trouble concentrating on things, such as reading the newspaper or watching television: Not at all 8. Moving or speaking so slowly that other people could have noticed. Or the opposite - being so fidgety or restless that you have been moving around a lot more than usual: Not at all 9. Thoughts that you would be better off , or of hurting yourself in some way: Not at all Total Score: 1 LISA-Q SV Test - Statements CAD is a disease of the arteries in the heart: False Examples of risk factors for heart disease: True Angina is chest pain or discomfort: True The benefits of resistance training include: True Eating more meat and dairy products: False Anti-platelet medications such as aspirin are important: I Don't Know The only effective way to manage stress: I Don't Know An exercise warm-up slowly increases heart rate: True Prepared, processed foods usually have high sodium: True Depression is common after a heart attack: True The statin medications lower cholesterol: I Don't Know To control blood pressure, lower the amount of sodium: True If someone gets chest discomfort during walking: False Transfats are partially hydrogenated vegetable oils: I Don't Know Sleep apnea that is not treated increases the risk: False To control cholesterol, one should become a vegetarian: I Don't Know Someone knows if he/she is exercising at the right level: I Don't Know Diabetes cannot be prevented with exercise & health eating: True Stress is a large risk for heart attack: True A diet that can help lower blood pressure is rich in: True - Total Score Total Correct Responses: 13 Self-Efficacy Initial Assessment We would like to know how confident you are in doing certain activities. Please select your confidence level for:: Select your confidence level for the following using the scale 1-10 where 1 is not at all confident and 10 is totally confident. Your score is the average of all 6 responses. Fatigue: How confident are you that you can keep the fatigue caused by your disease from interfering with the things you want to do? Select Number: 9 Physical Discomfort or Pain: How confident are you that you can keep the physical discomfort or pain of your disease from interfering with the things you want to do? Select Number: 9 Emotional Distress: How confident are you that you can keep the emotional distress caused by your disease from interfering with the things you want to do? Select Number: 9 Other Symptoms or Health Problems: How confident are you that you can keep other symptoms or health problems from interfering with the things you want to do? Select Number: 10 Different Tasks and Activities: How confident are you that you can do the different tasks and activities needed to manage your health condition so as to reduce your need to see a doctor? Select Number: 10 Medication: How confident are you that you can do things other than just taking medication to reduce how much your illness affects your everyday life? Select Number: 10 Total Score:: 9 Nutrition Survey - Nutrition Survey Instructions Scoring Instructions: Scoring is as follows: Yes = 1 points. No = 0 point. Patient score that is >/=12 is considered to be at potential nutritional risk and could benefit from a referral to a registered dietitian. - Nutrition Survey Initial Have you lost >10 lbs over the past 2 months without trying?: Yes Are you following a special diet at home for diabetes, low fat, or low salt?: Yes Are you interested in meeting with a dietitian for help understanding your diet?: No Do you eat less than 3 meals a day?: No Do you eat fatty meats (sinclair, sausage, ribs, etc), fried foods, desserts, large amounts of salad dressings, margarine, butter, or cheese most days?: Yes Do you have food allergies? [Enter types in comment field]: No Do you eat in restaurants more than 3 times a week?: No Do you season food with salt, seasoning salt, or garlic salt?: No Do you used canned, boxed, frozen meals, or soups, seasoning packets?: No Total Score:: 3
--- NOTE | 2018-12-23 09:42 | PCM.CR.HP2 ---
<Ace Jones - Last Filed: 12/23/18 09:42> CR - History & Physical - General Arrival date:: 12/23/18 Arrival time:: 09:43 Date of Referral:: 12/16/18 Date of CR Evaluation:: 12/23/18 Referring Physician: Dr. Reynold Abebe Primary Diagnosis: CHF - History of Present Cardiac Event Onset Date: Enter Onset Date of cardiac illnesses in Comment field below Current stable Angina Pectoris:: No Acute Myocardial Infarction within 12 months:: No Coronary Artery Bypass Graft:: No Heart valve replacement or repair:: No PTCA or coronary stenting:: No Heart or Heart-Lung Transplant:: No Heart Failure EF <35%:: Yes - 20% Type of Symptoms:: SOB, anxiety, restless leg syndrome Interventions with present event:: Med management at [facility] Were there any complications?: no complications he can remember, was in hospital 7 days. - Medications Home Medications: Ambulatory Orders Medication Instructions Recorded cod liver oil capsule 3 cap PO QDAY cap 07/28/17 multivitamin tablet 1 tab PO QDAY 07/28/17 torsemide 20 mg tablet 20 mg PO DAILY 06/29/18 warfarin 2.5 mg tablet 2.5 mg PO DAILY 06/29/18 Amiodarone HCl 100 mg PO DAILY 10/26/18 Hydralazine HCl 100 mg PO TID 10/26/18 Isosorbide DN [Isordil] 40 mg PO TID 10/26/18 Potassium Chloride [K-Tab ER] 20 meq PO QDAY 10/26/18 Clonazepam [Klonopin] 0.5 mg PO Q12H #28 tab 10/27/18 Sertraline HCl [Zoloft] 50 mg PO DAILY #30 tab 10/27/18 pantoprazole 40 mg tablet,delayed 40 mg PO DAILY PRN 11/18/18 release Ropinirole HCl [Requip] 0.5 mg PO BID 11/20/18 Carvedilol [Coreg] 3.125 mg PO BID 12/23/18 Melatonin/Pyridoxine HCl (B6) 1 ea PO QHS 12/23/18 [Melatonin 3 mg Tablet] - Allergies Allergies/Adverse Reactions: Allergies Penicillins Allergy (Verified 11/20/18 10:38) Hives Sulfa (Sulfonamide Antibiotics) Allergy (Verified 11/20/18 10:38) Hives MILKA Inhibitors Adverse Reaction (Severe, Verified 11/20/18 10:38) cough Dcxywas-Ygd-Ifz Reductase Inhibitor Adverse Reaction (Verified 12/23/18 10:08) Other - Sleep Disorder Evaluation Hx of Sleep Apnea: Yes Do you snore loudly (louder than talking or can be heard through closed doors)?: Yes Do you often feel tired/ fatigued/ sleepy during daytime?: Yes Has anyone observed you stop breathing during sleep?: Yes History of Hypertension (for STOP score): No - on cpap STOP Results: Positive Advanced Directives - Advanced Directives Power of Shotblast Operator: No Living Will: No Advance Directives Information Provided: Yes Advance Directives on File: No DNR Order?:: No Past Medical History - Past Medical Illness Medical History: Past Medical History (Last Reviewed 10/26/18 @ 01:42 by Constantin Angeles MD) [facility] (current) use of anticoagulants (Chronic) Z79.01 Chronic systolic (congestive) heart failure (Chronic) I50.22 Paroxysmal atrial fibrillation (Chronic) I48.0 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 Pure hypercholesterolemia (Chronic) E78.00 Dyspnea on exertion (Inactive) R06.09 Premature ventricular contraction (Chronic) I49.3 Nonsustained ventricular tachycardia (Chronic) I47.2 Wide-complex tachycardia (Chronic) I47.2 Nonischemic cardiomyopathy (Chronic) I42.8 Dilated cardiomyopathy (Chronic) I42.0 History of GI bleed Z87.19 LISA (obstructive sleep apnea) G47.33 Degenerative joint disease M19.90 - Past Surgical History Surgical History: Past Surgical History (Last Reviewed 10/26/18 @ 11:23 by Sebastián Owusu MD) History of implantable cardioverter-defibrillator (ICD) placement (Chronic) Onset Date: ~12/2012 Z95.810 History of hip surgery Z98.890 Hx of appendectomy Z90.49 - Family History Summary Family History: Family History (Last Reviewed 10/26/18 @ 11:23 by Sebastián Owusu MD) Grandmother CHF (congestive heart failure) Grandfather CHF (congestive heart failure) Father CHF (congestive heart failure) Social History - Smoking History Smoking Status: Former smoker - quit 1970 Hx Tobacco Use: No Hx Smoking Exposure: No - Alcohol Use Alcohol Usage: No - Substance Abuse Hx Substance Use: No - Occupation Occupation (List type of work in comments):: Retired - Hobbies, Recreation, Social Activities Hobbies: Other - tractor ash collector and shows Recreational Activities: I am able to engage in all my recreational activities Social Environment - Status Marital Status: - Current Living Arrangements Living Environment:: Spouse - Children How many children do you have?: 8 Do any of your children live nearby?: Yes - Safety Do you feel safe in your surroundings?: Yes - Assistance Do you need any assistance at home?: family Review of Systems - Review of Systems Hints: Right click = Denies (Slash). Left click = Reports ([place]) Review of Present Symptoms: Reports: Shortness of Breath at Rest - slight, Shortness of Breath with Exertion, Fatigue - some days better than others., Appetite - Normal, Appetite - Special Diet - low salt, low fat diet, Sexual Changes - hoping to use viagra in future, has ED.. Denies: PVD, Operative Discomfort, Angina, Wound Healing, Dizziness/Lightheadedness, Heart Arrhythmia/Irregularities, Sleep - Normal - Pain Is Patient Pain Free?: No Risk Factor Assessment - Chief Complaint Chief Complaint: CHF - Vital Signs Pulse Ox: 98 - Pulse Pulse Rate: 71 Pulse Rhythm: Regular - Hypertension Blood Pressure Sitting - Right Arm: 90/60 Blood Pressure Sitting - Left Arm: 100/60 - Diabetes Nutrition Referral for Diabetes: No - Obesity Height: 6 ft 1 in Weight:: 170 lb Weight in Pounds: 170.0 lbs Weight Source: Stated by Patient Body Mass Index (BMI): 22.4 Desired Body Weight: 175 Realistic Weight Goal (Loss of 1-2 lbs/week): 175 Nutritional Referral for Obesity: No - Physical Inactivity Physical Inactivity: None - Risk Stratification Risk Guidelines: Lowest Risk: Risk Factor for Smoking, Risk Factor for Dyslipidemia, Risk Factor for Diabetes, Risk Factor for Obesity, Risk Factor for Hypertension, Risk Factor for Depression, Moderate Risk: Risk Factor for Sedentary Lifestyle - For Smoking Smoking Risk Guidelines: Smoking Low Risk: None or quit greater than 6 months ago. Smoking Moderate Risk: Smoker or quit 6 months or less ago. Smoking High Risk: Smoker - For Dyslipidemia Dyslipidemia Risk Guidelines: Low Risk: Moderate Risk: High Risk: 15-25% fat 25.1-29% fat >/= 30% fat. <7% sat fat 7-9% sat fat >9% sat fat. <150 mg chol 150-299 mg chol >/= 300 mg chol. LDL <100 LDL 100-129 LDL >/= 130. Chol/HDL ratio <5.0 Chol/HDL ratio 5.0-6.0 Chol/HDL ratio >6.0. Triglycerides <100 Triglycerides 100-149 Triglycerides >/= 150 - For Diabetes Mellitus Diabetes Risk Guidelines: Diabetes Low Risk: HgA1c <6.5% and/or FBG <120. Diabetes Moderate Risk: HgA1c 6.6-7.9% and/or FBG 120-180. Diabetes High Risk: HgA1c >/= 8% and/or FBG >180 - For Obesity/Overweight Obesity/Overweight Risk Guidelines: Obesity Low Risk: BMI <25.0. Obesity Moderate Risk: BMI 25-29.9. Obesity High Risk: BMI >/= 30.0 - For Hypertension Hypertension Risk Guidelines: Hypertension Low Risk: Systolic <120 and Diastolic <80. Hypertension Moderate Risk: Systolic 120-139 and Diastolic 80-89. Hypertension High Risk: Systolic >/= 140 and Diastolic >/= 90 - For Sedentary Lifestyle Sedentary Lifestyle Risk Guidelines: Sedentary Lifestyle Low Risk: >/= 1,500 kcal/week. Sedentary Lifestyle Moderate Risk: 700-1,499 kcal/week. Sedentary Lifestyle High Risk: < 700 kcal/week - For Depression Depression Risk Guidelines: Depression Low Risk: Not clinically depressed. Depression Moderate Risk: Mildly depressed. 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) Z79.01 Chronic systolic (congestive) heart failure (Chronic) I50.22 Paroxysmal atrial fibrillation (Chronic) I48.0 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 Pure hypercholesterolemia (Chronic) E78.00 Dyspnea on exertion (Inactive) R06.09 Premature ventricular contraction (Chronic) I49.3 Nonsustained ventricular tachycardia (Chronic) I47.2 Wide-complex tachycardia (Chronic) I47.2 Nonischemic cardiomyopathy (Chronic) I42.8 Dilated cardiomyopathy (Chronic) I42.0 History of GI bleed Z87.19 LISA (obstructive sleep apnea) G47.33 Degenerative joint disease M19.90 - Past Surgical History Surgical History: Past Surgical History (Last Reviewed 10/26/18 @ 11:23 by Sebastián Owusu MD) History of implantable cardioverter-defibrillator (ICD) placement (Chronic) Onset Date: ~12/2012 Z95.810 History of hip surgery Z98.890 Hx of appendectomy Z90.49 - Family History Summary Family History: Family History (Last Reviewed 10/26/18 @ 11:23 by Sebastián Owusu MD) Grandmother CHF (congestive heart failure) Grandfather CHF (congestive heart failure) Father CHF (congestive heart failure) Risk Factor Assessment - For Smoking Smoking Risk Guidelines: Smoking Low Risk: None or quit greater than 6 months ago. Smoking Moderate Risk: Smoker or quit 6 months or less ago. Smoking High Risk: Smoker - For Dyslipidemia Dyslipidemia Risk Guidelines: Low Risk: Moderate Risk: High Risk: 15-25% fat 25.1-29% fat >/= 30% fat. <7% sat fat 7-9% sat fat >9% sat fat. <150 mg chol 150-299 mg chol >/= 300 mg chol. LDL <100 LDL 100-129 LDL >/= 130. Chol/HDL ratio <5.0 Chol/HDL ratio 5.0-6.0 Chol/HDL ratio >6.0. Triglycerides <100 Triglycerides 100-149 Triglycerides >/= 150 - For Diabetes Mellitus Diabetes Risk Guidelines: Diabetes Low Risk: HgA1c <6.5% and/or FBG <120. Diabetes Moderate Risk: HgA1c 6.6-7.9% and/or FBG 120-180. Diabetes High Risk: HgA1c >/= 8% and/or FBG >180 - For Obesity/Overweight Obesity/Overweight Risk Guidelines: Obesity Low Risk: BMI <25.0. Obesity Moderate Risk: BMI 25-29.9. Obesity High Risk: BMI >/= 30.0 - For Hypertension Hypertension Risk Guidelines: Hypertension Low Risk: Systolic <120 and Diastolic <80. Hypertension Moderate Risk: Systolic 120-139 and Diastolic 80-89. Hypertension High Risk: Systolic >/= 140 and Diastolic >/= 90 - For Sedentary Lifestyle Sedentary Lifestyle Risk Guidelines: Sedentary Lifestyle Low Risk: >/= 1,500 kcal/week. Sedentary Lifestyle Moderate Risk: 700-1,499 kcal/week. Sedentary Lifestyle High Risk: < 700 kcal/week - For Depression Depression Risk Guidelines: Depression Low Risk: Not clinically depressed. Depression Moderate Risk: Mildly depressed. Depression High Risk: Clinically depressed - Family History Family History: Family History (Last Reviewed 10/26/18 @ 11:23 by Sebastián Owusu MD) Grandmother CHF (congestive heart failure) Grandfather CHF (congestive heart failure) Father CHF (congestive heart failure)
[2018-12-23 10:23] VITALS: BP 100/60; BP 90/60; PULSE 71; O2SAT 98; BMI 22.4
== END | disposition home or self-care (01) ==
PROVIDERS: Family Provider Internal Medicine; PCP Internal Medicine
DX: I50.9 Heart failure, unspecified (principal)

== ENCOUNTER 2018-12-28 15:24 | Outpatient (RCR) | payer MEDICARE, SELFPAY ==
[2018-11-20 12:48] VITALS: BMI 24.5
[2018-12-17 11:42] LABS: International Normalized Ratio 3.3; Prothrombin Time (Protime)PT. 34.1 SECONDS (11.7-14.9)
[2018-12-28 15:42] LABS: International Normalized Ratio 2.9; Prothrombin Time (Protime)PT. 30.1 SECONDS (11.7-14.9)
== END 2018-12-28 18:00 | disposition home or self-care (01) ==
LOC: LAB 15:24
PROVIDERS: Family Provider Internal Medicine; PCP Internal Medicine; Referring Provider Internal Medicine Cardiovascular Disease; Visit Provider Internal Medicine Cardiovascular Disease
DX: I50.22 Chronic systolic (congestive) heart failure (principal); I48.0 Paroxysmal atrial fibrillation; I51.3 Intracardiac thrombosis, not elsewhere classified
CPT/HCPCS: 36415; 85610

== ENCOUNTER → 2018-12-28 | Outpatient (CLI) | payer MEDICARE, SELFPAY ==
[2018-11-20 12:48] VITALS: BMI 24.5
[2018-12-23 10:23] VITALS: BMI 22.4
--- NOTE | 2018-12-28 13:45 | ECHOL_ITS ---
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 Limited views were obtained. Exam performed in department. Doppler Measurements & Calculations MV V2 max: 54.9 cm/sec MV max P.2 mmHg MV V2 mean: 39.7 cm/sec MV mean P.68 mmHg MV V2 VTI: 11.4 cm Interpretation Summary Limited views were obtained. Limited transthoracic echocardiogram for biventricular ICD optimization using mitral valve VTI. AV delay: 200 ms: Mitral valve V-max: 0.55 m/s Mitral valve the mean: 0.3 m/s Mitral valve max peak gradient: 1.20 mmHg Mitral valve mean peak gradient: 0.64 mmHg Mitral valve VTI: 11.1 cm AV delay: 230 ms: Mitral valve VTI information unable to be obtained AV delay: 260 ms: Mitral valve V-max: 0.55 m/s Mitral valve E mean: 0.42 m/s Mitral valve V max peak gradient: 1.2 mmHg Mitral valve mean peak gradient: 0.74 mmHg Mitral valve VTI: 11.9 cm Ordering Physician: Irvin Allen Referring Physician: Irvin Allen MD Performed By: Violetta Stewart, ROLANDO, RVT
[2018-12-28 16:39] LABS: BNP,B-Type NATRIURETIC PEPTIDE 3314.6 pg/mL (0-100)
[2018-12-28 16:40] LABS: Anion Gap 8 (5-15); BUN 34 mg/dL (7-18); BUN/Creat Ratio 13.5 RATIO (10-20); Calcium,Total 8.5 mg/dL (8.5-10.1); Chloride 96 mmol/L (98-107); Creatinine, Serum 2.52 mg/dL (0.70-1.30); EST Glomerular Filtration Rate 27 mL/min (>60); Est Glom Filt Rate - Afr Amer 32 mL/min (>60); Glucose 104 mg/dL (74-106); Sodium Level 134 mmol/L (136-145)
== END | disposition home or self-care (01) ==
PROVIDERS: Family Provider Internal Medicine; PCP Internal Medicine; Referring Provider Internal Medicine Cardiovascular Disease; Visit Provider Internal Medicine Cardiovascular Disease
DX: R06.02 Shortness of breath (principal); I50.22 Chronic systolic (congestive) heart failure; I48.0 Paroxysmal atrial fibrillation; I51.3 Intracardiac thrombosis, not elsewhere classified; I42.8 Other cardiomyopathies; I42.0 Dilated cardiomyopathy; Z95.810 Presence of automatic (implantable) cardiac defibrillator
CPT/HCPCS: 36415; 80048; 83880; 85610; 93308

== ENCOUNTER → 2018-12-30 | Outpatient (CLI) | payer MEDICARE, SELFPAY ==
[2018-12-23 10:23] VITALS: BMI 22.4
[2018-12-30 11:01] LABS: Anion Gap 6 (5-15); BUN 34 mg/dL (7-18); BUN/Creat Ratio 14.2 RATIO (10-20); Calcium,Total 8.3 mg/dL (8.5-10.1); Chloride 97 mmol/L (98-107); EST Glomerular Filtration Rate 28 mL/min (>60); Est Glom Filt Rate - Afr Amer 34 mL/min (>60); Glucose 128 mg/dL (74-106); Potassium 2.9 mmol/L (3.5-5.1); Sodium Level 132 mmol/L (136-145)
[2018-12-31 09:23] LABS: Magnesium 2.1 mg/dL (1.6-2.6)
== END | disposition home or self-care (01) ==
LOC: LAB 10:20
PROVIDERS: Family Provider Internal Medicine; PCP Family Medicine
DX: R06.02 Shortness of breath (principal); I50.9 Heart failure, unspecified
CPT/HCPCS: 36415; 80048; 83735; 83880

== ENCOUNTER 2018-12-31 11:30 | Outpatient (RCR) | payer MEDICARE, SELFPAY ==
[2018-12-23 10:23] VITALS: BMI 22.4
== END 2019-01-06 23:59 ==
LOC: CR 11:30
PROVIDERS: Family Provider Internal Medicine; PCP Internal Medicine
DX: R06.02 Shortness of breath (principal)
CPT/HCPCS: 93798

== ENCOUNTER 2019-01-03 12:46 | Emergency (ER) | payer MEDICARE, SELFPAY ==
[2018-12-23 10:23] VITALS: BMI 22.4
[2019-01-03 12:47] VITALS: BP 111/74; PULSE 81; RESP 16; TEMP 36.8; O2SAT 97; BMI 24.7
--- NOTE | 2019-01-03 13:15 | RAD_ITS ---
STUDY: X-RAY CHEST REASON FOR EXAM: Male, 78 years old. Increasing shortness of breath. TECHNIQUE: Single AP portable view of the chest. COMPARISON: Comparison is made with prior study of November 20, 2018. FINDINGS: EKG electrodes are seen. Mild degree of vascular congestion. Increased markings at the lung bases worse on the right side with blunting of the right costo phrenic angle. There is mild cardiac enlargement. A left-sided dual chamber pacemaker is seen. Normal mediastinum and jeffrey. Normal visualized pulmonary arteries. Normal visualized aortic arch and descending thoracic aorta. Normal visualized thoracic spine. Normal visualized ribs, clavicles, and shoulders. There is no demonstrated abnormality of the visualized soft tissue structures of the upper abdomen. RAD/Chest 1 View (Portable) IMPRESSION: Cardiomegaly. Mild degree of CHF with blunting of the right costophrenic angle Electronically Signed: Blaise Livingston, at 14:01 EDT , Service support ,
--- NOTE | 2019-01-03 13:23 | EKG12_ITS ---
Test Reason : SOB Blood Pressure : / mmHG Vent. Rate : 088 BPM Atrial Rate : 108 BPM P-R Int : 000 ms QRS Dur : 192 ms QT Int : 536 ms P-R-T Axes : 000 127 098 degrees QTc Int : 648 ms Ventricular-paced rhythm Biventricular pacemaker detected Abnormal ECG Confirmed by NICOLLE ZABALA ([id number]), technical editor ANGIE WASHINGTON ([id number]) on 01/10/2019 9:06:14 AM Referred By: AZIZA Confirmed By:NICOLLE ZABALA
[2019-01-03 13:38] VITALS: O2SAT 97
[2019-01-03 13:42] VITALS: BP 115/82; PULSE 88; RESP 25; O2SAT 96; O2SAT 97
--- NOTE | 2019-01-03 13:47 | ED.VIS.GEN ---
History of Present Illness Chief Complaint: Shortness of Breath Informant: Patient Onset: Days Current Severity: Mild Narrative: The patient has a history of cardiomyopathy, cardiac defibrillator, ejection fraction of 10%, hypertension, he was seen by his physicians Thursday for routine visit chronic cough work-up was unremarkable, he felt as if he had extra fluid on his chest: Because he kept coughing, he took an extra dose of Lasix, he had urine output continue to cough he spoke with his physicians office he was brought to the hospital for evaluation by . He has no history of ischemic heart disease valvular heart disease, his cardiomyopathy has been present since he was age 61 thought to be either congenital or related to other causes, he is had recent prior extensive cardiovascular evaluation that was unremarkable his cardiovascular status with ejection fraction 10% and remained stable Chronically short of breath he chronically has exertional symptoms he has no orthopnea none of the symptoms are new or different Past Medical History - Allergies and Home Meds Allergies/Adverse Reactions: Allergies Penicillins Allergy (Verified 01/03/19 12:51) Hives Sulfa (Sulfonamide Antibiotics) Allergy (Verified 01/03/19 12:51) Hives MILKA Inhibitors Adverse Reaction (Severe, Verified 01/03/19 12:51) cough Ncezkwy-Qjh-Qqd Reductase Inhibitor Adverse Reaction (Verified 01/03/19 12:51) Other Primary Care Physician: Guero Ashton MD [Primary Care Provider] - Past Medical History: - - As above to also include statin related muscular problems, Smoking Status: Former smoker Review of Systems General: Denies: Chills, Fever, Sweats Eyes: Denies: Visual changes - bilaterally, Diplopia ENT: Denies: Rhinorrhea, Sore throat Cardiovascular: Denies: Chest pain, Palpitations Respiratory: Reports: Dyspnea, Cough, Dyspnea on exertion - -Dyspnea that are chronic, - Gastrointestinal: Denies: Abdominal pain, Nausea, Vomiting, Diarrhea, Melena, Hematochezia Genitourinary: Denies: Dysuria, Hematuria, Frequency Musculoskeletal: Denies: Back pain, Extremity Pain Skin: Denies: Rash, Wounds Neurological: Denies: Headache, Weakness, Numbness Physical Exam Vital Signs/Narrative: Vital Signs Temp Pulse Resp BP Pulse Ox 01/03/19 13:42 88 25 H 115/82 H 97 01/03/19 12:47 98.3 F 81 16 111/74 97 General: Well nourished, Well developed, No Acute Distress Head: Normocephalic, Atraumatic Eyes: Perrl, EOMI ENT: Moist mucous membranes, No rhinorrhea Neck: Supple, Nontender Cardiovascular: Regular rate, Regular rhythm, No murmurs Respiratory: No distress, CTA bilaterally, Chest nontender, Diminished Abdomen: Soft, Nontender, Nondistended, Normal bowel sounds Back: Nontender, Normal Inspection Extremities: Nontender, No edema Skin: Normal color, No rash Neurological: Alert, Oriented x3, Cranial nerves II-XII grossly intact, Normal Strength, Normal Sensation Psychological: Normal affect, Normal Mood Diagnostic/Tx/Re-eval - Medical Decision Making His physical exam is unremarkable, he has an EKG that shows a ventricularly paced rate 90, his vital signs are unremarkable his pulse ox on room air is 97% he denies orthopnea PND leg edema he is had normal urine output, Does complain of chronic dyspnea and chronic dyspnea on exertion the cough is new and apparently more frequent and prominent in the last few days Occasions physicians adjusted some of his medications to help with the cough Thursday The patient's EKG shows a paced rhythm no acute otherwise ab normalities, the patient screening labs are generally unremarkable his creatinine is close to his baseline, his BNP is about 4000 been in that range before the chest x-ray is unremarkable he is voided urine multiple times here Did page Dr. Guero Ashton to discuss the case with him and he is not available to call back per staff Discussed the patient his vital signs remain normal I discussed inpatient versus outpatient management with him he states he feels fine now he wants to go home he does not wish to be admitted we discussed him taking an additional 40 mg of Lasix today at 7 PM, and then follow-up with his [employer] operations specialist or Dr. Ashton tomorrow return for change in symptoms Home stable declined admission Impression final Cardio myopathy with ejection fraction 10%, acute recurrent dyspnea ED Disposition - Plan for ED Patient: Diagnosis: Dilated cardiomyopathy Instructions: CHF, General Referrals: Guero Ashton MD [Primary Care Provider] -
[2019-01-03 13:52] LABS: Absolute Lymphocyte Count 0.78 X10^3/uL (0.83-4.51); Absolute Neutrophil Count 4.9 X10^3/uL (2.0-7.7); Basophil# 0.04 X10^3/uL; Basophil% 0.6 % (0-1); Eosinophil# 0.15 X10^3/uL; Eosinophils% 2.3 % (0-5); Hematocrit 32.5 % (40-54); Hemoglobin 10.7 g/dL (13.0-16.5); Lymphocyte # 0.78 X10^3/ul (4.0); Lymphocyte % 12.1 % (19-41); Mean Corp Hgb Conc 32.9 g/dL (32-36); Mean Corpuscular Hgb 31.8 pg (27.0-32.0); Mean Corpuscular Volume 96.7 fL (80-94); Mean Platelet Vol. 9.9 fl (6.2-12.0); Monocyte# 0.56 X10^3/uL; Monocyte% 8.7 % (0-10); NRBC Flagged by Analyzer 0 % (0-5); Platelet Count 121 K/mm3 (150-450); RBC Distribution Width SD 56.8 fl (35.1-43.9); Red Blood Count 3.36 M/mm3 (4.6-6.2); White Blood Count 6.5 K/mm3 (4.4-11.0)
[2019-01-03 14:13] LABS: Anion Gap 9 (5-15); BUN 37 mg/dL (7-18); BUN/Creat Ratio 14.2 RATIO (10-20); Chloride 92 mmol/L (98-107); Creatinine, Serum 2.61 mg/dL (0.70-1.30); EST Glomerular Filtration Rate 25 mL/min (>60); Est Glom Filt Rate - Afr Amer 31 mL/min (>60); Estimated Creatinine Clearance 26.02 ml/min; Glucose 113 mg/dL (74-106); Potassium 3.8 mmol/L (3.5-5.1); Sodium Level 130 mmol/L (136-145)
[2019-01-03 14:21] LABS: BNP,B-Type NATRIURETIC PEPTIDE 3867.4 pg/mL (0-100)
[2019-01-03 15:22] VITALS: BP 119/81; PULSE 89; RESP 16; O2SAT 93
[2019-01-03 15:57] VITALS: BP 113/80; PULSE 86; RESP 14; O2SAT 93
== END 2019-01-03 15:45 | disposition home or self-care (01) ==
LOC: ED 13:44
PROVIDERS: Emergency Provider Emergency Medicine; Family Provider Family Medicine; PCP Family Medicine
DX: I42.0 Dilated cardiomyopathy (principal); I10 Essential (primary) hypertension; Z95.810 Presence of automatic (implantable) cardiac defibrillator; Z87.891 Personal history of nicotine dependence; Z79.899 Other long term (current) drug therapy
CPT/HCPCS: 71045; 80048; 83880; 84484; 85025; 93005; 94760; 99284; J7030; A4216

== ENCOUNTER → 2019-01-06 | Outpatient (CLI) | payer MEDICARE, SELFPAY ==
[2019-01-03 12:47] VITALS: BMI 24.7
[2019-01-06 12:13] LABS: Absolute Lymphocyte Count 0.61 X10^3/uL (0.83-4.51); Absolute Neutrophil Count 4.6 X10^3/uL (2.0-7.7); Basophil# 0.02 X10^3/uL; Basophil% 0.3 % (0-1); Eosinophil# 0.26 X10^3/uL; Eosinophils% 4.4 % (0-5); Hematocrit 32.8 % (40-54); Hemoglobin 10.7 g/dL (13.0-16.5); Lymphocyte # 0.61 X10^3/ul (4.0); Lymphocyte % 10.3 % (19-41); Mean Corp Hgb Conc 32.6 g/dL (32-36); Mean Corpuscular Volume 98.2 fL (80-94); Mean Platelet Vol. 10.5 fl (6.2-12.0); Monocyte# 0.42 X10^3/uL; Monocyte% 7.1 % (0-10); NRBC Flagged by Analyzer 0 % (0-5); Neutrophil # 4.59 X10^3/uL (2.7-7.7); Neutrophil % 77.1 % (47-70); Platelet Count 139 K/mm3 (150-450); RBC Distribution Width CV 16.5 % (11.6-14.6); RBC Distribution Width SD 57.7 fl (35.1-43.9); Red Blood Count 3.34 M/mm3 (4.6-6.2)
[2019-01-06 12:30] LABS: Prothrombin Time (Protime)PT. 31.6 SECONDS (11.7-14.9)
[2019-01-06 12:34] LABS: ALB/GLOB Ratio 0.7 RATIO (0.9-2.4); AST(SGOT) 18 U/L (15-37); Alanine Aminotransfer ALT/SGPT 21 U/L (16-61); Albumin, Serum 2.8 g/dL (3.2-5.0); Alkaline Phosphatase 61 U/L (45-117); Anion Gap 8 (5-15); BUN 36 mg/dL (7-18); BUN/Creat Ratio 13.2 RATIO (10-20); Calcium,Total 8.6 mg/dL (8.5-10.1); Chloride 94 mmol/L (98-107); Creatinine, Serum 2.73 mg/dL (0.70-1.30); EST Glomerular Filtration Rate 24 mL/min (>60); Est Glom Filt Rate - Afr Amer 29 mL/min (>60); Globulin 4.3 g/dL (2.2-4.2); Glucose 131 mg/dL (74-106); Magnesium 2.6 mg/dL (1.6-2.6); Potassium 3.6 mmol/L (3.5-5.1); Protein, Total 7.1 g/dL (6.4-8.2); Sodium Level 133 mmol/L (136-145); Thyroid Stim Hormone (TSH) 6.22 uIU/mL (0.358-3.74)
[2019-01-06 12:56] LABS: Microalbumin,Random Urine 43.8 mg/L (NO RANGE EST.); Microalbumin:Creatinine Ratio 52.3 mg/g CRE (<30 mg/g CRE)
== END | disposition home or self-care (01) ==
LOC: MFPLAB 10:35
PROVIDERS: Family Provider Family Medicine; PCP Family Medicine; Visit Provider Family Medicine
DX: I50.9 Heart failure, unspecified (principal); N18.3 Chronic kidney disease, stage 3 (moderate); E87.6 Hypokalemia; R06.02 Shortness of breath
CPT/HCPCS: 36415; 80053; 82043; 82570; 83735; 83880; 84443; 85025; 85610

== ENCOUNTER 2019-01-10 10:44 | Outpatient (RCR) | payer MEDICARE, SELFPAY ==
--- NOTE | 2019-01-25 06:36 | PCM.CR.ITP ---
Exercise - 30-day Assessment - Visit Date of Eval: 01/25/19 Session #:: 11 - PATIENT ONLY ATTENDED 2 SESSIONS OF CR, LAST ATTENDED ON 12/28/2018 DUE TO DIZZINESS LIGHTHEADEDNESS. PATIENT WAS TO FOLLOW UP WITH PHYSICIAN AND HAS NOT CONTACTED US. HE HAS BEEN DISCHARGED FROM CR AT THIS TIME. - Stages of Change Stages of Change:: Relapse Nutrition - Initial Assessment - Program Goals Nutrition Program Goals: LDL <70. Total Cholesterol <200. HDL >45. Triglycerides <150. HgbA1C <7%. BMI <25 - Diabetes Do you monitor your blood sugar at home?: No Tobacco - Initial Assessment - Program Goals Tobacco Program Goals: Complete smoking cessation. Attend education classes. Improve Knowledge Test score - Learning Barriers Learning Barriers: Hearing, Ready to Learn Psychosocial - Initial Assess - Target Goals Target Goals: Assess presence or absence of depression. Using a valid screening tool, maximizes coping skills. Positive support system - Psychosocial Test Tool Used:: HANDS Depression Questionnaire - Assistive Devices Fall Risk Assessed:: Yes
== END 2019-02-05 23:59 ==
LOC: CR 10:44
PROVIDERS: Family Provider Family Medicine; PCP Family Medicine
DX: R06.02 Shortness of breath (principal)
CPT/HCPCS: 93798

== ENCOUNTER → 2019-02-02 17:53 | Outpatient (CLI) | payer MEDICARE, SELFPAY ==
[2019-01-03 12:47] VITALS: BMI 24.7
[2019-02-02 18:44] LABS: Anion Gap 10 (5-15); BUN 40 mg/dL (7-18); BUN/Creat Ratio 16.7 RATIO (10-20); Calcium,Total 8.5 mg/dL (8.5-10.1); Chloride 96 mmol/L (98-107); EST Glomerular Filtration Rate 28 mL/min (>60); Est Glom Filt Rate - Afr Amer 34 mL/min (>60); Glucose 106 mg/dL (74-106); Potassium 3.7 mmol/L (3.5-5.1); Sodium Level 137 mmol/L (136-145)
== END ==
PROVIDERS: Family Provider Family Medicine; PCP Family Medicine; Referring Provider Family Medicine; Visit Provider Family Medicine
DX: I50.43 Acute on chronic combined systolic (congestive) and diastolic (congestive) heart failure (principal)
CPT/HCPCS: 80048

== ENCOUNTER → 2019-02-04 15:20 | Outpatient (CLI) | payer MEDICARE, SELFPAY ==
[2019-02-04 15:56] LABS: Anion Gap 9 (5-15); BUN 41 mg/dL (7-18); Calcium,Total 8.6 mg/dL (8.5-10.1); Chloride 92 mmol/L (98-107); Creatinine, Serum 2.92 mg/dL (0.70-1.30); EST Glomerular Filtration Rate 22 mL/min (>60); Est Glom Filt Rate - Afr Amer 27 mL/min (>60); Glucose 106 mg/dL (74-106); Potassium 3.9 mmol/L (3.5-5.1); Sodium Level 131 mmol/L (136-145)
== END ==
PROVIDERS: Family Provider Family Medicine; PCP Family Medicine; Referring Provider Family Medicine; Visit Provider Family Medicine
DX: I50.43 Acute on chronic combined systolic (congestive) and diastolic (congestive) heart failure (principal)
CPT/HCPCS: 80048

== ENCOUNTER → 2019-02-09 15:46 | Outpatient (CLI) | payer MEDICARE, SELFPAY ==
[2019-02-09 16:31] LABS: Absolute Lymphocyte Count 0.56 X10^3/uL (0.83-4.51); Basophil# 0.03 X10^3/uL; Basophil% 0.6 % (0-1); Eosinophil# 0.02 X10^3/uL; Eosinophils% 0.4 % (0-5); Hematocrit 31.5 % (40-54); Hemoglobin 10.4 g/dL (13.0-16.5); Lymphocyte # 0.56 X10^3/ul (4.0); Lymphocyte % 10.7 % (19-41); Mean Corpuscular Hgb 33.1 pg (27.0-32.0); Mean Corpuscular Volume 100.3 fL (80-94); Mean Platelet Vol. 10.2 fl (6.2-12.0); Monocyte# 0.63 X10^3/uL; NRBC Flagged by Analyzer 0 % (0-5); Neutrophil # 3.97 X10^3/uL (2.7-7.7); Neutrophil % 75.9 % (47-70); POSITIVE DIFFERENTIAL YES; Platelet Count 133 K/mm3 (150-450); RBC Distribution Width CV 17.1 % (11.6-14.6); RBC Distribution Width SD 62.3 fl (35.1-43.9); Red Blood Count 3.14 M/mm3 (4.6-6.2); White Blood Count 5.2 K/mm3 (4.4-11.0)
[2019-02-09 16:57] LABS: ALB/GLOB Ratio 0.9 RATIO (0.9-2.4); AST(SGOT) 23 U/L (15-37); Alanine Aminotransfer ALT/SGPT 21 U/L (16-61); Albumin, Serum 3.4 g/dL (3.2-5.0); Alkaline Phosphatase 63 U/L (45-117); Anion Gap 9 (5-15); BUN 38 mg/dL (7-18); BUN/Creat Ratio 11.4 RATIO (10-20); Calcium,Total 8.8 mg/dL (8.5-10.1); Chloride 92 mmol/L (98-107); Creatinine, Serum 3.32 mg/dL (0.70-1.30); EST Glomerular Filtration Rate 19 mL/min (>60); Est Glom Filt Rate - Afr Amer 23 mL/min (>60); Globulin 3.8 g/dL (2.2-4.2); Glucose 119 mg/dL (74-106); Magnesium 2.8 mg/dL (1.6-2.6); Protein, Total 7.2 g/dL (6.4-8.2); Sodium Level 129 mmol/L (136-145); Thyroid Stim Hormone (TSH) 7.11 uIU/mL (0.358-3.74)
[2019-02-09 17:01] LABS: Differential Indicated SCAN CRITERIA MET
[2019-02-09 17:23] LABS: Differential Comment SCANNED
== END ==
PROVIDERS: Family Provider Family Medicine; PCP Family Medicine; Referring Provider Family Medicine; Visit Provider Family Medicine
DX: I42.9 Cardiomyopathy, unspecified (principal); R19.7 Diarrhea, unspecified
CPT/HCPCS: 80053; 83735; 84443; 85025

== ENCOUNTER → 2019-02-14 16:22 | Outpatient (CLI) | payer MEDICARE, SELFPAY ==
[2019-02-14 17:08] LABS: Anion Gap 9 (5-15); BUN 45 mg/dL (7-18); BUN/Creat Ratio 12.1 RATIO (10-20); Calcium,Total 9.1 mg/dL (8.5-10.1); Chloride 92 mmol/L (98-107); Creatinine, Serum 3.71 mg/dL (0.70-1.30); EST Glomerular Filtration Rate 17 mL/min (>60); Est Glom Filt Rate - Afr Amer 21 mL/min (>60); Glucose 128 mg/dL (74-106); Magnesium 2.7 mg/dL (1.6-2.6); Potassium 4.3 mmol/L (3.5-5.1); Sodium Level 131 mmol/L (136-145)
== END ==
PROVIDERS: Family Provider Family Medicine; PCP Family Medicine
DX: I50.43 Acute on chronic combined systolic (congestive) and diastolic (congestive) heart failure (principal)
CPT/HCPCS: 80048; 83735

== ENCOUNTER 2019-02-19 13:00 | Emergency (ER) | payer MEDICARE, SELFPAY ==
[2019-02-19] VITALS (7 sets, daily range): BP systolic 92–122; BP diastolic 69–93; PULSE 78–82; RESP 18–30; TEMP 36.5–36.6; O2SAT 95–99; BMI 23.7
--- NOTE | 2019-02-19 13:25 | RAD_ITS ---
STUDY: X-RAY CHEST REASON FOR EXAM: Male, 78 years old. Shortness of breath. TECHNIQUE: PA and lateral views of the chest. COMPARISON: 01/03/2019. FINDINGS: There is a new right-sided central venous catheter with its tip in the distal superior vena cava. There again is a dual-chamber left-sided pacemaker in stable position. There again are prominent markings in the right lung base appear to be chronic. There is vague density in the left lung base and blunting of the left costophrenic angle. There is no demonstrated pleural abnormality. Normal size heart. Normal mediastinum and jeffrey. Normal visualized pulmonary arteries. There is atherosclerotic tortuosity of the aortic arch and descending thoracic aorta. There are mild degenerative changes of the visualized thoracic spine. Normal visualized ribs, clavicles, and shoulders. There is no demonstrated abnormality of the visualized soft tissue structures of the upper abdomen. RAD/Chest PA and Lateral IMPRESSION: New mild left basilar infiltrate/atelectasis and small left pleural effusion. Electronically Signed: Uzair Jackson MD at 14:29 EST Tel , Service support ,
--- NOTE | 2019-02-19 13:27 | EKG12_ITS ---
Test Reason : GEN ILLNESS Blood Pressure : / mmHG Vent. Rate : 076 BPM Atrial Rate : 076 BPM P-R Int : 190 ms QRS Dur : 196 ms QT Int : 532 ms P-R-T Axes : 031 -37 087 degrees QTc Int : 598 ms Atrial-sensed ventricular-paced rhythm Biventricular pacemaker detected Abnormal ECG Confirmed by PAM HUERTAS, BEA ([id number]), online editor ANGIE WASHINGTON ([id number]) on 02/23/2019 12:58:37 PM Referred By: JUNIOR Confirmed By:BEA OROZCO MD
--- NOTE | 2019-02-19 13:45 | ED.DCSUM_ITS ---
History of Present Illness Chief Complaint: General Illness Informant: Patient Onset: Yesterday Narrative: Patient is a 78-year-old male with complex medical history including severe dialated cardiomyopathy currently on a milrinone continuous infusion,Cardiorenal syndrome, CKD, atrial fibrillation?on Coumadin, and hyperlipidemia presenting with short worsening shortness of breath and cough. Patient states his symptoms been worsening over the past few days. He had increased difficulty performing activities such as going to the bathroom or changing because of shortness of breath. He is unable to lay flat because of this. He is using 2-3 pillows to sleep. He denies any worsening swelling of his lower extremities. He denies any fever or chills. He has had an associated cough. He denies any other complaints at this time. Patient is followed at the heart failure clinic with Dr. Abebe Past Medical History - Allergies and Home Meds Allergies/Adverse Reactions: Allergies Penicillins Allergy (Verified 02/19/19 13:01) Hives Sulfa (Sulfonamide Antibiotics) Allergy (Verified 02/19/19 13:01) Hives MILKA Inhibitors Adverse Reaction (Severe, Verified 02/19/19 13:01) cough Sfohvnp-Ckz-Pvr Reductase Inhibitor Adverse Reaction (Verified 02/19/19 13:01) Other Primary Care Physician: Guero Ashton MD [Primary Care Provider] - Past Medical History: - - Dilated cardiomyopathy, obstructive sleep apnea, proximal atrial fibrillation, hyperlipidemia, systolic heart failure Surgical History: - - Pacemaker, port for continuous milrinone infusion Lives: Spouse/ Significant Other Smoking Status: Former smoker Review of Systems General: Reports: Malaise. Denies: Chills, Fever, Sweats Eyes: Denies: Visual changes - bilaterally, Diplopia ENT: Denies: Rhinorrhea, Sore throat Cardiovascular: Denies: Chest pain, Palpitations Respiratory: Reports: Dyspnea, Cough, Sputum, Dyspnea on exertion, Orthopnea Gastrointestinal: Denies: Abdominal pain, Nausea, Vomiting, Diarrhea, Melena, Hematochezia Genitourinary: Denies: Dysuria, Hematuria, Frequency Musculoskeletal: Denies: Back pain, Extremity Pain Skin: Denies: Rash, Wounds Neurological: Denies: Headache, Weakness, Numbness Physical Exam Vital Signs/Narrative: Vital Signs Temp Pulse Resp BP Pulse Ox 02/19/19 13:24 80 30 H 92/82 H 95 02/19/19 13:01 97.9 F 78 18 97/69 98 Inital Vital Signs reviewed: Yes General: Well nourished, Well developed, No Acute Distress Head: Normocephalic, Atraumatic Eyes: Perrl, EOMI ENT: Moist mucous membranes, No rhinorrhea Neck: Supple, Nontender Cardiovascular: Regular rate, Regular rhythm, No murmurs Respiratory: CTA bilaterally, Chest nontender, Diminished - At the bases bilaterally, - - Patient become significantly tachypneic with any slight activity such as adjusting himself in the bed, central line and left anterior chest for continuous infusions. Negative for: Rhonchi, Wheezing Abdomen: Soft, Nontender, Nondistended, Normal bowel sounds Back: Nontender, Normal Inspection Extremities: Nontender, No edema Skin: Normal color, No rash Neurological: Alert, Oriented x3, Cranial nerves II-XII grossly intact, Normal Strength, Normal Sensation Psychological: Normal affect, Normal Mood Diagnostic/Tx/Re-eval Chest X-Ray - ED: 2 View, Read by ED Physician, Read by Radiologist, Left Infiltrate, Left Effusion Clinical Impression(s) from Imaging Studies Chest X-Ray 02/19/19 13:25 IMPRESSION: New mild left basilar infiltrate/atelectasis and small left pleural effusion. Electronically Signed: Uzair Jackson MD at 14:29 EST Tel , Service support , Laboratory Data 02/19/19 02/19/19 02/19/19 13:44 13:44 13:44 WBC 5.3 RBC 3.42 L Hgb 11.2 L Hct 33.6 L MCV 98.2 H MCH 32.7 H MCHC 33.3 RDW Std Deviation 55.8 H RDW Coeff of Bebo 15.6 H Plt Count 92 L MPV 9.8 Immature Gran % (Auto) 0.600 Neut % (Auto) 78.0 H Lymph % (Auto) 10.3 L [place] % (Auto) 9.7 Eos % (Auto) 1.0 Baso % (Auto) 0.4 Absolute Neuts (auto) 4.1 Absolute Lymphs (auto) 0.54 L Nucleated RBC % 0 PT INR Sodium 127 L Potassium 4.6 Chloride 92 L Carbon Dioxide 29.0 Anion Gap 6 BUN 38 H Creatinine 3.38 H Estim Creat Clear Calc 20.09 Est GFR (MDRD) Af Amer 23 L Est GFR (MDRD) Non-Af 19 L BUN/Creatinine Ratio 11.2 Glucose 114 H Calcium 8.8 Troponin I < 0.015 B-Natriuretic Peptide > 5000.0 H 02/19/19 13:44 WBC RBC Hgb Hct MCV MCH MCHC RDW Std Deviation RDW Coeff of Bebo Plt Count MPV Immature Gran % (Auto) Neut % (Auto) Lymph % (Auto) [place] % (Auto) Eos % (Auto) Baso % (Auto) Absolute Neuts (auto) Absolute Lymphs (auto) Nucleated RBC % PT 27.3 H INR 2.5 Sodium Potassium Chloride Carbon Dioxide Anion Gap BUN Creatinine Estim Creat Clear Calc Est GFR (MDRD) Af Amer Est GFR (MDRD) Non-Af BUN/Creatinine Ratio Glucose Calcium Troponin I B-Natriuretic Peptide - Rhythm Strip Rhythm Strip: Paced Rate: 76 Ectopy: None - EKG Initial EKG Interpretation: Paced, - - Biventricular pacer at a rate of 76PR interval 190QRS 196QTc 598Normal axisT wave inversions in inferior leads as well as V3 through V6 - Medical Decision Making Patient is evaluated for worsening shortness of breath. It seems to worsen the past few days. He does have associated cough. Patient has a complex medical history and significant heart failure. He appears nontoxic and in no acute distress but he does appear quite tachypneic and symptomatic. Patient does have a new pleural effusion on the left side and atelectasis versus infiltrate. His proBNP is elevated above his last admission and is greater than 5000. His white blood cell count is normal. His creatinine is elevated but at his baseline. His other labs are at his baseline. His troponin is normal. I do believe patient needs admission for likely exacerbation of CHF. Discussed with Dr. Allen, who feels that patient would benefit from transfer to [facility] where his heart failure specialist is. Discussed with Dr. Still who accepts the patient to the atrial you. Accepting physician is Dr. Aroldo Sharif. Patient is agreeable to this plan. He is stable at time of disposition. ED Disposition - Plan for ED Patient: Disposition: [facility] Diagnosis: Acute on chronic diastolic (congestive) heart failure Referrals: Guero Ashton MD [Primary Care Provider] -
[2019-02-19 14:06] LABS: Absolute Lymphocyte Count 0.54 X10^3/uL (0.83-4.51); Absolute Neutrophil Count 4.1 X10^3/uL (2.0-7.7); Basophil# 0.02 X10^3/uL; Basophil% 0.4 % (0-1); Eosinophil# 0.05 X10^3/uL; Hematocrit 33.6 % (40-54); Hemoglobin 11.2 g/dL (13.0-16.5); Lymphocyte # 0.54 X10^3/ul (4.0); Lymphocyte % 10.3 % (19-41); Mean Corp Hgb Conc 33.3 g/dL (32-36); Mean Corpuscular Hgb 32.7 pg (27.0-32.0); Mean Corpuscular Volume 98.2 fL (80-94); Mean Platelet Vol. 9.8 fl (6.2-12.0); Monocyte# 0.51 X10^3/uL; Monocyte% 9.7 % (0-10); NRBC Flagged by Analyzer 0 % (0-5); Neutrophil # 4.11 X10^3/uL (2.7-7.7); POSITIVE COUNT YES; POSITIVE DIFFERENTIAL YES; Platelet Count 92 K/mm3 (150-450); RBC Distribution Width CV 15.6 % (11.6-14.6); RBC Distribution Width SD 55.8 fl (35.1-43.9); Red Blood Count 3.42 M/mm3 (4.6-6.2); White Blood Count 5.3 K/mm3 (4.4-11.0)
[2019-02-19 14:09] LABS: Differential Indicated SCAN CRITERIA MET
[2019-02-19 14:32] LABS: Anion Gap 6 (5-15); BUN 38 mg/dL (7-18); BUN/Creat Ratio 11.2 RATIO (10-20); Calcium,Total 8.8 mg/dL (8.5-10.1); Chloride 92 mmol/L (98-107); Creatinine, Serum 3.38 mg/dL (0.70-1.30); EST Glomerular Filtration Rate 19 mL/min (>60); Est Glom Filt Rate - Afr Amer 23 mL/min (>60); Estimated Creatinine Clearance 20.09 ml/min; Glucose 114 mg/dL (74-106); Potassium 4.6 mmol/L (3.5-5.1); Sodium Level 127 mmol/L (136-145)
[2019-02-19 14:51] LABS: International Normalized Ratio 2.5; Prothrombin Time (Protime)PT. 27.3 SECONDS (11.7-14.9)
[2019-02-19 15:02] LABS: BNP,B-Type NATRIURETIC PEPTIDE > 5000.0 pg/mL (0-100)
== END 2019-02-19 19:05 | disposition short-term general hospital (02) ==
PROVIDERS: Emergency Provider Emergency Medicine; Family Provider Family Medicine; PCP Family Medicine
DX: I50.33 Acute on chronic diastolic (congestive) heart failure (principal); I42.0 Dilated cardiomyopathy; G47.33 Obstructive sleep apnea (adult) (pediatric); I48.91 Unspecified atrial fibrillation; E78.5 Hyperlipidemia, unspecified; N18.9 Chronic kidney disease, unspecified; Z95.0 Presence of cardiac pacemaker; Z79.01 Long term (current) use of anticoagulants; Z79.899 Other long term (current) drug therapy; Z87.891 Personal history of nicotine dependence
CPT/HCPCS: 36592; 71046; 80048; 83880; 84484; 85025; 85610; 87804; 93005; 99284; A4216

== ENCOUNTER 2019-02-27 21:52 | Emergency (ER) | payer SELFPAY ==
[2019-02-19 13:01] VITALS: BMI 23.7
[2019-02-27 21:53] VITALS: BP 98/67; PULSE 94; RESP 39; TEMP 36.1; O2SAT 90; BMI 27.2
[2019-02-27 22:05] VITALS: BP 90/52; PULSE 92; RESP 26
--- NOTE | 2019-02-27 22:17 | ED.DCSUM_ITS ---
History of Present Illness Chief Complaint: Alt LOC Informant: Family, Significant Other - [facility] Narrative: Patient is brought here by EMS for hypoglycemia and depressed level of consciousness in route to inpatient hospice facility here in [place] from their home in nearby [place]. Apparently patient has end-stage congestive heart failure and possibly a pericardial effusion, along with COPD and end-stage renal issues as well. Recently discharged to hospice from inpatient acute care in [place], where he additionally was diagnosed with a line infection related to a central line. Patient was very anxious and agitated, had an especially bad day today, according to family, most of this is due to dyspnea. The hospice [employer] was having a difficult time controlling his symptoms with oxycodone and Xanax, which are currently the only medications he is on since he was taken off of everything els e with regards to medical treatment, and therefore after discussion with multiple family members, all of which you are here in the ER helping to provide history with this case, the decision was made to transfer him to inpatient hospice as it may be easier to control his symptoms with medications. The patient is DNR comfort care only and on hospice. They had a piece of paper indicating this but it was not signed. The durable medical power of civil litigation attorney, the patient's , and approximately 6-8 family members were all present at the home at the time EMS arrived to transport him, and all confirmed this information. However, according to the family, the EMS workers stated to them that since it was not signed, if there were any medical issues in route during transport, they would treat him as a full code and resuscitate him, regardless of their wishes. They felt that they had no choice but to agree in order to get him to inpatient hospice tonight. The family is all in agreement that the patient is near and they want him to comfortably without feeling like he is suffocating. - Past Medical History (1) Anxiety Status: Chronic (2) Cardiogenic shock Status: Chronic (3) Cardiorenal syndrome Status: Chronic (4) CKD (chronic kidney disease) stage 3, GFR 30-59 ml/min Status: Chronic (5) Dilated cardiomyopathy Status: Chronic (6) History of implantable cardioverter-defibrillator (ICD) placement Status: Chronic Comment: ICD function turned off per DC note 01/19/19 @ [facility] (7) Nonsustained ventricular tachycardia Status: Chronic (8) Paroxysmal atrial fibrillation Status: Chronic (9) Pure hypercholesterolemia Status: Chronic Past Medical History - Allergies and Home Meds Allergies/Adverse Reactions: Allergies Penicillins Allergy (Verified 02/27/19 21:58) Hives Sulfa (Sulfonamide Antibiotics) Allergy (Verified 02/27/19 21:58) Hives MILKA Inhibitors Adverse Reaction (Severe, Verified 02/27/19 21:58) cough Iongunq-Bgc-Znp Reductase Inhibitor Adverse Reaction (Verified 02/27/19 21:58) Other Primary Care Physician: Guero Ashton MD [Primary Care Provider] - Surgical History: pacemaker implantation - AICD function disabled recently, - - Pacemaker, port for continuous milrinone infusion Lives: Spouse/ Significant Other Smoking Status: Former smoker Review of Systems ROS: Unable to Obtain Physical Exam Vital Signs/Narrative: Vital Signs Temp Pulse Resp BP Pulse Ox 02/27/19 22:05 92 26 H 90/52 L 02/27/19 21:53 97 F L 94 39 H 98/67 90 General: Well nourished, Well developed Head: Normocephalic, Atraumatic Eyes: Perrl - 1-2mm, EOMI ENT: Dry mucous membranes Neck: Supple, - - no meningismus Respiratory: No distress, CTA bilaterally, Chest nontender Abdomen: Nondistended, Normal bowel sounds Skin: Normal color, No rash, No Trauma Neurological: Normal Strength - moves all 4 ext's, localizing to pain, Normal Sensation, Lethargic Psychological: Agitated - occasionally Diagnostic/Tx/Re-eval - Rhythm Strip Rhythm Strip: pace and capture intermittently Rate: 75 Ectopy: None - Medical Decision Making Patient is difficult to arouse, but he does respond to commands of open and close eyes, but not anything else. He is breathing on his own and his airway is patent. All family is in agreement that he is at end-of-life and they want him to comfortably. Prior to my evaluation, nursing place an IV and gave him D50 for his hypoglycemia in the 30s. On repeat during my examination it is 70. Occasionally during the exam, he would move his arms and give a grimace, as if he was a little uncomfortable. This was not severe and he did not seem to be in any distress. According to the family, this is fairly agitated and uncomfortable for him, and they want this suppressed and they are requesting more of the medications he is on to keep him comfortable. Accordingly, he was given Ativan and morphine. All family members are on the same page here. They do want him to go to inpatient hospice, they do not want him to be resuscitated. Discharged to hospice, I signed a new DNR paper that I had the family fill out so that there is no confusion. ED Disposition - Plan for ED Patient: Disposition: Home or Assisted Living Diagnosis: End of life care Referrals: Guero Ashton MD [Primary Care Provider] - Additional Instructions: Go directly to inpatient Hospice and do not resuscitate; pt is DNR-comfort care only.
[2019-02-27] MEDS: LORazepam 2 MG/ML Syringe 1 MG IV (22:27)
[2019-02-27] MEDS: Dextrose 50%-Water 25 GM/50 ML DISP.SYRIN IV (22:27)
[2019-02-27] MEDS: Morphine 2 MG/ML Syringe IV (22:29)
[2019-02-27 22:36] LABS: Bedside Glucose 70 mg/dL (70-110)
[2019-03-01 07:46] LABS: Bedside Glucose < 10 mg/dL (70-110)
== END 2019-02-27 22:58 | disposition home or self-care (01) ==
PROVIDERS: Emergency Provider Emergency Medicine; Family Provider Family Medicine; PCP Family Medicine
DX: I50.9 Heart failure, unspecified (principal); J44.9 Chronic obstructive pulmonary disease, unspecified; N18.3 Chronic kidney disease, stage 3 (moderate); E16.2 Hypoglycemia, unspecified; Z51.5 Encounter for palliative care; F41.9 Anxiety disorder, unspecified; Z87.891 Personal history of nicotine dependence; Z66 Do not resuscitate
CPT/HCPCS: 82962; 96374; 96375; 99284; J7030; A4216